=== PATIENT | female | born 1945 | race Caucasian/White ===

== ENCOUNTER 2021-04-29 08:48 | Outpatient (REF) | payer MEDICARE, OTHER, SELFPAY ==
[2021-04-29 10:55] LABS: Basophils Percent Auto 0.6 % (0-2)
[2021-04-29 10:57] LABS: Eosinophils Absolute Auto 0.2 X10*3/uL (0.0-0.4); Eosinophils Percent Auto 2.1 % (0-4); Hematocrit 45.1 % (37-47); Hemoglobin 14.2 g/dl (12.0-16.0); Imm Gran Abs Auto 0.02 X10*3/uL (0.00-0.03); Imm Gran Pct Auto 0.3 % (0.0-0.4); Lymphocytes Absolute Auto 1.5 X10*3/uL (1.2-4.9); Lymphocytes Percent Auto 20.8 % (20-40); Mean Corpuscular HGB Conc 31.5 g/dl (31.0-35.0); Mean Corpuscular Volume 95.3 fL (80-98); Mean Platelet Volume 13.4 fL (9.4-12.3); Monocytes Absolute Auto 0.8 X10*3/uL (0.1-1.2); Monocytes Percent Auto 10.4 % (2-11); Neutrophils Absolute Auto 4.8 X10*3/uL (2.0-8.3); Neutrophils Percent Auto 65.8 % (45-73); Platelet Count 193 X10*3/uL (160-400); Red Blood Count 4.73 X10*6/uL (4.20-5.50); Red Cell Distribution Width 13.2 % (11.0-16.0); White Blood Count 7.2 X10*3/uL (4.8-10.8)
[2021-04-29 11:20] LABS: Alanine Aminotransferase 30 U/L (0-31); Alkaline Phosphatase 91 U/L (39-117); Anion Gap 12 (12-20); Aspartate Amino Transferase 27 U/L (5-31); Bilirubin Total 0.7 mg/dL (0.0-1.0); Blood Urea Nitrogen 15 mg/dL (9-16); Calcium 8.9 mg/dL (8.4-10.2); Carbon Dioxide 28 mmol/L (22-29); Chloride 108 mmol/L (96-108); Cholesterol 154 mg/dL; Estimated Glomerular Filt Rate > 60; Glucose Random 97 mg/dL (60-115); HDL Cholesterol 45 mg/dL; LDL Cholesterol Calculated 96 mg/dl; Sodium 143 mmol/L (135-145); Total Protein 6.7 g/dL (6.5-8.0); Triglycerides 69 mg/dL
[2021-04-29 11:42] LABS: Free T4 (Free Thyroxine) 0.82 ng/dL (0.71-1.85); Thyroid Stimulating Hormone 2.81 uIU/mL (0.32-4.0); Vitamin D 25-OH Total 11.4 ng/mL (>30)
[2021-04-29 12:20] LABS: Folate 14.2 ng/mL (> or = 4.0); Vitamin B12 229 pg/mL (200-900)
== END 2021-04-29 08:49 | disposition home or self-care (01) ==
LOC: HO.LAB 08:48
PROVIDERS: PCP Internal Medicine; Visit Provider Internal Medicine
DX: E78.00 Pure hypercholesterolemia, unspecified (principal); I10 Essential (primary) hypertension
CPT/HCPCS: 36415; 80053; 80061; 82306; 82607; 82746; 84439; 84443; 85025

== ENCOUNTER 2021-07-24 08:39 | Outpatient (REF) | payer MEDICARE, OTHER, SELFPAY ==
--- NOTE | ~2021-07-24 | MM_ITS ---
EXAMINATION: MM SCREENING DIGITAL BREAST TOMOSYNTHESIS, BILATERAL CLINICAL INFORMATION: Screening. Asymptomatic. The lifetime risk of breast cancer based on the Tyrer-Cuzick Model is 3%. COMPARISON: Mammography: 06/24/2020, 06/19/2019, 06/17/2018, 06/10/2017; targeted left breast ultrasound 07/06/2018, targeted right breast ultrasound 05/27/2016. TECHNIQUE: Digital breast tomosynthesis is performed in both the craniocaudal and mediolateral oblique views along with computer-aided detection (CAD). Synthesized 2D images are generated from the tomosynthesis. FINDINGS: There are scattered areas of fibroglandular density (ACR BI-RADS breast composition Category b). There is fibronodular parenchymal pattern with small scattered waxing and waning nodularity. There is no significant mass or architectural abnormality. Again, there are scattered punctate and vascular calcifications. The axilla and skin contours are unremarkable. No significant changes from prior exams. MM/MM tomosynthesis screening BI IMPRESSION: No significant changes from prior studies. ASSESSMENT: BI-RADS 2: Benign RECOMMENDATION: Routine annual mammography screening. This patient's information was entered into a reminder system with a target due date for their next mammogram.
== END 2021-07-24 08:40 | disposition home or self-care (01) ==
LOC: HO.MAMMO 08:39
PROVIDERS: PCP Internal Medicine; Visit Provider Internal Medicine
DX: Z12.31 Encounter for screening mammogram for malignant neoplasm of breast (principal)
CPT/HCPCS: 77063; 77067

== ENCOUNTER 2022-02-03 07:28 | Outpatient (REF) | payer MEDICARE, OTHER, SELFPAY ==
[2022-02-03 07:52] LABS: MANUAL DIFF FLAG NO
[2022-02-03 08:03] LABS: Basophils Percent Auto 0.4 % (0-2); Eosinophils Absolute Auto 0.2 X10*3/uL (0.0-0.4); Eosinophils Percent Auto 2.9 % (0-4); Hematocrit 44.4 % (37.0-47.0); Hemoglobin 13.8 g/dl (12.0-16.0); Imm Gran Abs Auto 0.02 X10*3/uL (0.00-0.03); Imm Gran Pct Auto 0.3 % (0.0-0.4); Lymphocytes Absolute Auto 1.8 X10*3/uL (1.2-4.9); Mean Corpuscular HGB Conc 31.1 g/dl (31.0-35.0); Mean Corpuscular Hemoglobin 29.5 pg (27.0-33.0); Mean Corpuscular Volume 94.9 fL (80.0-98.0); Mean Platelet Volume 12.7 fL (9.4-12.3); Monocytes Absolute Auto 0.8 X10*3/uL (0.1-1.2); Monocytes Percent Auto 10.6 % (2-11); Neutrophils Absolute Auto 4.5 x10*3/uL (2.0-8.3); Neutrophils Percent Auto 61.8 % (45-73); Platelet Count 202 X10*3/uL (160-400); Red Blood Count 4.68 X10*6/uL (4.20-5.50); Red Cell Distribution Width 12.9 % (11.0-16.0); White Blood Count 7.3 X10*3/uL (4.8-10.8)
[2022-02-03 08:33] LABS: Alanine Aminotransferase 25 U/L (0-31); Albumin Level 3.9 g/dL (3.5-5.0); Alkaline Phosphatase 86 U/L (39-117); Anion Gap 12 (12-20); Aspartate Amino Transferase 23 U/L (5-31); Bilirubin Total 0.9 mg/dL (0.0-1.0); Blood Urea Nitrogen 18 mg/dL (9-16); Calcium 9.3 mg/dL (8.4-10.2); Carbon Dioxide 25 mmol/L (22-29); Chloride 108 mmol/L (96-108); Cholesterol 141 mg/dL; Estimated Glomerular Filt Rate > 60; Glucose Random 103 mg/dL (60-115); HDL Cholesterol 39 mg/dL; LDL Cholesterol Calculated 83 mg/dl; Potassium 4.3 mmol/L (3.3-5.1); Sodium 141 mmol/L (135-145); Total Protein 6.8 g/dL (6.5-8.0); Triglycerides 96 mg/dL
[2022-02-03 09:05] LABS: Folate 14.7 ng/mL (> or = 4.0); Vitamin B12 296 pg/mL (200-900)
[2022-02-03 09:07] LABS: Free T4 (Free Thyroxine) 0.99 ng/dL (0.71-1.85); Thyroid Stimulating Hormone 3.49 uIU/mL (0.32-4.0)
[2022-02-05 14:25] LABS: Vitamin D 25-OH Total 12.7 ng/mL (>30)
== END 2022-02-03 07:29 | disposition home or self-care (01) ==
LOC: HO.LAB 07:28
PROVIDERS: PCP Internal Medicine; Visit Provider Internal Medicine
DX: E78.00 Pure hypercholesterolemia, unspecified (principal)
CPT/HCPCS: 36415; 80053; 80061; 82306; 82607; 82746; 84439; 84443; 85025

== ENCOUNTER 2022-06-15 07:19 | Outpatient (REF) | payer BC, SELFPAY ==
[2022-06-15 08:28] LABS: Anion Gap 15 (12-20); Blood Urea Nitrogen 19 mg/dL (9-16); Calcium 9.2 mg/dL (8.4-10.2); Carbon Dioxide 27 mmol/L (22-29); Chloride 107 mmol/L (96-108); Estimated Glomerular Filt Rate > 60; Glucose Fasting 96 mg/dL (60-99); Potassium 4.6 mmol/L (3.3-5.1); Sodium 144 mmol/L (135-145)
== END 2022-06-15 07:20 | disposition home or self-care (01) ==
LOC: HO.LAB 07:19
PROVIDERS: PCP Internal Medicine; Visit Provider Nurse Practitioner Family
DX: Z13.1 Encounter for screening for diabetes mellitus (principal)
CPT/HCPCS: 36415; 80048

== ENCOUNTER 2022-06-19 08:35 | Outpatient (REF) | payer MEDICARE, OTHER, SELFPAY ==
--- NOTE | ~2022-06-19 | MM_ITS ---
EXAMINATION: BONE DENSITOMETRY CLINICAL INDICATION: Menopause. COMPARISON: Previous BD dated 06/17/2018 and baseline BD dated 11/30/2005. TECHNIQUE: Using a [employer] DXA System (software version: 13.1) manufactured by [employer], dual-energy x-ray absorptiometry was performed of the lumbar spine and left hip. The images are of good technical quality. Summary results are attached. FINDINGS: AP SPINE L1-L4: Current: BMD 1.278 g/cm2, Z-score 1.6, T-score 0.8, normal, 3.5% decrease from previous, 12.6% increase from baseline (<5% change is not significant). Prior: BMD 1.325 g/cm2. Baseline: BMD 1.135 g/cm2. LEFT FEMUR, NECK: Current: BMD 0.689 g/cm2, Z-score -1.1, T-score -2.5, osteoporosis. Prior: BMD 0.924 g/cm2. Baseline: BMD 0.844 g/cm2. LEFT FEMUR, TOTAL: Current: BMD 0.641 g/cm2, Z-score -1.7, T-score -2.9, osteoporosis, 29.2% decrease from previous, 28.8% decrease from baseline (<5% change is not significant). Prior: BMD 0.905 g/cm2. Baseline: BMD 0.900 g/cm2. IDENTIFIED RISK FACTORS: Early menopause, secondary osteoporosis. HISTORY OF FRACTURE: None listed. MEDICATIONS: None listed. MM/XR DEXA axial skeleton IMPRESSION: 1. DIAGNOSIS: Osteoporosis based on the lowest T-score value of -2.9 in the total femur applying World Health Organization criteria. 2. 10-YEAR FRACTURE RISK PREDICTION, FRAX: According to the guidelines, FRAX calculation should only be performed on patients in the osteopenia bone density category. Therefore, FRAX was not performed on this patient. 3. Treatment Recommendations: NOF guidelines recommend consideration for treatment in postmenopausal women and men age 50 and older presenting with the following: -A hip or vertebral (clinical or morphometric) fracture. -T-score less than or equal to -2.5 at the femoral neck or spine after appropriate evaluation to exclude secondary causes. -Low bone mass at the hip or spine and a 10-year fracture probability by FRAX of greater than or equal to 3% for hip fracture or greater than or equal to 20% for major osteoporotic fracture based on the [place] adapted WHO algorithm. 4. Other Recommendations: All treatment decisions require clinical judgment and consideration of individual patient factors, including patient preferences, comorbidities, previous drug use, risk factors not captured in the FRAX model (e.g. frailty, falls, vitamin D deficiency, increased bone turnover, interval significant decline in bone density) and possible under or overestimation of fracture risk by FRAX. Additional medical evaluation for secondary cause of low bone mineral density may be appropriate. FUTURE SCAN RECOMMENDATION: People with diagnosed cases of osteoporosis or at high risk for fracture should have regular bone mineral density tests. For patients eligible for Medicare, routine testing is allowed once every 2 years. The testing frequency can be increased to one year for patients who have rapidly progressing disease, those who are receiving or discontinuing medical therapy to restore bone mass, or have additional risk factors.
== END 2022-06-19 08:36 | disposition home or self-care (01) ==
LOC: HO.MAMMO 08:35
PROVIDERS: Visit Provider Nurse Practitioner Family
DX: Z78.0 Asymptomatic menopausal state (principal)
CPT/HCPCS: 77080

== ENCOUNTER 2022-07-28 08:10 | Outpatient (REF) | payer MEDICARE, OTHER, SELFPAY ==
--- NOTE | ~2022-07-28 | MM_ITS ---
EXAMINATION: MM SCREENING DIGITAL BREAST TOMOSYNTHESIS, BILATERAL CLINICAL INFORMATION: Screening. Asymptomatic. The lifetime risk of breast cancer based on the Tyrer-Cuzick Model is 1.6%. COMPARISON: Mammography: 07/24/2021 and studies dating back to 03/10/2014. TECHNIQUE: Digital breast tomosynthesis is performed in both the craniocaudal and mediolateral oblique views along with computer-aided detection (CAD). Synthesized 2D images are generated from the tomosynthesis. FINDINGS: There are scattered areas of fibroglandular density (ACR BI-RADS breast composition Category b). There are no new significant masses, abnormal calcifications, or other abnormalities. There is multiplicity and bilaterality of stable-appearing calcifications. There is waxing and waning of circumscribed densities consistent with cysts as had been shown on previous ultrasound study of 07/06/2018 and 05/27/2016. MM/MM tomosynthesis screening BI IMPRESSION: No significant changes from prior exam. ASSESSMENT: BI-RADS 2: Benign. RECOMMENDATION: Routine annual mammography screening. This patient's information was entered into a reminder system with a target due date for their next mammogram.
== END 2022-07-28 08:11 | disposition home or self-care (01) ==
LOC: HO.MAMMO 08:10
PROVIDERS: Visit Provider Internal Medicine
DX: Z12.31 Encounter for screening mammogram for malignant neoplasm of breast (principal)
CPT/HCPCS: 77063; 77067

== ENCOUNTER 2023-05-05 12:12 | Outpatient (REF) | payer MEDICARE, OTHER, SELFPAY ==
--- NOTE | ~2023-05-05 | US_ITS ---
EXAMINATION: US DIAGNOSTIC ULTRASOUND BREAST, RIGHT CLINICAL INFORMATION: Tender erythematous area lower outer right breast, day 3 oral antibiotic coverage. No drainage. COMPARISON: Mammography 07/28/2022, 07/24/2021 TECHNIQUE: Patient declined diagnostic right mammography. Exam proceeded with targeted right breast ultrasound using grayscale imaging and color Doppler without and with harmonics. Patient is able to point to area of concern at time of imaging. FINDINGS: There is a discoid shape intradermal anechoic lesion at site of clinical concern 8:00 position 5 cm from nipple measuring 0.2 cm thickness by 1.6 x 1.3 cm across. There is surrounding hyperemia on color Doppler. Margins are circumscribed and there is no subdermal extension. No edema tracking in soft tissue planes. There is incidental apocrine cyst in the interrogated area measuring 3 x 4 mm with geographic peripheral intermediate echogenicity, fine internal septation, and increased through-transmission of sound. No solid component or color flow. No solid mass or architectural abnormality. Results are discussed with the patient at time of visit. Patient to continue with the antibiotics and short-term follow-up with her primary care provider as planned. US/US breast RT limited IMPRESSION: -Small intradermal cystic lesion lesion 8:00 position measuring 0.2 cm thickness by 1.6 x 1.3 cm across with surrounding hyperemia. No subdermal extension. ASSESSMENT: BI-RADS 3: Probably Benign RECOMMENDATION: -Continue with antibiotics as prescribed. -Short interval follow-up with her primary care provider for ongoing management as needed. -Today's ultrasound may serve as baseline for follow-up imaging if clinically indicated. This patient's information was entered into a reminder system with a target due date for their next mammogram.
== END 2023-05-05 12:13 | disposition home or self-care (01) ==
LOC: HO.MAMMO 12:12
PROVIDERS: Visit Provider Physician Assistant
DX: N63.15 Unspecified lump in the right breast, overlapping quadrants (principal)
CPT/HCPCS: 76642

== ENCOUNTER 2023-07-06 07:16 | Outpatient (REF) | payer MEDICARE, OTHER, SELFPAY ==
[2023-07-06 07:34] LABS: MANUAL DIFF FLAG NO
[2023-07-06 08:19] LABS: Basophils Percent Auto 0.4 % (0-2); Eosinophils Absolute Auto 0.3 X10*3/uL (0.0-0.4); Eosinophils Percent Auto 3.9 % (0-4); Hematocrit 41.9 % (37.0-47.0); Hemoglobin 13.1 g/dl (12.0-16.0); Imm Gran Abs Auto 0.02 X10*3/uL (0.00-0.03); Imm Gran Pct Auto 0.3 % (0.0-0.4); Lymphocytes Absolute Auto 1.5 X10*3/uL (1.2-4.9); Lymphocytes Percent Auto 21.4 % (20-40); Mean Corpuscular HGB Conc 31.3 g/dl (31.0-35.0); Mean Corpuscular Hemoglobin 29.4 pg (27.0-33.0); Mean Corpuscular Volume 94.2 fL (80.0-98.0); Mean Platelet Volume 12.3 fL (9.4-12.3); Monocytes Absolute Auto 0.8 X10*3/uL (0.1-1.2); Monocytes Percent Auto 10.7 % (2-11); Neutrophils Absolute Auto 4.4 x10*3/uL (2.0-8.3); Neutrophils Percent Auto 63.3 % (45-73); Platelet Count 211 X10*3/uL (160-400); Red Blood Count 4.45 X10*6/uL (4.20-5.50); Red Cell Distribution Width 13.1 % (11.0-16.0)
[2023-07-06 08:25] LABS: Estimated Average Glucose 108 mg/dL; Hemoglobin A1c % 5.4 % (<6.0)
[2023-07-06 08:55] LABS: Alanine Aminotransferase 26 U/L (0-31); Albumin Level 3.8 g/dL (3.5-5.0); Alkaline Phosphatase 92 U/L (39-117); Anion Gap 12 (12-20); Aspartate Amino Transferase 22 U/L (5-31); Bilirubin Total 0.5 mg/dL (0.0-1.0); Blood Urea Nitrogen 15 mg/dL (9-16); Calcium 9.3 mg/dL (8.4-10.2); Carbon Dioxide 27 mmol/L (22-29); Chloride 109 mmol/L (96-108); Cholesterol 138 mg/dL (<200); Estimated Glomerular Filt Rate > 60; Glucose Random 99 mg/dL (60-115); HDL Cholesterol 46 mg/dL (>40); LDL Cholesterol Calculated 79 mg/dL (<100); Potassium 4.8 mmol/L (3.3-5.1); Sodium 143 mmol/L (135-145); Total Protein 7.2 g/dL (6.5-8.0); Triglycerides 66 mg/dL (<150)
[2023-07-06 09:11] LABS: Free T4 (Free Thyroxine) 0.72 ng/dL (0.71-1.85); Thyroid Stimulating Hormone 2.89 uIU/mL (0.32-4.0); Vitamin D 25-OH Total 14.7 ng/mL (>30)
[2023-07-06 09:28] LABS: Folate 10.6 ng/mL (> or = 4.0); Vitamin B12 284 pg/mL (200-900)
== END 2023-07-06 07:17 | disposition home or self-care (01) ==
LOC: HO.LAB 07:16
PROVIDERS: PCP Internal Medicine; Visit Provider Internal Medicine
DX: R73.01 Impaired fasting glucose (principal); E78.00 Pure hypercholesterolemia, unspecified; M81.0 Age-related osteoporosis without current pathological fracture
CPT/HCPCS: 36415; 80053; 80061; 82306; 82607; 82746; 83036; 84439; 84443; 85025

== ENCOUNTER 2023-07-15 09:17 | Outpatient (AMB) | payer MEDICARE, OTHER, SELFPAY ==
[2023-07-15 09:42] VITALS: BP 144/80; PULSE 76; O2SAT 98; BMI 38.7
--- NOTE | 2023-07-15 09:42 | MHC.PC.OV ---
Vital Signs 07/15/23 09:42 Height 5 ft 3 in Weight 218 lb 4 oz BMI 38.7 BP 144/80 H Blood Pressure Location Lt brachial Position Sitting Pulse 76 Pulse Source Pulse Oximeter Pulse Oximetry (%) 98 Oxygen Delivery Method Room Air Intake Visit Reasons: HTN, asthma cholesterol Intake Note: Pt is here for HTN, Asthma and Cholesterol F/U. 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 Accompanied by: Spouse Allergies No Known Allergies Allergy (Verified 07/15/23 09:43) Medication List - Last Reconciled 07/15/23 by Compa Zimmerman MD albuterol sulfate 0.63 mg inhalation Q4-6H PRN albuterol sulfate 90 mcg/actuation 2 puffs inhalation Q4-6H PRN atorvastatin 10 mg PO DAILY halobetasol propionate 0.05% 1 appl topical DAILY hydrochlorothiazide 12.5 mg PO DAILY hydrocortisone 2.5% 1 appl topical TID PRN lisinopril 40 mg PO DAILY mometasone (Asmanex Twisthaler) 1 inh inhalation DAILY 90 days nystatin 1 appl topical BID Tobacco use date assessed: 03/26/23 Fall risk assessment: No Falls in past year Last assessed Fall Risk: 07/15/23 Dental Screening Dental Screen Date: 07/15/23 Did you have a dental visit in the last 12 months?: Yes Did you have a dental problem in the last 6 months where you did not have access to dental care?: No Was dental information given to patient?: Patient has dentist HPI HTN, asthma cholesterol HPI Details 77-year-old obese female with asthma lumbar degenerative disc disease hypercholesterolemia hypertension impaired glucose tolerance last seen in March 2023 on narcotic pain medication. Colonoscopy due mammogram next month. Review of the notes in May 2023 patient had an anterior right total hip replacement by Dr. Fields. Before that was seen by the nurse practitioner for a concern on a right breast lump noted small intradermal cystic lesion 8 o'clock position measuring 2 mm by 1.6 x 1.3 diagnosis of probably benign advised short term follow-up.. did not go for PT. breathing is good and no sob and notusing inhaler [facility] Medical History (Updated 07/15/23 @ 09:59 by Compa Zimmerman MD) Asthma Breast lump on right side at 6 o'clock position Colon cancer screening Degenerative disc disease, lumbar Hypercholesterolemia Hypertension Obesity (BMI 30-39.9) Osteopenia Post-menopausal Screening for diabetes mellitus Surgical History (Updated 07/15/23 @ 10:01 by Compa Zimmerman MD) History of repair of left rotator cuff History of right cataract surgery History of total right hip replacement History of tubal ligation Family History Father No problems noted. Mother Liver cancer Social History Housing: House Alcohol intake: never Patient Tobacco Use Status: Former Tobacco user Tobacco use type: Cigarette Years Smoked: 16 years old 6 months only e-Cigarette/Vaping Use: Never Used Second Hand Smoke Exposure: No service: No Current occupational status: retired Cognitive needs: No Hearing needs: No Vision needs: Yes Questionnaire Thrive Questionnaire Date Thrive assessed: 12/09/22 PATRICIO-7 AMB Questionnaire PATRICIO-7 Date PATRICIO - 7 assessed: 12/09/22 Source: Developed by Drs. James Bolton, Kimberly Myers, Grabiel Kolb and colleagues, with an educational ravinder from [employer]. Physical exam (Primary Care) Vital Signs: Last Vital Signs Pulse 76 07/15/23 09:42 BP 144/80 H 07/15/23 09:42 Pulse Ox 98 07/15/23 09:42 Oxygen Delivery Method Room Air 07/15/23 09:42 BMI result Body Mass Index 38.7 Tobacco/Smoking Status: Tobacco use Status Tobacco use date assessed 03/26/23 07/15/23 09:51 Patient Tobacco Use Status Former Tobacco user 07/15/23 09:51 Tobacco use type Cigarette 07/15/23 09:51 e-Cigarette/Vaping Use Never Used 07/15/23 09:51 Thrive Assessment: Date of Thrive Assessment Date Thrive assessed 12/09/22 07/15/23 09:51 Const General: alert; No acute distress Eyes Conjunctivae: conjunctivae normal Resp Auscultation: clear to auscultation bilaterally Cardio Rate: regular rate Rhythm: regular rhythm GI Inspection: Yes normal to inspection Extrem General: Yes normal to inspection and No edema Assessment and Plan Assessment & Plan (1) Cyst of right breast: Code(s): N60.01 - Solitary cyst of right breast Plan: better (2) Colonoscopy refused: Code(s): Z53.20 - Procedure and treatment not carried out because of patient's decision for unspecified reasons Plan: still 06/2023 (3) Impaired fasting blood sugar: Code(s): R73.01 - Impaired fasting glucose Plan: Decrease the amount of carbohydrate intake, pasta, bread, rice and potatoes are all sugar and that is aside from all the sweet stuff, remember that fruits are good but they are Sweet also. (4) Vitamin B12 deficiency: Code(s): E53.8 - Deficiency of other specified B group vitamins Plan: Vitamin B12 1000-mcg once a day (5) Hypertension: Code(s): I10 - Essential (primary) hypertension Qualifiers: Hypertension type: essential hypertension Qualified Code(s): I10 - Essential (primary) hypertension Plan: Continue with blood pressure medication. Decrease salt intake and exercise patient on lisinopril 40 mg once a day (6) Obesity (BMI 30-39.9): Code(s): E66.9 - Obesity, unspecified Plan: Diet and exercise (7) Degenerative disc disease, lumbar: Code(s): M51.36 - Other intervertebral disc degeneration, lumbar region (8) Hypercholesterolemia: Code(s): E78.00 - Pure hypercholesterolemia, unspecified Plan: Avoid fried foods, chicken skin, eggs, butter margarine, pastries and meat. Be it pork or beef they have a lot of cholesterol LDL goal of less than 130 and triglyceride of less than 150 patient is on atorvastatin 10 mg once a day (9) Asthma: Code(s): J45.909 - Unspecified asthma, uncomplicated Qualifiers: Asthma complication type: uncomplicated Asthma persistence: intermittent Asthma severity: mild Qualified Code(s): J45.20 - Mild intermittent asthma, uncomplicated Plan: Continue with inhaler as needed (10) History of total right hip replacement: Comment: 05/26/23-[place] Dr. Fields Code(s): Z96.641 - Presence of right artificial hip joint Plan: Patient follows up with orthopedics Medications: New albuterol sulfate 90 mcg/actuation 2 puffs inhalation Q4-6H PRN 8.5 grams 0RF bronchospasm J45.909 - Unspecified asthma, uncomplicated hydrochlorothiazide 12.5 mg PO DAILY 90 tabs 1RF I10 - Essential (primary) hypertension Refilled atorvastatin 10 mg PO DAILY 90 tabs 2RF E78.00 - Pure hypercholesterolemia, unspecified Coding Level of Care Code Est Pt Level 4 (65165) Diagnoses Cyst of right breast N60.01 Colonoscopy refused Z53.20 Impaired fasting blood sugar R73.01 Vitamin B12 deficiency E53.8 Hypertension I10 Hypertension type: essential hypertension Obesity (BMI 30-39.9) E66.9 Degenerative disc disease, lumbar M51.36 Hypercholesterolemia E78.00 Asthma J45.20 Asthma complication type: uncomplicated Asthma persistence: intermittent Asthma severity: mild History of total right hip replacement Z96.641
== END 2023-07-15 10:39 | disposition home or self-care (01) ==
LOC: HO.HMGH 09:17
PROVIDERS: PCP Internal Medicine; Visit Provider Internal Medicine
DX: I10 Essential (primary) hypertension (principal); J45.20 Mild intermittent asthma, uncomplicated; N60.01 Solitary cyst of right breast; Z53.20 Procedure and treatment not carried out because of patient's decision for unspecified reasons; R73.01 Impaired fasting glucose; E66.9 Obesity, unspecified; E53.8 Deficiency of other specified B group vitamins; Z96.641 Presence of right artificial hip joint; M51.36 Other intervertebral disc degeneration, lumbar region; E78.00 Pure hypercholesterolemia, unspecified
CPT/HCPCS: 99214

== ENCOUNTER 2023-10-29 08:03 | Outpatient (REF) | payer MEDICARE, OTHER, SELFPAY ==
--- NOTE | ~2023-10-29 | MM_ITS ---
EXAMINATION: MM SCREENING DIGITAL BREAST TOMOSYNTHESIS, BILATERAL CLINICAL INFORMATION: Screening. Asymptomatic. COMPARISON: Mammography: This study is compared with prior exams dating back to 2019. TECHNIQUE: Digital breast tomosynthesis is performed in both the craniocaudal and mediolateral oblique views along with computer-aided detection (CAD). Synthesized 2D images are generated from the tomosynthesis. FINDINGS: There are scattered areas of fibroglandular density (ACR BI-RADS breast composition Category b). There are no significant masses, abnormal calcifications, or other abnormalities. There is a tissue marker in the retroareolar region of the upper outer quadrant of the left breast from prior benign percutaneous biopsy. MM/MM tomosynthesis screening BI IMPRESSION: No mammographic evidence of malignancy. ASSESSMENT: BI-RADS BI-RADS 2 - Benign Findings RECOMMENDATION: Routine annual mammography screening. 1 year F/U This examination should not preclude the clinical evaluation of a suspicious palpable abnormality. This patient's information was entered into a reminder system with a target due date for their next mammogram.
== END 2023-10-29 08:04 | disposition home or self-care (01) ==
LOC: HO.MAMMO 08:03
PROVIDERS: PCP Internal Medicine; Visit Provider Internal Medicine
DX: Z12.31 Encounter for screening mammogram for malignant neoplasm of breast (principal)
CPT/HCPCS: 77063; 77067

== ENCOUNTER → 2023-10-29 08:30 | Outpatient (BNV) | payer MEDICARE, OTHER, SELFPAY | PROVIDERS: PCP Internal Medicine; Visit Provider Radiology Diagnostic Radiology | DX: Z12.31 Encounter for screening mammogram for malignant neoplasm of breast (principal) | CPT/HCPCS: 77063; 77067 ==

== ENCOUNTER 2023-11-01 10:17 | Outpatient (AMB) | payer MEDICARE, OTHER, SELFPAY ==
[2023-11-01 10:19] VITALS: BP 132/70; PULSE 89; O2SAT 96; BMI 38.8
--- NOTE | 2023-11-01 10:19 | MHC.PC.OV ---
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: No Allergies No Known Allergies Allergy (Verified 11/01/23 10:20) Tobacco use date assessed: 11/01/23 Fall risk assessment: No Falls in past year Last assessed Fall Risk: 11/01/23 Dental Screening Dental Screen Date: 11/01/23 Did you have a dental visit in the last 12 months?: Yes Did you have a dental problem in the last 6 months where you did not have access to dental care?: No Was dental information given to patient?: Patient has dentist HPI 3 month f/u HPI Details 78-year-old obese female with impaired glucose tolerance hypertension hypercholesterolemia asthma degenerative joint disease last seen in June 2023. Patient did declined colonoscopy mammogram is due for July and bone density is up-to-date. [facility] Medical History (Updated 07/15/23 @ 09:59 by Compa Zimmerman MD) Breast lump on right side at 6 o'clock position Post-menopausal Screening for diabetes mellitus Colon cancer screening Hypertension Obesity (BMI 30-39.9) Degenerative disc disease, lumbar Osteopenia Hypercholesterolemia Asthma Surgical History (Updated 07/15/23 @ 10:01 by Compa Zimmerman MD) History of total right hip replacement History of right cataract surgery History of repair of left rotator cuff History of tubal ligation Family History Father No problems noted. Mother Liver cancer Social History Housing: House Alcohol intake: never Patient Tobacco Use Status: Former Tobacco user Tobacco use type: Cigarette Years Smoked: 16 years old 6 months only e-Cigarette/Vaping Use: Never Used Second Hand Smoke Exposure: No service: No Current occupational status: retired Cognitive needs: No Hearing needs: No Vision needs: Yes Questionnaire Thrive Questionnaire Date Thrive assessed: 12/09/22 AUDIT C Alcohol Use Questionnaire (AUDIT-C) 1. How often do you have a drink containing alcohol?: Never 2. How many drinks containing alcohol do you have on a typical day when you are drinking?: 1 or 2 (0) 3. How often do you have six or more drinks on one occasion?: Never Total Score: 0 PATRICIO-7 AMB Questionnaire PATRICIO-7 Date PATRICIO - 7 assessed: 12/09/22 Source: Developed by Drs. James Bolton, Kimberly Myers, Grabiel Kolb and colleagues, with an educational ravinder from [employer]. Physical exam (Primary Care) Vital Signs: Oxygen Delivery Method Room Air 11/01/23 10:19 BMI result Body Mass Index 38.8 Tobacco/Smoking Status: Tobacco use Status Tobacco use date assessed 11/01/23 11/01/23 10:20 Patient Tobacco Use Status Former Tobacco user 11/01/23 10:20 Tobacco use type Cigarette 11/01/23 10:20 e-Cigarette/Vaping Use Never Used 11/01/23 10:20 Thrive Assessment: Date of Thrive Assessment Date Thrive assessed 12/09/22 11/01/23 10:20 Const General: alert; No acute distress Eyes Conjunctivae: conjunctivae normal Resp Auscultation: clear to auscultation bilaterally Cardio Rate: regular rate Rhythm: regular rhythm GI Inspection: Yes normal to inspection Extrem General: Yes normal to inspection and No edema Assessment and Plan Assessment & Plan (1) Asthma: Code(s): J45.909 - Unspecified asthma, uncomplicated Qualifiers: Asthma complication type: uncomplicated Asthma persistence: intermittent Asthma severity: mild Qualified Code(s): J45.20 - Mild intermittent asthma, uncomplicated Plan: Continue with inhaler as well as the controller inhaler. (2) Hypercholesterolemia: Code(s): E78.00 - Pure hypercholesterolemia, unspecified Plan: Avoid fried foods, chicken skin, eggs, butter margarine, pastries and meat. Be it pork or beef they have a lot of cholesterol LDL goal of less than 130 and triglyceride of less than 150 patient is on atorvastatin 10 mg once a day (3) Obesity (BMI 30-39.9): Code(s): E66.9 - Obesity, unspecified Plan: Diet and exercise (4) Hypertension: Code(s): I10 - Essential (primary) hypertension Qualifiers: Hypertension type: essential hypertension Qualified Code(s): I10 - Essential (primary) hypertension Plan: Continue with blood pressure medication. Decrease salt intake and exercise patient on hydrochlorothiazide 12.5 mg once a day lisinopril 40 mg once a day (5) Impaired fasting blood sugar: Code(s): R73.01 - Impaired fasting glucose Plan: Decrease the amount of carbohydrate intake, pasta, bread, rice and potatoes are all sugar and that is aside from all the sweet stuff, remember that fruits are good but they are Sweet also. June 2023 last blood work (6) Degenerative disc disease, lumbar: Code(s): M51.36 - Other intervertebral disc degeneration, lumbar region Plan: Continue to be active Coding Level of Care Code Est Pt Level 4 (70454) Diagnoses Mild intermittent asthma without complication J45.20 Asthma complication type: uncomplicated Asthma persistence: intermittent Asthma severity: mild Hypercholesterolemia E78.00 Obesity (BMI 30-39.9) E66.9 Essential hypertension I10 Hypertension type: essential hypertension Impaired fasting blood sugar R73.01 Degenerative disc disease, lumbar M51.36
== END 2023-11-01 11:13 | disposition home or self-care (01) ==
PROVIDERS: PCP Internal Medicine; Visit Provider Internal Medicine
DX: J45.20 Mild intermittent asthma, uncomplicated (principal); E78.00 Pure hypercholesterolemia, unspecified; E66.9 Obesity, unspecified; Z68.38 Body mass index [BMI] 38.0-38.9, adult; I10 Essential (primary) hypertension; R73.01 Impaired fasting glucose; M51.36 Other intervertebral disc degeneration, lumbar region
CPT/HCPCS: 99214

== ENCOUNTER 2023-12-08 11:22 | Outpatient (REF) | payer MEDICARE, OTHER, SELFPAY ==
--- NOTE | ~2023-12-08 | US_ITS ---
ULTRASOUND SOFT TISSUES LEFT FOOT CLINICAL: Lesion of the plantar aspect of left foot. COMPARISON: None. TECHNIQUE: Using a linear transducer grayscale and color modalities, ultrasound examination performed of the urinary clinical concern in the plantar soft tissues of the left foot. FINDINGS: Corresponding with the clinical finding, a 0.8 x 0.3 x 1.2 cm hypoechoic, circumscribed subdermal lesion is seen. This shows no significant associated color Doppler flow. No sinus tract is noted. The adjacent cutaneous, subcutaneous, muscular and fascial planes are unremarkable. No foreign body is seen. US/US extremity nonvascular IMPRESSION: Corresponding with the palpable finding in the left plantar soft tissues, a 1.2 cm hypoechoic subdermal lesion is seen. The possibilities of a plantar fibroma or, less likely, a lipoma or a complex epidermal inclusion cyst are raised. The exact etiology is indeterminate. If of continued clinical concern, this can be further evaluated with MRI.
== END 2023-12-08 11:23 | disposition home or self-care (01) ==
LOC: HO.US 11:22
PROVIDERS: PCP Internal Medicine; Visit Provider Dermatology
DX: D48.5 Neoplasm of uncertain behavior of skin (principal)
CPT/HCPCS: 76882

== ENCOUNTER 2024-02-04 08:43 | Outpatient (AMB) | payer MEDICARE, OTHER, SELFPAY ==
--- NOTE | 2024-02-04 08:57 | A.OFFPC_ITS ---
Vital Signs 02/04/24 08:59 Height 5 ft 3 in Weight 220 lb 4 oz BMI 39.0 BP 140/70 H Blood Pressure Location Lt brachial Position Sitting Pulse 101 H Pulse Source Pulse Oximeter Pulse Oximetry (%) 96 Oxygen Delivery Method Room Air Intake Visit Reasons: htn Intake Note: Patient is here to follow up on HTN. 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 by: Spouse Allergies No Known Allergies Allergy (Verified 02/04/24 08:58) Tobacco use date assessed: 02/04/24 Fall risk assessment: No Falls in past year Last assessed Fall Risk: 02/04/24 Dental Screening Dental Screen Date: 02/04/24 Did you have a dental visit in the last 12 months?: Yes Did you have a dental problem in the last 6 months where you did not have access to dental care?: No Was dental information given to patient?: Patient has dentist HPI htn HPI Details 78-year-old obese female with asthma hyp ercholesterolemia hypertension impaired glucose tolerance and lumbar degenerative disc disease last seen in October 2023. Patient is due for colonoscopy up-to-date with mammogram up-to-date with bone density. Review of the notes had ultrasound of the left foot showing subdermal lesion PFSH Medical History (Updated 02/04/24 @ 09:47 by Compa Zimmerman MD) Breast lump on right side at 6 o'clock position Post-menopausal Screening for diabetes mellitus Colon cancer screening Hypertension Obesity (BMI 30-39.9) Degenerative disc disease, lumbar Osteopenia Hypercholesterolemia Asthma Surgical History History of total right hip replacement History of right cataract surgery History of repair of left rotator cuff History of tubal ligation Family History Father No problems noted. Mother Liver cancer Social History Housing: House Alcohol intake: never Patient Tobacco Use Status: Former Tobacco user Tobacco use type: Cigarette Years Smoked: 16 years old 6 months only e-Cigarette/Vaping Use: Never Used Second Hand Smoke Exposure: No service: No Current occupational status: retired Cognitive needs: No Hearing needs: No Vision needs: Yes Questionnaire PHQ-9 Over the last 2 weeks, how often have you been bothered by any of the following problems? 1. Little interest or pleasure in doing things: not at all 2. Feeling down, depressed, or hopeless: not at all 3. Trouble falling or staying asleep, or sleeping too much: not at all 4. Feeling tired or having little energy: not at all 5. Poor appetite or overeating: not at all 6. Feeling bad about yourself - or that you are a failure or have let yourself or your family down: not at all 7. Trouble concentrating on things, such as reading the newspaper or watching television: not at all 8. Moving or speaking so slowly that other people could have noticed. Or the opposite - being so fidgety or restless that you have been moving around a lot more than usual: not at all 9. Thoughts that you would be better off or of hurting yourself in some way: not at all Total score: 0 Depression Screening Interpretation: Negative Depression Screening Done: Yes Source: Developed by Drs. James Bolton, Kimberly Myers, Grabiel Kolb and colleagues, with an educational ravinder from [employer]. Thrive Questionnaire Date Thrive assessed: 02/04/24 I am a: Patient What is your living situation today?: I have a steady place to live Within the past 12 months, did the food you bought not last and you didn't have the money to get more?: Never true Within the past 12 months, did you worry whether your food would run out before you got money to buy more?: Never true Do you have trouble paying for medicines?: No Do you have trouble getting transportation to medical appointments?: No Do you have trouble paying your heating and electricity bill?: No Do you have trouble taking care of your child, family member or friend?: No Do you have trouble with day-to-day activities such as bathing, preparing meals, shopping, managing finances, etc.?: No Are you currently unemployed and looking for a job?: No Are you interested in more education?: No Currently or been in a relationship where the following occur: no concerns reported THRIVE Score: 0 AUDIT C Alcohol Use Questionnaire (AUDIT-C) 1. How often do you have a drink containing alcohol?: Never Total Score: 0 PATRICIO-7 AMB Questionnaire PATRICIO-7 Date PATRICIO - 7 assessed: 02/04/24 Feeling nervous, anxious, or on edge: 0 = Not at all Not being able to stop or control worryin = Not at all Worrying too much about different things: 0 = Not at all Trouble relaxin = Not at all Being so restless that it is hard to sit still: 0 = Not at all Becoming easily annoyed or irritable: 0 = Not at all Feeling afraid as if something awful might happen: 0 = Not at all Total PATRICIO-7 score (0-4 normal; 5-9 mild; 10-14 moderate; 15-21 severe): 0 Source: Developed by Drs. James Bolton, Kimberly Myers, Grabiel Kolb and colleagues, with an educational ravinder from [employer]. Physical exam (Primary Care) Vital Signs: Last Vital Signs Pulse 101 H 02/04/24 08:59 BP 140/70 H 02/04/24 08:59 Pulse Ox 96 02/04/24 08:59 Oxygen Delivery Method Room Air 02/04/24 08:59 BMI result Body Mass Index 39.0 Tobacco/Smoking Status: Tobacco use Status Tobacco use date assessed 02/04/24 02/04/24 09:00 Patient Tobacco Use Status Former Tobacco user 02/04/24 09:00 Tobacco use type Cigarette 02/04/24 09:00 e-Cigarette/Vaping Use Never Used 02/04/24 09:00 PHQ-9: PHQ-9 Score PHQ-9: Total score 0 02/04/24 09:00 Depression Screening Interpretation: Negative Thrive Assessment: Date of Thrive Assessment Date Thrive assessed 02/04/24 02/04/24 09:00 Currently or been in a relationship where the following occur: no concerns reported Const General: alert; No acute distress Eyes Conjunctivae: conjunctivae normal Resp Auscultation: clear to auscultation bilaterally Cardio Rate: regular rate Rhythm: regular rhythm GI Inspection: Yes normal to inspection Extrem General: Yes normal to inspection and No edema Assessment and Plan Assessment & Plan (1) Obesity (BMI 30-39.9): Code(s): E66.9 - Obesity, unspecified Plan: Diet and exercise (2) Hypercholesterolemia: Code(s): E78.00 - Pure hypercholesterolemia, unspecified Plan: Avoid fried foods, chicken skin, eggs, butter margarine, pastries and meat. Be it pork or beef they have a lot of cholesterol LDL goal of less than 130 and triglyceride of less than 150. On atorvastatin 10 mg once a day June 2023 last blood (3) Asthma: Code(s): J45.909 - Unspecified asthma, uncomplicated Qualifiers: Asthma severity: mild Asthma persistence: intermittent Asthma complication type: uncomplicated Qualified Code(s): J45.20 - Mild intermittent asthma, uncomplicated Plan: Continue with the inhaler (4) Hypertension: Code(s): I10 - Essential (primary) hypertension Qualifiers: Hypertension type: essential hypertension Qualified Code(s): I10 - Essential (primary) hypertension Plan: Continue with blood pressure medication. Decrease salt intake and exercise on lisinopril 40 mg once a day (5) Impaired fasting blood sugar: Code(s): R73.01 - Impaired fasting glucose Plan: Decrease the amount of carbohydrate intake, pasta, bread, rice and potatoes are all sugar and that is aside from all the sweet stuff, remember that fruits are good but they are Sweet also. (6) Knee osteoarthritis: Code(s): M17.9 - Osteoarthritis of knee, unspecified Medications: New diclofenac sodium 75 mg PO DAILY 90 tabs 1RF M17.9 - Osteoarthritis of knee, unspecified Refilled hydrochlorothiazide 12.5 mg PO DAILY 90 tabs 1RF I10 - Essential (primary) hypertension Coding Level of Care Code Est Pt Level 4 (56643) Diagnoses Obesity (BMI 30-39.9) E66.9 Hypercholesterolemia E78.00 Mild intermittent asthma without complication J45.20 Asthma severity: mild Asthma persistence: intermittent Asthma complication type: uncomplicated Essential hypertension I10 Hypertension type: essential hypertension Impaired fasting blood sugar R73.01 Knee osteoarthritis M17.9
[2024-02-04 08:59] VITALS: BP 140/70; PULSE 101; O2SAT 96; BMI 39.0
== END 2024-02-04 09:56 | disposition home or self-care (01) ==
PROVIDERS: PCP Internal Medicine; Visit Provider Internal Medicine
DX: E78.00 Pure hypercholesterolemia, unspecified (principal); J45.20 Mild intermittent asthma, uncomplicated; Z68.39 Body mass index [BMI] 39.0-39.9, adult; E66.9 Obesity, unspecified; I10 Essential (primary) hypertension; R73.01 Impaired fasting glucose; M17.9 Osteoarthritis of knee, unspecified
CPT/HCPCS: 99214

== ENCOUNTER 2024-05-13 10:47 | Emergency (ER) | payer MEDICARE, OTHER, SELFPAY ==
[2024-05-13] VITALS (7 sets, daily range): BP systolic 158–201; BP diastolic 74–89; PULSE 69–97; RESP 16–20; TEMP 36.2–37.1; O2SAT 96–98; BMI 40.8
--- NOTE | ~2024-05-13 | CT_ITS ---
EXAMINATION: CT HEAD WITHOUT CONTRAST CLINICAL INFORMATION: Lightheaded, hypertension, rule out bleed COMPARISON: CT head 06/30/2017 TECHNIQUE: Contiguous axial imaging was performed from the skull base to vertex without intravenous administration of contrast. This CT examination was performed using dose optimization techniques as appropriate, variously including the following: *Automated exposure control *Adjustment of mA and/or kV according to patient size (this includes techniques or standardized protocols for targeted exams where dose is matched to indication/reason for exam; i.e. extremities or head) *Use of iterative reconstruction technique DLP: 657 mGy-cm FINDINGS: There is no evidence of acute intracranial hemorrhage or edematous territorial infarction. No abnormal mass effect or midline shift is seen. Fang to white matter differentiation is well preserved. No extra-axial fluid collections are identified. The ventricles are normal in size. No abnormal attenuation in the brain parenchyma. No acute calvarial fracture.. Bilateral basal ganglia mineralization. Paranasal sinuses and mastoid air cells are well-aerated. CT/CT head/brain wo IV con IMPRESSION: No CT evidence of acute intracranial hemorrhage or edematous territorial infarction.
--- NOTE | ~2024-05-13 | XR_ITS ---
EXAMINATION: XR chest 2V CLINICAL INFORMATION: Reason for Exam elevated bp COMPARISON: 2016 TECHNIQUE: XR chest 2V, 2 Views Lungs and [place]: Sacculation of right hemidiaphragm and increased AP diameter suggesting air trapping disease COPD. Mild diffuse increased interstitial marking and peribronchial cuffing might be underlying small airway disease or mild interstitial disease. There is no dense focal consolidation pneumonia. Pleura: Normal. Costophrenic angles are sharp. No pneumothorax. Heart: The heart is normal in size. Mediastinum: The mediastinum is within normal limits.. Bones: Skeletal structures included are normal for patient's age. XR/XR chest 2V IMPRESSION: 1. Air trapping disease COPD. 2. Mild diffuse increased interstitial marking and peribronchial cuffing might be underlying small airway disease or mild interstitial disease. 3. No dense focal consolidation pneumonia.
--- NOTE | 2024-05-13 11:14 | ED.GENADULT ---
HPI - General Adult General Chief complaint: General Medical Stated complaint: high blood pressure 197/97 Time Seen by Provider: 05/13/24 11:58 Source: patient and family () Mode of arrival: ambulatory Limitations: no limitations History of Present Illness ED Provider: DR. Jaeger HPI narrative: 78-year-old female with history of hypertension patient is compliant with her regular medication lisinopril 40 mg daily and hydrochlorothiazide 12.5 daily, patient lately has been feeling lightheadedness, checked her blood pressure found to be high for the patient baseline. Has been noticing increased shortness of breath with exertion, no PND. Patient was chronic lower extremity swelling without worsening. No CP, no blurry vision, no headache, no SOB the ED, no weakness, no numbness. Related Data Home Medications ?Medication ?Instructions ?Recorded ?Confirmed albuterol sulfate 0.63 mg/3 mL 0.63 mg inhalation Q4-6H PRN 08/22/20 07/15/23 solution for nebulization halobetasol propionate 0.05 % 1 appl topical DAILY 07/15/23 07/15/23 topical cream hydrocortisone 2.5 % topical cream 1 appl topical TID PRN 07/15/23 07/15/23 Previous Rx's ?Medication ?Instructions ?Recorded nystatin 100,000 unit/gram topical 1 appl topical BID #60 grams 12/25/22 powder lisinopril 40 mg tablet 40 mg PO DAILY #90 tabs 06/01/23 albuterol sulfate 90 mcg/actuation 2 puff inhalation Q4-6H PRN 07/15/23 aerosol inhaler bronchospasm #8.5 grams atorvastatin 10 mg tablet 10 mg PO DAILY #90 tabs 07/15/23 mometasone 220 mcg/actuation(120 1 inh inhalation DAILY 90 days #3 01/20/24 doses)breath activated powder ea inhaler (Asmanex Twisthaler) diclofenac sodium 75 mg 75 mg PO DAILY #90 tabs 02/04/24 tablet,delayed release hydrochlorothiazide 12.5 mg tablet 12.5 mg PO DAILY #90 tabs 02/04/24 amlodipine 5 mg tablet 5 mg PO DAILY #30 tabs 05/13/24 Allergies Allergy/AdvReac Type Severity Reaction Status Date / Time No Known Allergies Allergy Verified 05/13/24 11:16 Review of Systems Review of Systems: All other systems are reviewed and are negative Constitutional: Reports as per HPI and Reports no additional constitutional complaints Eyes: Reports as per HPI and Reports no additional eye complaints Reports system reviewed and no additional complaints, except as documented Cardiovascular: Reports as per HPI and Reports no additional cardiovascular complaints Respiratory: Reports as per HPI and Reports no additional respiratory complaints Gastrointestinal: Reports as per HPI and Reports no additional gastrointestinal complaints Genitourinary: Reports no additional female genitourinary complaints Musculoskeletal: Reports no additional musculoskeletal complaints Skin/Breast: Reports system reviewed and no additional complaints, except as docu Psychiatric: Reports no additional psychiatric complaints Endocrine: Reports no additional endocrine complaints Hematologic/Lymphatic: Reports no additional hematologic/lymphatic complaints Allergic/Immunologic: Reports no additional allergic/immunologic complaints Reports system reviewed and no additional complaints, except as documented and Reports Abnormal speech present [facility] Past Medical History Medical History Breast lump on right side at 6 o'clock position Post-menopausal Screening for diabetes mellitus Colon cancer screening Hypertension Obesity (BMI 30-39.9) Degenerative disc disease, lumbar Osteopenia Hypercholesterolemia Asthma Surgical History History of total right hip replacement History of right cataract surgery History of repair of left rotator cuff History of tubal ligation Family History Family History Father No problems noted. Mother Liver cancer Social History Social History Housing: House Alcohol intake: former Patient Tobacco Use Status: Former Tobacco user Tobacco use type: Cigarette Years Smoked: 16 years old 6 months only Smoked in Last 30 Days: No e-Cigarette/Vaping Use: Never Used Second Hand Smoke Exposure: No Use of substances other than those prescribed or required for medical reasons: No Advance Directives: No Do you have a plan to hurt others: No Plan service: No Current occupational status: retired Cognitive needs: No Hearing needs: No Vision needs: Yes Physical Exam ED Vital Signs: Vital Signs - 24 hr 05/13/24 11:15 05/13/24 12:07 05/13/24 14:05 Temperature 97.2 F Pulse Rate 87 82 69 Respiratory Rate 18 20 16 Blood Pressure 201/89 H 188/85 H 180/89 H Pulse Oximetry 96 96 97 Oxygen Delivery Method Room Air Room Air Room Air 05/13/24 14:57 05/13/24 15:06 Temperature Pulse Rate 79 Respiratory Rate 18 Blood Pressure 192/88 H 192/88 H Pulse Oximetry 97 Oxygen Delivery Method Room Air BMI result Body Mass Index 40.8 Vital signs have been reviewed and appear to be correct. Blood pressure elevated. Heart rate normal. Respiratory rate normal. Temperature normal. Oxygen saturation normal. Appearance: Alert. Oriented X3. No acute distress. Head: Normal external exam. Normocephalic. Atraumatic. No [place] signs noted. No raccoon eyes noted Eyes: PERRLA. EOMI. Conjunctiva and sclera normal. Eyelids normal. ENT: TM's Normal. Pharynx normal. Uvula midline. Moist mucous membranes. No trismus noted. No drooling noted. No muffled voice noted. Neck: Normal inspection. Neck supple. FROM. No adenopathy. Thyroid Normal. No meningeal signs. No neck mass noted. CVS: Normal heart rate and rhythm. Heart sound normal. No murmurs noted. Pulses normal throughout. Respiratory: No respiratory distress. Painless inspiration. Breath sounds normal. No wheezes/rales/rhonchi noted. Chest nontender. No accessory muscle usage noted or decreased air movement noted. Abdomen: Soft and nontender. Bowel sounds normal in all 4 quadrants. No distention noted. No organomegaly noted. No visible injury noted. Back: No CVA tenderness. Full range of motion noted. Skin: Skin warm and dry. Normal skin color. Normal skin turgor. No rashes/lesions/lacerations noted. Extremities: No lower extremity edema. Extremities exhibit normal range of motion. Extremities nontender. Neuro: Oriented X 3. Cranial nerve exam: II-XII are grossly intact No motor deficit. No sensory deficit. Reflexes normal. Course Course Course Narrative: This is a Rapid Medical Examination (RME) performed by Ryan Curran PA-C in triage. Full HPI, ROS, assessment and treatment plan per primary provider in the Main ED. 78 yo feamle hx of HTN, hypercholesterolemia, and asthma presents to the ED today for eval of elevated blood pressure x1 week. reports checking her bp at [facility] this morning. the first read was 197/110 and the second read was 191/103. admits to feeling light headed, short of breath, headache, dizziness, weakness. no chest pain. has been taking HCTZ 12.5 QD (night) and lisinopril 40mg QD (morning) as prescribed. no missed doses. took her lisinopril this morning. well appearing in triage. RRR. hypertensive. Plan: labs, ekg, cxr Reevaluation(s) Reevaluation #1: Known history of essential hypertension came in for lightheadedness and elevated blood pressure, unremarkable workup in the emergency department. Patient responded well to amlodipine in the ED will add amlodipine 5 mg daily to her current medication and follow-up with her PCP for further evaluation. Time: 15:15 Medications Administered Discontinued Medications Generic Name Dose Route Start Last Admin Trade Name Freq PRN Reason Stop Dose Admin Amlodipine Besylate 10 mg 05/13/24 15:02 05/13/24 15:06 Amlodipine Besylate 10 Mg Tablet PO 05/13/24 15:03 10 mg ONCE ONE Administration Protocol Medical Decision Making Differential Diagnosis Differential Diagnoses: The differential diagnosis associated with the presentation includes (Essential hypertension, hypertensive urgency, hypertensive emergency, electrolyte derangement ACS, intracranial bleed, electrolyte derangement, severe anemia.) Admission/Observation Consideration of admission/observation: Escalation of care including admission/observation considered Lab Data MDM Lab Attestation statement: I reviewed the patient's lab results. 05/13/24 12:12 05/13/24 12:12 Labs: Lab Results 05/13/24 Range/Units 12:12 WBC 7.5 (4.8-10.8) X10*3/uL RBC 4.69 (4.20-5.50) X10*6/uL Hgb 14.0 (12.0-16.0) g/dl Hct 43.7 (37.0-47.0) % MCV 93.2 (80.0-98.0) fL MCH 29.9 (27.0-33.0) pg MCHC 32.0 (31.0-35.0) g/dl RDW 13.2 (11.0-16.0) % Plt Count 199 (160-400) X10*3/uL MPV 12.3 (9.4-12.3) fL Immature Gran % (Auto) 0.3 (0.0-0.4) % Neut % (Auto) 64.5 (45-73) % Lymph % (Auto) 21.5 (20-40) % [place] % (Auto) 10.5 (2-11) % Eos % (Auto) 2.8 (0-4) % Baso % (Auto) 0.4 (0-2) % Lymph # (Auto) 1.6 (1.2-4.9) X10*3/uL [place] # (Auto) 0.8 (0.1-1.2) X10*3/uL Eos # (Auto) 0.2 (0.0-0.4) X10*3/uL Baso # (Auto) 0.0 (0.0-0.2) X10*3/uL Abs Immat Gran (auto) 0.02 (0.00-0.03) X10*3/uL Absolute Neuts (auto) 4.9 (2.0-8.3) x10*3/uL Absolute Nucleated RBC 0.000 (0.0-0.012) X10*3/uL Nucleated RBC % (auto) 0.0 (0.0-0.2) /100WBC Sodium 143 (135-145) mmol/L Potassium 4.0 (3.3-5.1) mmol/L Chloride 107 (96-108) mmol/L Carbon Dioxide 26 (22-29) mmol/L Anion Gap 14 (12-20) BUN 16 (9-16) mg/dL Creatinine 0.86 (0.5-1.4) mg/dL Estim Creat Clear Calc 60.0 Estimated GFR > 60 Random Glucose 94 (60-115) mg/dL Calcium 9.2 (8.4-10.2) mg/dL Magnesium 2.0 (1.6-2.6) mg/dL Total Bilirubin 0.7 (0.0-1.0) mg/dL AST 37 H (5-31) U/L ALT 47 H (0-31) U/L Alkaline Phosphatase 77 (39-117) U/L Troponin I High Sens 2.9 (<3.5-17.0) ng/L Total Protein 7.3 (6.5-8.0) g/dL Albumin 4.1 (3.5-5.0) g/dL Lipase 26 (8-78) U/L Independent Interpretation I performed an independent interpretation of an: Plain X-Ray (Chest:1. Air trapping disease COPD. 2. Mild diffuse increased interstitial marking and peribronchial cuffing might be underlying small airway disease or mild interstitial disease. 3. No dense focal consolidation pneumonia. ) and CT Scan (Head: No acute intracranial pathology.) Radiology Impression Discussion of test interpretation with radiology: I have reviewed the radiologist's reading. Chronic Conditions Patient?s care impacted by: Hypertension Discharge Plan Discharge Clinical Impression: Essential hypertension Patient Disposition: Home, Self-Care Instructions: Hypertension (ED) Prescriptions: New amlodipine 5 mg tablet 5 mg PO DAILY Qty: 30 0RF No Action lisinopril 40 mg tablet 40 mg PO DAILY Qty: 90 3RF Asmanex Twisthaler 220 mcg/ actuation (120) aerosol powdr breath activated 1 inh inhalation DAILY 90 Days Qty: 3 3RF albuterol sulfate 0.63 mg/3 mL solution for nebulization 0.63 mg inhalation Q4-6H PRN nystatin 100,000 unit/gram powder 1 appl topical BID Qty: 60 11RF hydrocortisone 2.5 % cream 1 appl topical TID PRN halobetasol propionate 0.05 % cream 1 appl topical DAILY albuterol sulfate 90 mcg/actuation HFA aerosol inhaler 2 puff inhalation Q4-6H PRN (Reason: bronchospasm) Qty: 8.5 0RF atorvastatin 10 mg tablet 10 mg PO DAILY Qty: 90 2RF hydrochlorothiazide 12.5 mg tablet 12.5 mg PO DAILY Qty: 90 1RF diclofenac sodium 75 mg tablet,delayed release (DR/EC) 75 mg PO DAILY Qty: 90 1RF Referrals: Po,Compa Smyth MD [Primary Care Provider] - Print Language: German
--- NOTE | 2024-05-13 11:19 | ECG_ITS ---
Test Reason : SOB Blood Pressure : / mmHG Vent. Rate : 075 BPM Atrial Rate : 075 BPM P-R Int : 154 ms QRS Dur : 078 ms QT Int : 374 ms P-R-T Axes : 057 011 051 degrees QTc Int : 417 ms Normal sinus rhythm Normal ECG No previous ECGs available Referred By: Ruth Curran Electronically Signed By:KATIE LUI MD
[2024-05-13 12:17] LABS: MANUAL DIFF FLAG NO
[2024-05-13 12:19] LABS: Basophils Percent Auto 0.4 % (0-2); Eosinophils Absolute Auto 0.2 X10*3/uL (0.0-0.4); Eosinophils Percent Auto 2.8 % (0-4); Hematocrit 43.7 % (37.0-47.0); Imm Gran Abs Auto 0.02 X10*3/uL (0.00-0.03); Imm Gran Pct Auto 0.3 % (0.0-0.4); Lymphocytes Absolute Auto 1.6 X10*3/uL (1.2-4.9); Lymphocytes Percent Auto 21.5 % (20-40); Mean Corpuscular Hemoglobin 29.9 pg (27.0-33.0); Mean Corpuscular Volume 93.2 fL (80.0-98.0); Mean Platelet Volume 12.3 fL (9.4-12.3); Monocytes Absolute Auto 0.8 X10*3/uL (0.1-1.2); Monocytes Percent Auto 10.5 % (2-11); Neutrophils Absolute Auto 4.9 x10*3/uL (2.0-8.3); Neutrophils Percent Auto 64.5 % (45-73); Platelet Count 199 X10*3/uL (160-400); Red Blood Count 4.69 X10*6/uL (4.20-5.50); Red Cell Distribution Width 13.2 % (11.0-16.0); White Blood Count 7.5 X10*3/uL (4.8-10.8)
[2024-05-13 12:43] LABS: Alanine Aminotransferase 47 U/L (0-31); Albumin Level 4.1 g/dL (3.5-5.0); Alkaline Phosphatase 77 U/L (39-117); Anion Gap 14 (12-20); Aspartate Amino Transferase 37 U/L (5-31); Bilirubin Total 0.7 mg/dL (0.0-1.0); Blood Urea Nitrogen 16 mg/dL (9-16); Calcium 9.2 mg/dL (8.4-10.2); Carbon Dioxide 26 mmol/L (22-29); Chloride 107 mmol/L (96-108); Estimated Glomerular Filt Rate > 60; Glucose Random 94 mg/dL (60-115); Lipase 26 U/L (8-78); Sodium 143 mmol/L (135-145); Total Protein 7.3 g/dL (6.5-8.0)
[2024-05-13 12:50] LABS: Troponin-I High Sensitivity 2.9 ng/L (<3.5-17.0)
[2024-05-13] MEDS: amLODIPine Besylate 10 MG TABLET PO (15:06)
== END 2024-05-13 15:49 | disposition home or self-care (01) ==
PROVIDERS: Physician Assistant Medical; Emergency Provider Emergency Medicine; PCP Internal Medicine
DX: I10 Essential (primary) hypertension (principal); E78.00 Pure hypercholesterolemia, unspecified; R06.02 Shortness of breath; J45.909 Unspecified asthma, uncomplicated; Z87.891 Personal history of nicotine dependence; Z79.02 Long term (current) use of antithrombotics/antiplatelets; Z79.899 Other long term (current) drug therapy
CPT/HCPCS: 36415; 70450; 71046; 80053; 83690; 83735; 84484; 85025; 93005; 99284

== ENCOUNTER → 2024-05-13 11:19 | Outpatient (BNV) | payer MEDICARE, OTHER, SELFPAY | PROVIDERS: Emergency Provider Emergency Medicine; PCP Internal Medicine; Visit Provider Internal Medicine Cardiovascular Disease | DX: R06.02 Shortness of breath (principal) | CPT/HCPCS: 93010 ==

== ENCOUNTER 2024-05-15 12:03 | Outpatient (AMB) | payer MEDICARE, OTHER, SELFPAY ==
[2024-05-15 12:05] VITALS: BP 152/82; PULSE 87; O2SAT 97; BMI 40.4
--- NOTE | 2024-05-15 12:05 | MHC.PC.OV ---
Vital Signs 05/15/24 12:05 Height 5 ft 2 in Weight 221 lb BMI 40.4 BP 152/82 H Blood Pressure Location Lt brachial Position Sitting Pulse 87 Pulse Source Pulse Oximeter Pulse Oximetry (%) 97 Oxygen Delivery Method Room Air Intake Visit Reasons: High BP Allergies No Known Allergies Allergy (Verified 05/15/24 12:06) Tobacco use date assessed: 02/04/24 Fall risk assessment: No Falls in past year Last assessed Fall Risk: 05/15/24 Dental Screening Dental Screen Date: 02/04/24 HPI High BP HPI Details 78-year-old morbidly obese female with hypercholesterolemia hypertension asthma impaired glucose tolerance and knee osteoarthritis last seen in 02/02/2024. Review of the notes had an ER visit in May 13 feeling lightheaded and blood pressure was found to be high patient was started on amlodipine. taking amlodipine and feels dizzy, PFSH Medical History Breast lump on right side at 6 o'clock position Post-menopausal Screening for diabetes mellitus Colon cancer screening Hypertension Obesity (BMI 30-39.9) Degenerative disc disease, lumbar Osteopenia Hypercholesterolemia Asthma Surgical History History of total right hip replacement History of right cataract surgery History of repair of left rotator cuff History of tubal ligation Family History Father No problems noted. Mother Liver cancer Social History Housing: House Alcohol intake: former Patient Tobacco Use Status: Former Tobacco user Tobacco use type: Cigarette Years Smoked: 16 years old 6 months only e-Cigarette/Vaping Use: Never Used Second Hand Smoke Exposure: No service: No Current occupational status: retired Cognitive needs: No Hearing needs: No Vision needs: Yes Questionnaire PHQ-9 Over the last 2 weeks, how often have you been bothered by any of the following problems? 1. Little interest or pleasure in doing things: not at all 2. Feeling down, depressed, or hopeless: not at all 3. Trouble falling or staying asleep, or sleeping too much: not at all 4. Feeling tired or having little energy: not at all 5. Poor appetite or overeating: not at all 6. Feeling bad about yourself - or that you are a failure or have let yourself or your family down: not at all 7. Trouble concentrating on things, such as reading the newspaper or watching television: not at all 8. Moving or speaking so slowly that other people could have noticed. Or the opposite - being so fidgety or restless that you have been moving around a lot more than usual: not at all 9. Thoughts that you would be better off or of hurting yourself in some way: not at all Total score: 0 Depression Screening Interpretation: Negative Depression Screening Done: Yes Source: Developed by Drs. James Bolton, Kimberly Myers, Grabiel Kolb and colleagues, with an educational ravinder from [employer]. Thrive Questionnaire Date Thrive assessed: 02/04/24 AUDIT C Alcohol Use Questionnaire (AUDIT-C) 1. How often do you have a drink containing alcohol?: Never Total Score: 0 PATRICIO-7 AMB Questionnaire PATRICIO-7 Date PATRICIO - 7 assessed: 02/04/24 Source: Developed by Drs. James Bolton, Kimberly Myers, Grabiel Kolb and colleagues, with an educational ravinder from [employer]. Physical exam (Primary Care) Vital Signs: Last Vital Signs Pulse 87 05/15/24 12:05 BP 152/82 H 05/15/24 12:05 Pulse Ox 97 05/15/24 12:05 Oxygen Delivery Method Room Air 05/15/24 12:05 BMI result Body Mass Index 40.4 Tobacco/Smoking Status: Tobacco use Status Tobacco use date assessed 02/04/24 05/15/24 12:10 Patient Tobacco Use Status Former Tobacco user 05/15/24 12:10 Tobacco use type Cigarette 05/15/24 12:10 e-Cigarette/Vaping Use Never Used 05/15/24 12:10 PHQ-9: PHQ-9 Score PHQ-9: Total score 0 05/15/24 13:13 Depression Screening Interpretation: Negative Thrive Assessment: Date of Thrive Assessment Date Thrive assessed 02/04/24 05/15/24 12:10 Const General: alert; No acute distress Eyes Conjunctivae: conjunctivae normal Resp Auscultation: clear to auscultation bilaterally Cardio Rate: regular rate Rhythm: regular rhythm GI Inspection: Yes normal to inspection Extrem General: Yes normal to inspection and No edema Assessment and Plan Assessment & Plan (1) Morbid obesity: Code(s): E66.01 - Morbid (severe) obesity due to excess calories Plan: Diet and exercise (2) Hypertension: Code(s): I10 - Essential (primary) hypertension Qualifiers: Hypertension type: essential hypertension Qualified Code(s): I10 - Essential (primary) hypertension Plan: continue with HCTz and lisinopril added amlodipine and option taking 1/2 tab or q pm due to dizziness- opted to take at night (3) LFT elevation: Code(s): R79.89 - Other specified abnormal findings of blood chemistry Plan: Requested for ultrasound of the abdomen and retesting of the liver function test as well as hepatitis testing Orders: Orders Comprehensive Met. Panel Today R7.89 - Other specified abnormal findings of blood chemistry US abdomen complete Today R7.89 - Other specified abnormal findings of blood chemistry Hepatitis B,C Profile Today R7 - Other specified abnormal findings of blood chemistry Coding Level of Care Code Est Pt Level 4 (57164) Diagnoses Morbid obesity E66.01 Essential hypertension I10 Hypertension type: essential hypertension LFT elevation R79.89
== END 2024-05-15 15:42 | disposition home or self-care (01) ==
PROVIDERS: PCP Internal Medicine; Visit Provider Internal Medicine
DX: I10 Essential (primary) hypertension (principal); E66.01 Morbid (severe) obesity due to excess calories; Z68.41 Body mass index [BMI] 40.0-44.9, adult; R79.89 Other specified abnormal findings of blood chemistry
CPT/HCPCS: 99214

== ENCOUNTER 2024-05-24 07:29 | Outpatient (REF) | payer MEDICARE, SELFPAY ==
--- NOTE | ~2024-05-24 | US_ITS ---
EXAMINATION: US ABDOMEN COMPLETE CLINICAL INFORMATION: Other specified abnormal findings of blood chemistry. COMPARISON: Ultrasound abdomen complete 06/15/2019. TECHNIQUE: Real-time imaging of the abdominal viscera. Limited visualization due to bowel gas. FINDINGS: PANCREAS: Limited visualization of pancreatic tail and head. Imaged portion of pancreatic body is unremarkable. ABDOMINAL AORTA: Limited visualization. Imaged portions of abdominal aorta are within normal limits in caliber. INFERIOR VENA CAVA: Visualized portions are normal. LIVER: Increased hepatic parenchymal heterogeneity and echogenicity could be associated with hepatocellular disease/hepatic steatosis and substantially limits visualization. Correlation with liver function tests and clinical exam recommended to determine further management. GALLBLADDER: Limited visualization of the gallbladder due to bowel gas and shadowing from adjacent structures. Cholelithiasis. Small gallbladder polyps are difficult to evaluate due to limited visualization. 1.4 x 1.1 x 1.1 cm possible mass versus nonmobile calculus in the gallbladder fundus is difficult to assess due to the limited visualization and was not characterized on prior exam. Borderline gallbladder wall thickening of 0.3 cm. COMMON BILE DUCT: Normal in caliber measuring 0.4 cm in diameter. RIGHT KIDNEY: No hydronephrosis. No renal calculi. Limited visualization. The kidney measures 10.3 cm in maximum dimension. LEFT KIDNEY: No hydronephrosis. No renal calculi. Limited visualization. The kidney measures 11.3 cm in maximum dimension. SPLEEN: Normal. The spleen measures 9.7 cm in maximum dimension. FREE FLUID: None. US/US abdomen complete IMPRESSION: 1. Increased hepatic parenchymal heterogeneity and echogenicity could be associated with hepatocellular disease/hepatic steatosis and substantially limits visualization. Correlation with liver function tests and clinical exam recommended to determine further management. 2. A 1.4 cm possible mass versus nonmobile gallstone in the gallbladder fundus is difficult to assess due to the limited visualization and was not characterized on prior exam. Cholelithiasis. Small gallbladder polyps are difficult to evaluate due to limited visualization. Borderline gallbladder wall thickening of 0.3 cm. MRI/MRCP recommended for further evaluation.
== END 2024-05-24 07:30 | disposition home or self-care (01) ==
LOC: HO.US 07:29
PROVIDERS: PCP Internal Medicine; Visit Provider Internal Medicine
DX: R79.89 Other specified abnormal findings of blood chemistry (principal)
CPT/HCPCS: 76700

== ENCOUNTER 2024-06-01 10:17 | Outpatient (AMB) | payer MEDICARE, SELFPAY ==
[2024-06-01 10:34] VITALS: BP 148/88; PULSE 83; O2SAT 96; BMI 40.2
--- NOTE | 2024-06-01 10:34 | A.OFFPC_ITS ---
Vital Signs 06/01/24 10:34 Height 5 ft 2 in Weight 220 lb BMI 40.2 BP 148/88 H Blood Pressure Location Lt brachial Position Sitting Pulse 83 Pulse Source Pulse Oximeter Pulse Oximetry (%) 96 Oxygen Delivery Method Room Air Intake Visit Reasons: OA Allergies No Known Allergies Allergy (Verified 06/01/24 10:34) Medication List - Last Reconciled 06/01/24 by Compa Zimmerman MD albuterol sulfate 0.63 mg inhalation Q4-6H PRN albuterol sulfate 90 mcg/actuation 2 puffs inhalation Q4-6H PRN amlodipine 5 mg PO DAILY atorvastatin 10 mg PO DAILY diclofenac sodium 75 mg PO DAILY hydrochlorothiazide 25 mg PO DAILY hydrocortisone 2.5% 1 appl topical TID PRN lisinopril 40 mg PO DAILY mometasone (Asmanex Twisthaler) 1 inh inhalation DAILY 90 days triamcinolone acetonide 0.025% 1 appl topical BID Tobacco use date assessed: 02/04/24 Fall risk assessment: No Falls in past year Last assessed Fall Risk: 06/01/24 Dental Screening Dental Screen Date: 02/04/24 HPI OA HPI Details 78-year-old morbidly obese female with h ypertension coming in for follow-up. Last seen in May 2024. Patient's colonoscopy was done in 2005 mammogram is up-to-date October bone density is up-to-date in 07/04/2022. Reviewed the medication thoroughly with the patient was asking for meloxicam. Clarified with the patient that she was taking meloxicam with diclofenac. Patient can not be doing this and explained to them the reason and so discontinue meloxicam. Patient's blood pressure remains to be elevated [facility] Medical History (Updated 06/01/24 @ 11:28 by Compa Zimmerman MD) Obesity (BMI 30-39.9) Breast lump on right side at 6 o'clock position Post-menopausal Screening for diabetes mellitus Colon cancer screening Hypertension Degenerative disc disease, lumbar Osteopenia Hypercholesterolemia Asthma Surgical History History of total right hip replacement History of right cataract surgery History of repair of left rotator cuff History of tubal ligation Family History Father No problems noted. Mother Liver cancer Social History Housing: House Alcohol intake: former Patient Tobacco Use Status: Former Tobacco user Tobacco use type: Cigarette Years Smoked: 16 years old 6 months only e-Cigarette/Vaping Use: Never Used Second Hand Smoke Exposure: No service: No Current occupational status: retired Cognitive needs: No Hearing needs: No Vision needs: Yes Questionnaire PHQ-9 Over the last 2 weeks, how often have you been bothered by any of the following problems? 1. Little interest or pleasure in doing things: not at all 2. Feeling down, depressed, or hopeless: not at all 3. Trouble falling or staying asleep, or sleeping too much: not at all 4. Feeling tired or having little energy: not at all 5. Poor appetite or overeating: not at all 6. Feeling bad about yourself - or that you are a failure or have let yourself or your family down: not at all 7. Trouble concentrating on things, such as reading the newspaper or watching television: not at all 8. Moving or speaking so slowly that other people could have noticed. Or the opposite - being so fidgety or restless that you have been moving around a lot more than usual: not at all 9. Thoughts that you would be better off or of hurting yourself in some way: not at all Total score: 0 Depression Screening Interpretation: Negative Depression Screening Done: Yes Source: Developed by Drs. James Bolton, Grabiel Maurer and colleagues, with an educational ravinder from [employer]. Thrive Questionnaire Date Thrive assessed: 02/04/24 AUDIT C Alcohol Use Questionnaire (AUDIT-C) 1. How often do you have a drink containing alcohol?: Never Total Score: 0 PATRICIO-7 AMB Questionnaire PATRICIO-7 Date PATRICIO - 7 assessed: 02/04/24 Source: Developed by Drs. James Bolton, Kimberly Myers, Grabiel Kolb and colleagues, with an educational ravinder from [employer]. Physical exam (Primary Care) Vital Signs: Last Vital Signs Pulse 83 06/01/24 10:34 BP 148/88 H 06/01/24 10:34 Pulse Ox 96 06/01/24 10:34 Oxygen Delivery Method Room Air 06/01/24 10:34 BMI result Body Mass Index 40.2 Tobacco/Smoking Status: Tobacco use Status Tobacco use date assessed 02/04/24 06/01/24 10:36 Patient Tobacco Use Status Former Tobacco user 06/01/24 10:36 Tobacco use type Cigarette 06/01/24 10:36 e-Cigarette/Vaping Use Never Used 06/01/24 10:36 PHQ-9: PHQ-9 Score PHQ-9: Total score 0 06/01/24 10:36 Depression Screening Interpretation: Negative Thrive Assessment: Date of Thrive Assessment Date Thrive assessed 02/04/24 06/01/24 10:36 Const General: alert; No acute distress Eyes Conjunctivae: conjunctivae normal Resp Auscultation: clear to auscultation bilaterally Cardio Rate: regular rate Rhythm: regular rhythm GI Inspection: Yes normal to inspection Extrem General: Yes normal to inspection and No edema Assessment and Plan Assessment & Plan (1) Morbid obesity: Code(s): E66.01 - Morbid (severe) obesity due to excess calories Plan: Diet and exercise (2) LFT elevation: Code(s): R79.89 - Other specified abnormal findings of blood chemistry Plan: Ultrasound done and awaiting results. Patient was advised to get blood work also but this was not done. Reminded patient to take it (3) Osteoporosis: Comment: 06/2022 MM/XR DEXA axial skeleton IMPRESSION: 1. DIAGNOSIS: Osteoporosis based on the lowest T-score value of -2.9 in the total femur applying World Health Organization criteria. Code(s): M81.0 - Age-related osteoporosis without current pathological fracture Plan: Bone density due in 06/2024 (4) Impaired fasting blood sugar: Code(s): R73.01 - Impaired fasting glucose Plan: Decrease the amount of carbohydrate intake, pasta, bread, rice and potatoes are all sugar and that is aside from all the sweet stuff, remember that fruits are good but they are Sweet also. (5) Hypertension: Code(s): I10 - Essential (primary) hypertension Qualifiers: Hypertension type: essential hypertension Qualified Code(s): I10 - Essential (primary) hypertension Plan: Continue with blood pressure medication. Decrease salt intake and exercise on amlodipine 5 mg once a day hydrochlorothiazide 12.5 mg once a day and lisinopril 40 mg once a day advised an increase in hydrochlorothiazide as the patient has some mild swelling from amlodipine. (6) Hypercholesterolemia: Code(s): E78.00 - Pure hypercholesterolemia, unspecified Plan: Avoid fried foods, chicken skin, eggs, butter margarine, pastries and meat. Be it pork or beef they have a lot of cholesterol LDL goal of less than 130 and triglyceride of less than 150 (7) Knee osteoarthritis: Code(s): M17.9 - Osteoarthritis of knee, unspecified Plan: Narcotic pain meds: Is being prescribed with the understanding that these medications are potentially addictive and should be used only when absolutely necessary and must always be secured. Any remaining pills should be safely disposed off appropriately. Patient is advised that narcotics can impaired judgment and one should not drive or operate heavy machinery while taking these medications. Never share these medications with anybody and do not leave them unattended. They will not be replaced under any circumstances. Clarification done on medication for pain. Meloxicam and diclofenac are both anti- inflammatory which can cause stomach problems as well as renal problem. Stop meloxicam and continue with diclofenac as needed. Orders: Orders Free T4 (Free Thyroxine) Today E78.00 - Pure hypercholesterolemia, unspecified Hemoglobin A1c Today E78.00 - Pure hypercholesterolemia, unspecified Complete Blood Count Auto Diff Today E78.00 - Pure hypercholesterolemia, unspecified Comprehensive Met. Panel Today E78.00 - Pure hypercholesterolemia, unspecified Lipid Panel Today E78.00 - Pure hypercholesterolemia, unspecified Thyroid Stimulating Hormone Today E78.00 - Pure hypercholesterolemia, unspecified Vitamin B12 and Folate Today E78.00 - Pure hypercholesterolemia, unspecified Vitamin D 25-OH Total Today E78.00 - Pure hypercholesterolemia, unspecified Medications: New triamcinolone acetonide 0.025% 1 appl topical BID 80 grams 0RF E78.00 - Pure hypercholesterolemia, unspecified Changed From hydrochlorothiazide 12.5 mg PO DAILY 90 tabs 1RF I10 - Essential (primary) hypertension To hydrochlorothiazide 25 mg PO DAILY 90 tabs 2RF I10 - Essential (primary) hypertension From diclofenac sodium 75 mg PO DAILY 90 tabs 1RF M17.9 - Osteoarthritis of knee, unspecified To diclofenac sodium 75 mg PO BID 90 tabs 1RF M17.9 - Osteoarthritis of knee, unspecified Refilled amlodipine 5 mg PO DAILY 30 tabs 0RF E78.00 - Pure hypercholesterolemia, unspecified mometasone (Asmanex Twisthaler) 1 inh inhalation DAILY 90 days 3 ea 3RF J45.20 - Mild intermittent asthma, uncomplicated Coding Level of Care Code Est Pt Level 4 (48357) Diagnoses Morbid obesity E66.01 LFT elevation R79.89 Osteoporosis M81.0 Impaired fasting blood sugar R73.01 Essential hypertension I10 Hypertension type: essential hypertension Hypercholesterolemia E78.00 Knee osteoarthritis M17.9
== END 2024-06-01 12:03 | disposition home or self-care (01) ==
PROVIDERS: PCP Internal Medicine; Visit Provider Internal Medicine
DX: M81.0 Age-related osteoporosis without current pathological fracture (principal); E66.01 Morbid (severe) obesity due to excess calories; Z68.41 Body mass index [BMI] 40.0-44.9, adult; R79.89 Other specified abnormal findings of blood chemistry; R73.01 Impaired fasting glucose; I10 Essential (primary) hypertension; E78.00 Pure hypercholesterolemia, unspecified; M17.0 Bilateral primary osteoarthritis of knee
CPT/HCPCS: 99214

== ENCOUNTER 2024-06-30 08:25 | Outpatient (AMB) | payer MEDICARE, SELFPAY ==
[2024-06-30 08:26] VITALS: BP 148/64; PULSE 95; O2SAT 94; BMI 40.6
--- NOTE | 2024-06-30 08:26 | MHC.PC.OV ---
Vital Signs 06/30/24 08:26 Height 5 ft 2 in Weight 222 lb 0.4 oz BMI 40.6 BP 148/64 H Blood Pressure Location Lt brachial Position Sitting Pulse 95 Pulse Source Pulse Oximeter Pulse Oximetry (%) 94 Oxygen Delivery Method Room Air Intake Visit Reasons: Discuss Wegovy prescription Prepress Stripper Required: No Allergies No Known Allergies Allergy (Verified 06/30/24 08:27) Tobacco use date assessed: 02/04/24 Fall risk assessment: No Falls in past year Last assessed Fall Risk: 06/30/24 Dental Screening Dental Screen Date: 02/04/24 HPI Discuss Wegovy prescription HPI Details 78-year-old morbidly obese female with impaired glucose tolerance osteoporosis hypertension hypercholesterolemia knee osteoarthritis coming in for follow-up. Last seen in May 2024. Patient is up-to-date with mammogram and due for bone density. COUNTS INCLUDE 234 BEDS AT [facility] Medical History (Updated 06/30/24 @ 09:07 by Compa Zimmerman MD) Obesity (BMI 30-39.9) Breast lump on right side at 6 o'clock position Post-menopausal Screening for diabetes mellitus Colon cancer screening Hypertension Degenerative disc disease, lumbar Osteopenia Hypercholesterolemia Asthma Surgical History History of total right hip replacement History of right cataract surgery History of repair of left rotator cuff History of tubal ligation Family History Father No problems noted. Mother Liver cancer Social History Housing: House Alcohol intake: former Patient Tobacco Use Status: Former Tobacco user Tobacco use type: Cigarette Years Smoked: 16 years old 6 months only e-Cigarette/Vaping Use: Never Used Second Hand Smoke Exposure: No service: No Current occupational status: retired Cognitive needs: No Hearing needs: No Vision needs: Yes Questionnaire Thrive Questionnaire Date Thrive assessed: 02/04/24 AUDIT C Alcohol Use Questionnaire (AUDIT-C) 1. How often do you have a drink containing alcohol?: Never 3. How often do you have six or more drinks on one occasion?: Never Total Score: 0 PATRICIO-7 AMB Questionnaire PATRICIO-7 Date PATRICIO - 7 assessed: 02/04/24 Source: Developed by Drs. James Bolton, Kimberly Myers, Grabiel Kolb and colleagues, with an educational ravinder from [employer]. Physical exam (Primary Care) Vital Signs: Last Vital Signs Pulse 95 06/30/24 08:26 BP 148/64 H 06/30/24 08:26 Pulse Ox 94 06/30/24 08:26 Oxygen Delivery Method Room Air 06/30/24 08:26 BMI result Body Mass Index 40.6 Tobacco/Smoking Status: Tobacco use Status Tobacco use date assessed 02/04/24 06/30/24 08:27 Patient Tobacco Use Status Former Tobacco user 06/30/24 08:27 Tobacco use type Cigarette 06/30/24 08:27 e-Cigarette/Vaping Use Never Used 06/30/24 08:27 Thrive Assessment: Date of Thrive Assessment Date Thrive assessed 02/04/24 06/30/24 08:27 Const General: alert; No acute distress Eyes Conjunctivae: conjunctivae normal Resp Auscultation: clear to auscultation bilaterally Cardio Rate: regular rate Rhythm: regular rhythm GI Inspection: Yes normal to inspection Extrem General: Yes normal to inspection and No edema Assessment and Plan Assessment & Plan (1) Morbid obesity: Code(s): E66.01 - Morbid (severe) obesity due to excess calories Plan: Diet and exercise patient is interested in the new medication for weight loss and discussed about contraindications for it which is thyroid cancer. (2) Gallbladder polyp: Comment: May 2024 Increased hepatic parenchymal heterogeneity and echogenicity could be associated with hepatocellular disease/hepatic steatosis and substantially limits visualization. Correlation with liver function tests and clinical exam recommended to determine further management. 2. A 1.4 cm possible mass versus nonmobile gallstone in the gallbladder fundus is difficult to assess due to the limited visualization and was not characterized on prior exam. Cholelithiasis. Small gallbladder polyps are difficult to evaluate due to limited visualization. Borderline gallbladder wall thickening of 0.3 cm. MRI/MRCP recommended for further evaluation. Code(s): K82.4 - Cholesterolosis of gallbladder Plan: MRI requested. (3) Hepatic steatosis: Code(s): K76.0 - Fatty (change of) liver, not elsewhere classified (4) Cholelithiasis: Code(s): K80.20 - Calculus of gallbladder without cholecystitis without obstruction Orders: Orders MR abdomen wo con Today K82.4 - Cholesterolosis of gallbladder Medications: New semaglutide (weight loss) (Pa) administer weeks 1 through 4 of therapy 0.25 mg (0.5 mL) subcut QWEEK 2 mL 1RF E66.01 - Morbid (severe) obesity due to excess calories Coding Level of Care Code Est Pt Level 4 (88414) Diagnoses Morbid obesity E66.01 Gallbladder polyp K82.4 Hepatic steatosis K76.0 Cholelithiasis K80.20
== END 2024-06-30 11:17 | disposition home or self-care (01) ==
PROVIDERS: PCP Internal Medicine; Visit Provider Internal Medicine
DX: K82.4 Cholesterolosis of gallbladder (principal); E66.01 Morbid (severe) obesity due to excess calories; Z68.41 Body mass index [BMI] 40.0-44.9, adult; K76.0 Fatty (change of) liver, not elsewhere classified; K80.20 Calculus of gallbladder without cholecystitis without obstruction
CPT/HCPCS: 99214

== ENCOUNTER 2024-07-23 09:23 | Outpatient (REF) | payer MEDICARE, SELFPAY ==
--- NOTE | ~2024-07-23 | MR_ITS ---
EXAMINATION: MR ABDOMEN WITHOUT CONTRAST CLINICAL INFORMATION: Calculus in the gallbladder without cholecystitis COMPARISON: Abdominal ultrasound 04/24/2024 TECHNIQUE: MRI of the abdomen without contrast was obtained using routine sequences. Heavily T2 weighted MRCP sequences were also obtained. FINDINGS: LUNG BASES: Unremarkable. ABDOMINAL AND PELVIC WALL: Unremarkable. LIVER AND BILIARY TREE: Few T2 bright hepatic cysts. Patchy heterogeneous loss of signal on opposed phase imaging compatible with hepatic steatosis. GALLBLADDER: Cholelithiasis and gallbladder sludge without evidence of acute cholecystitis, with one of the gallstones corresponding to the previously seen lesion on prior ultrasound. Lack of intravenous contrast limits evaluation however within limitations no appreciable gallbladder mass. PANCREAS: Few pancreatic cysts measuring up to 1.1 cm the pancreatic head. No pancreatic duct dilatation. SPLEEN: Unremarkable. ADRENAL GLANDS: Unremarkable. KIDNEYS AND URETERS: Bosniak 1 Renal cysts, no follow-up imaging recommended. GASTROINTESTINAL TRACT: Small hiatal hernia. VASCULAR: Unremarkable. LYMPH NODES/PERITONEUM: No lymphadenopathy. FREE FLUID: None. OSSEOUS STRUCTURES: Unremarkable. OTHER: A 1.7 cm T2 bright lesion in the pelvis, incompletely evaluated as only imaged on the large [id number] T2-weighted coronal sequences. MR/MR MRCP IMPRESSION: 1. Cholelithiasis and gallbladder sludge without evidence of acute cholecystitis, with one of the gallstones corresponding to the previously seen lesion on prior ultrasound. Lack of intravenous contrast limits evaluation however within limitations no appreciable gallbladder mass. 2. Patchy heterogeneous loss of signal on opposed phase imaging compatible with hepatic steatosis. 3. A 1.7 cm T2 bright lesion in the pelvis, incompletely evaluated as only imaged on the large [id number] T2-weighted coronal sequences, possibly a lymphangioma or lymphocele. Contrast enhanced CT abdomen and pelvis could be considered for further delineation given limited evaluation. Electronically signed by: Camille Dupont MD 08/07/2024 11:36 AM EDT
== END 2024-07-23 09:24 | disposition home or self-care (01) ==
LOC: HO.MRI 09:23
PROVIDERS: PCP Internal Medicine
DX: K82.4 Cholesterolosis of gallbladder (principal)
CPT/HCPCS: 74181

== ENCOUNTER 2024-10-10 07:55 | Outpatient (REF) | payer MEDICARE, SELFPAY ==
[2024-10-10 08:24] LABS: MANUAL DIFF FLAG NO
[2024-10-10 09:02] LABS: Basophils Percent Auto 0.5 % (0-2); Eosinophils Absolute Auto 0.2 X10*3/uL (0.0-0.4); Eosinophils Percent Auto 2.3 % (0-4); Hematocrit 43.6 % (37.0-47.0); Hemoglobin 14.1 g/dl (12.0-16.0); Imm Gran Abs Auto 0.02 X10*3/uL (0.00-0.03); Imm Gran Pct Auto 0.3 % (0.0-0.4); Lymphocytes Absolute Auto 1.9 X10*3/uL (1.2-4.9); Mean Corpuscular HGB Conc 32.3 g/dl (31.0-35.0); Mean Corpuscular Hemoglobin 30.7 pg (27.0-33.0); Mean Corpuscular Volume 94.8 fL (80.0-98.0); Mean Platelet Volume 12.8 fL (9.4-12.3); Monocytes Absolute Auto 0.7 X10*3/uL (0.1-1.2); Monocytes Percent Auto 9.7 % (2-11); Neutrophils Absolute Auto 4.7 x10*3/uL (2.0-8.3); Neutrophils Percent Auto 62.2 % (45-73); Platelet Count 213 X10*3/uL (160-400); Red Cell Distribution Width 12.6 % (11.0-16.0); White Blood Count 7.5 X10*3/uL (4.8-10.8)
[2024-10-10 09:07] LABS: Estimated Average Glucose 114 mg/dL; Hemoglobin A1C 135.5526 umol/L; Hemoglobin A1c % 5.6 % (<6.0); Total Hemoglobin (HGBA1C) 3570.1172 umol/L
[2024-10-10 09:49] LABS: Alanine Aminotransferase 40 U/L (0-31); Albumin Level 4.1 g/dL (3.5-5.0); Alkaline Phosphatase 75 U/L (39-117); Anion Gap 13 (12-20); Aspartate Amino Transferase 31 U/L (5-31); Bilirubin Total 0.8 mg/dL (0.0-1.0); Blood Urea Nitrogen 21 mg/dL (9-16); Calcium 9.4 mg/dL (8.4-10.2); Carbon Dioxide 26 mmol/L (22-29); Chloride 104 mmol/L (96-108); Cholesterol 137 mg/dL (<200); Estimated Glomerular Filt Rate 46; Glucose Random 107 mg/dL (60-115); HDL Cholesterol 36 mg/dL (>40); LDL Cholesterol Calculated 86 mg/dL (<100); Potassium 4.4 mmol/L (3.3-5.1); Sodium 139 mmol/L (135-145); Total Protein 7.3 g/dL (6.5-8.0); Triglycerides 79 mg/dL (<150)
[2024-10-10 09:50] LABS: HBS Num1 33.87 mIU/mL (0-7.99); HBc Num1 0.13 S/CO (0.00-0.79); HBsAGNum1 0.48 S/CO (0.00-0.99); Hepatitis B Core Antibody Nonreactive (Nonreactive); Hepatitis B Surface Antigen Negative (Negative); ~HepC Num1 0.09 S/CO (0.00-0.79); ~Hepatitis B Surface Antibody REACTIVE (Nonreactive); ~Hepatitis C Antibody Nonreactive (Nonreactive)
[2024-10-10 10:00] LABS: Free T4 (Free Thyroxine) 1.22 ng/dL (0.71-1.85); Thyroid Stimulating Hormone 2.57 uIU/mL (0.32-4.0); Vitamin D 25-OH Total 15.8 ng/mL (>30)
[2024-10-10 10:05] LABS: Folate 11.6 ng/mL (> or = 4.0); Vitamin B12 300 pg/mL (200-900)
== END 2024-10-10 07:56 | disposition home or self-care (01) ==
LOC: HO.LAB 07:55
PROVIDERS: PCP Internal Medicine; Visit Provider Internal Medicine
DX: E78.00 Pure hypercholesterolemia, unspecified (principal); R79.89 Other specified abnormal findings of blood chemistry
CPT/HCPCS: 36415; 80053; 80061; 82306; 82607; 82746; 83036; 84439; 84443; 85025; 86704; 86706; 86803; 87340

== ENCOUNTER 2024-10-18 10:27 | Outpatient (AMB) | payer MEDICARE, SELFPAY ==
[2024-10-18 10:49] VITALS: BP 134/72; PULSE 83; O2SAT 95; BMI 37.5
--- NOTE | 2024-10-18 10:49 | A.OFFPC_ITS ---
Vital Signs 10/18/24 10:49 Height 5 ft 2 in Weight 205 lb BMI 37.5 BP 134/72 Blood Pressure Location Lt brachial Position Sitting Pulse 83 Pulse Source Pulse Oximeter Pulse Oximetry (%) 95 Oxygen Delivery Method Room Air Intake Visit Reasons: 3mth f/u Allergies No Known Allergies Allergy (Verified 10/18/24 10:49) Medication List - Last Reconciled 10/18/24 by Compa Zimmerman MD albuterol sulfate 0.63 mg inhalation Q4-6H PRN albuterol sulfate 90 mcg/actuation 2 puffs inhalation Q4-6H PRN atorvastatin 10 mg PO DAILY diclofenac sodium 75 mg PO BID famotidine (Pepcid) 20 mg PO DAILY [golo PO .after every meal] hydrochlorothiazide 25 mg PO DAILY hydrocortisone 2.5% 1 appl topical TID PRN lisinopril 40 mg PO DAILY mometasone (Asmanex Twisthaler) 1 inh inhalation DAILY 90 days triamcinolone acetonide 0.025% 1 appl topical BID Tobacco use date assessed: 10/18/24 Fall risk assessment: No Falls in past year Last assessed Fall Risk: 10/18/24 Dental Screening Dental Screen Date: 10/18/24 Did you have a dental visit in the last 12 months?: Yes Did you have a dental problem in the last 6 months where you did not have access to dental care?: No Was dental information given to patient?: Patient has dentist HPI 3mth f/u HPI Details The patient is a 79-year-old female presenting with multiple chronic health concerns including obesity, asthma, hypercholesterolemia, lumbar degenerative disc disease, essential hypertension, impaired glucose tolerance, osteoporosis, and hepatic steatosis. She was last seen in June 2024 and reports a weight loss of 17 pounds since that time. Her asthma history includes the use of a daily inhaler. Hypercholesterolemia is managed with atorvastatin. For lumbar degenerative disc disease and right knee osteoarthritis, conservative treatment with meloxicam and a hinge knee brace has been provided. A recent MRI of the abdomen showed cholelithiasis and hepatic steatosis, and a 1.7 cm pelvic lesion, potentially a lymphangioma or a lymphocele, was identified. The lesion is advised to be further evaluated with a contrast-enhanced CT of the abdomen. Her last colonoscopy was in 2005, and a mammogram is due. Blood work performed in September revealed an elevated blood sugar level, although hemoglobin A1c was normal, and liver function tests were elevated, consistent with her history. A low level of vitamin D was also noted.- Reports use of a daily inhaler for asthma management. - Reports previous use of weight managem ent aids due to obesity but has discontinued due to cost concerns. - Expresses ongoing concerns about weigh t loss, despite a 17-pound reduction in weight over the last three months. - Discusses intake of dietary supplement s, including a pill taken after meals, sourced online.- Musculoskeletal: Reports burping and feeling of stomach knots. - Gastrointestinal: Reports feelings of fullness after eating, stomach upset, diarrhea. - Muscular: Reports backache upon waking . [facility] Medical History (Updated 10/18/24 @ 15:53 by Compa Zimmerman MD) Obesity (BMI 30-39.9) Breast lump on right side at 6 o'clock position Post-menopausal Screening for diabetes mellitus Colon cancer screening Hypertension Degenerative disc disease, lumbar Osteopenia Hypercholesterolemia Asthma Surgical History History of total right hip replacement History of right cataract surgery History of repair of left rotator cuff History of tubal ligation Family History Father No problems noted. Mother Liver cancer Social History Housing: House Alcohol intake: former Patient Tobacco Use Status: Former Tobacco user Tobacco use type: Cigarette Years Smoked: 16 years old 6 months only e-Cigarette/Vaping Use: Never Used Second Hand Smoke Exposure: No service: No Current occupational status: retired Cognitive needs: No Hearing needs: No Vision needs: Yes Questionnaire PHQ-9 Over the last 2 weeks, how often have you been bothered by any of the following problems? 1. Little interest or pleasure in doing things: not at all 2. Feeling down, depressed, or hopeless: not at all 3. Trouble falling or staying asleep, or sleeping too much: not at all 4. Feeling tired or having little energy: not at all 5. Poor appetite or overeating: not at all 6. Feeling bad about yourself - or that you are a failure or have let yourself or your family down: not at all 7. Trouble concentrating on things, such as reading the newspaper or watching television: not at all 8. Moving or speaking so slowly that other people could have noticed. Or the opposite - being so fidgety or restless that you have been moving around a lot more than usual: not at all 9. Thoughts that you would be better off or of hurting yourself in some way: not at all Total score: 0 Depression Screening Interpretation: Negative Depression Screening Done: Yes Source: Developed by Drs. James Bolton, Kimberly Myers, Grabiel Kolb and colleagues, with an educational ravinder from [employer]. Thrive Questionnaire Date Thrive assessed: 10/18/24 I am a: Patient What is your living situation today?: I have a steady place to live Within the past 12 months, did the food you bought not last and you didn't have the money to get more?: Never true Within the past 12 months, did you worry whether your food would run out before you got money to buy more?: Never true Do you have trouble paying for medicines?: No Do you have trouble getting transportation to medical appointments?: No Do you have trouble paying your heating and electricity bill?: No Do you have trouble taking care of your child, family member or friend?: No Do you have trouble with day-to-day activities such as bathing, preparing meals, shopping, managing finances, etc.?: No Are you currently unemployed and looking for a job?: No Are you interested in more education?: No Currently or been in a relationship where the following occur: No concerns reported THRIVE Score: 0 AUDIT C Alcohol Use Questionnaire (AUDIT-C) 1. How often do you have a drink containing alcohol?: Never 3. How often do you have six or more drinks on one occasion?: Never Total Score: 0 PATRICIO-7 AMB Questionnaire PATRICIO-7 Date PATRICIO - 7 assessed: 10/18/24 Feeling nervous, anxious, or on edge: 0 = Not at all Not being able to stop or control worryin = Not at all Worrying too much about different things: 0 = Not at all Trouble relaxin = Not at all Being so restless that it is hard to sit still: 0 = Not at all Becoming easily annoyed or irritable: 0 = Not at all Feeling afraid as if something awful might happen: 0 = Not at all Total PATRICIO-7 score (0-4 normal; 5-9 mild; 10-14 moderate; 15-21 severe): 0 Source: Developed by Drs. James Bolton, Kimberly Myers, Grabiel Kolb and colleagues, with an educational ravinder from [employer]. Physical exam (Primary Care) Vital Signs: Last Vital Signs Pulse 83 10/18/24 10:49 BP 134/72 10/18/24 10:49 Pulse Ox 95 10/18/24 10:49 Oxygen Delivery Method Room Air 10/18/24 10:49 BMI result Body Mass Index 37.5 Tobacco/Smoking Status: Tobacco use Status Tobacco use date assessed 10/18/24 10/18/24 10:50 Patient Tobacco Use Status Former Tobacco user 10/18/24 10:50 Tobacco use type Cigarette 10/18/24 10:50 e-Cigarette/Vaping Use Never Used 10/18/24 10:50 PHQ-9: PHQ-9 Score PHQ-9: Total score 0 10/18/24 12:01 Depression Screening Interpretation: Negative Thrive Assessment: Date of Thrive Assessment Date Thrive assessed 10/18/24 10/18/24 10:50 Currently or been in a relationship where the following occur: No concerns reported Const General: alert; No acute distress Eyes Conjunctivae: conjunctivae normal Resp Auscultation: clear to auscultation bilaterally Cardio Rate: regular rate Rhythm: regular rhythm GI Inspection: Yes normal to inspection Extrem General: Yes normal to inspection and No edema Office Procedures Flu Questionnaire Does the patient have a severe egg allergy?: No Does the patient have severe life threatening allergies?: No Does the patient have a fever or illness today?: No Has the patient ever had Guillain-[place] Syndrome?: No Has the patient ever had any past reaction to a flu shot?: No Immunizations Fluarix Triv [id number] (PF) 45 mcg (15 mcg x 3)/0.5 mL IM syringe Performing Provider: Compa Zimmerman MD [facility] Administered by: Juju Holland CMA on 10/18/24 11:49 Dose Route Admin Location Dispensed Lot Number Expiration Date [facility] E Learning Coordinator 0.5 mL IM Left Deltoid 0.5 mL [id number] 05/14/25 [id number] [employer] VIS Given Date VIS Provided VIS Publication Date 10/18/24 Single Vaccine 21 Eligibility Eligibility Date Funding Source Not [facility] Eligible 10/18/24 Private Coding Level of Care Code Est Pt Level 4 (82195) Complex EM visit Add On G2211 Diagnoses Renal insufficiency N28.9 Impaired fasting blood sugar R73.01 Age related osteoporosis, unspecified pathological fracture presence M81.0 Osteoporosis type: age-related Presence of current pathological fracture: unspecified Calculus of gallbladder without cholecystitis without obstruction K80.20 Cholelithiasis location: gallbladder Cholecystitis presence: without cholecystitis Biliary obstruction: without biliary obstruction Hepatic steatosis K76.0 Essential hypertension I10 Hypertension type: essential hypertension Assessment & Plan Assessment & Plan (1) Renal insufficiency: Code(s): N28.9 - Disorder of kidney and ureter, unspecified Category: Medical Plan: Concern about the NSAIDs being taken continue to monitor and use diclofenac only as needed (2) Impaired fasting blood sugar: Code(s): R73.01 - Impaired fasting glucose Category: Medical Plan: Decrease the amount of carbohydrate intake, pasta, bread, rice and potatoes are all sugar and that is aside from all the sweet stuff, remember that fruits are good but they are Sweet also. (3) Osteoporosis: Comment: 06/2022 MM/XR DEXA axial skeleton IMPRESSION: 1. DIAGNOSIS: Osteoporosis based on the lowest T-score value of -2.9 in the total femur applying World Health Organization criteria. Code(s): M81.0 - Age-related osteoporosis without current pathological fracture Category: Medical Qualifiers: Osteoporosis type: age-related Presence of current pathological fracture: unspecified Qualified Code(s): M81.0 - Age-related osteoporosis without current pathological fracture Plan: Discussed about calcium and vitamin-D and declined any new medication (4) Cholelithiasis: Code(s): K80.20 - Calculus of gallbladder without cholecystitis without obstruction Category: Medical Qualifiers: Cholelithiasis location: gallbladder Cholecystitis presence: without cholecystitis Biliary obstruction: without biliary obstruction Qualified Code(s): K80.20 - Calculus of gallbladder without cholecystitis without obstruction Plan: Discussed about low-fat diet and exercise (5) Hepatic steatosis: Code(s): K76.0 - Fatty (change of) liver, not elsewhere classified Category: Medical Plan: Discussed about low-fat diet and exercise (6) Hypertension: Code(s): I10 - Essential (primary) hypertension Category: Medical Qualifiers: Hypertension type: essential hypertension Qualified Code(s): I10 - Essential (primary) hypertension Plan: Continue with blood pressure medication. Decrease salt intake and exercise on lisinopril 40 mg once a day and hydrochlorothiazide 25 mg once a day Plan - Labs: Blood count within normal limits, electrolytes normal, creatinine at 1.13, elevated blood sugar, normal hemoglobin A1c, elevated liver function, LDL at 86, low vitamin D, normal folic acid, and thyroid levels. - Tests and Diagnostics: MRI abdomen showing cholelithiasis and hepatic steatosis, 1.7 cm lesion in the pelvis, possible lymphangioma or lymphocele; advised for contrast-enhanced CT abdomen for further evaluation.- Obesity: Discussed dietary modifications; continue monitoring weight. - Asthma: Continue daily inhaler use; ensure proper inhaler technique. - Hypercholesterolemia: Continue atorvastatin; monitor lipid levels. - Lumbar Degenerative Disc Disease: Monitor and manage pain with conservative measures. - Essential Hypertension: Continue current antihypertensive regimen; monitor blood pressure. - Impaired Glucose Tolerance: Advise on controlling carbohydrate intake. - Osteoporosis: Order bone density test. - Hepatic Steatosis: Advise lifestyle modifications; continue to monitor liver function. - Right Knee Osteoarthritis: Recommend conservative treatment including meloxicam and knee brace. - Cholelithiasis: Monitor for symptoms; surgical intervention not needed unless symptomatic. - Orders: Orders Hemoglobin A1c 3 Months M81.0 - Age-related osteoporosis without current pathological fracture Influenza [id number] Immunization Today Z23 - Encounter for immunization XR DEXA axial skeleton Today M81.0 - Age-related osteoporosis without current pathological fracture Comprehensive Met. Panel 3 Months M81.0 - Age-related osteoporosis without current pathological fracture Medications: New cholecalciferol (vitamin D3) 50 mcg PO DAILY 90 caps 3RF 90 days E55.9 - Vitamin D deficiency, unspecified, M81.0 - Age-related osteoporosis without current pathological fracture Refilled atorvastatin 10 mg PO DAILY 90 tabs 2RF E78.00 - Pure hypercholesterolemia, unspecified
== END 2024-10-18 12:24 | disposition home or self-care (01) ==
PROVIDERS: PCP Internal Medicine; Visit Provider Internal Medicine
DX: N28.9 Disorder of kidney and ureter, unspecified (principal); R73.01 Impaired fasting glucose; M81.0 Age-related osteoporosis without current pathological fracture; K80.20 Calculus of gallbladder without cholecystitis without obstruction; K76.0 Fatty (change of) liver, not elsewhere classified; I10 Essential (primary) hypertension; Z23 Encounter for immunization

== ENCOUNTER → 2024-10-18 10:27 | Outpatient (BNVA) | payer MEDICARE, SELFPAY | PROVIDERS: PCP Internal Medicine; Visit Provider Internal Medicine | DX: Z23 Encounter for immunization (principal); N28.9 Disorder of kidney and ureter, unspecified; R73.01 Impaired fasting glucose; M81.0 Age-related osteoporosis without current pathological fracture; K80.20 Calculus of gallbladder without cholecystitis without obstruction; I10 Essential (primary) hypertension; K76.0 Fatty (change of) liver, not elsewhere classified | CPT/HCPCS: 90471; 90656; 96127; 99212 ==

== ENCOUNTER 2024-11-22 13:09 | Outpatient (AMB) | payer MEDICARE, SELFPAY ==
[2024-11-22 13:13] VITALS: BP 130/68; PULSE 92; O2SAT 95; BMI 38.4
--- NOTE | 2024-11-22 13:13 | MHC.PC.OV ---
Vital Signs 11/22/24 13:13 Height 5 ft 2 in Weight 210 lb BMI 38.4 BP 130/68 Blood Pressure Location Lt brachial Position Sitting Pulse 92 Pulse Source Pulse Oximeter Pulse Oximetry (%) 95 Oxygen Delivery Method Room Air Intake Visit Reasons: Med Review OK gabriel Alfonso Allergies No Known Allergies Allergy (Verified 11/22/24 13:14) Tobacco use date assessed: 11/22/24 Fall risk assessment: No Falls in past year Last assessed Fall Risk: 11/22/24 Dental Screening Dental Screen Date: 11/22/24 Did you have a dental visit in the last 12 months?: Yes Did you have a dental problem in the last 6 months where you did not have access to dental care?: No Was dental information given to patient?: Patient has dentist HPI Med Review CHARITY Alfonso HPI Details The patient is a 79-year-old female presenting with knee pain. The knee pain worsened after discontinuing a previous medication, which was advised due to impaired kidney function noted in recent blood work. The kidney numbers are mildly elevated but still within normal range. The patient reports that she was previously taking hydrocodone at 5 mg, managing the pain effectively without issues; however, she had to increase the dosage on vacation, leading to no complications. Additionally, the patient is dealing with a chronic dry cough lasting three weeks, but she denies fever or other significant symptoms. A suspicion of an allergy-related cause is present given the seasonal changes and increased nasal congestion. The patient has a bone density assessment scheduled for the end of the month. [facility] Medical History (Updated 11/22/24 @ 13:42 by Compa Zimmerman MD) Obesity (BMI 30-39.9) Breast lump on right side at 6 o'clock position Post-menopausal Screening for diabetes mellitus Colon cancer screening Hypertension Degenerative disc disease, lumbar Osteopenia Hypercholesterolemia Asthma Surgical History History of total right hip replacement History of right cataract surgery History of repair of left rotator cuff History of tubal ligation Family History Father No problems noted. Mother Liver cancer Social History Housing: House Alcohol intake: former Patient Tobacco Use Status: Former Tobacco user Tobacco use type: Cigarette Years Smoked: 16 years old 6 months only e-Cigarette/Vaping Use: Never Used Second Hand Smoke Exposure: No service: No Current occupational status: retired Cognitive needs: No Hearing needs: No Vision needs: Yes Questionnaire PHQ-9 Over the last 2 weeks, how often have you been bothered by any of the following problems? 1. Little interest or pleasure in doing things: not at all 2. Feeling down, depressed, or hopeless: not at all 3. Trouble falling or staying asleep, or sleeping too much: not at all 4. Feeling tired or having little energy: not at all 5. Poor appetite or overeating: not at all 6. Feeling bad about yourself - or that you are a failure or have let yourself or your family down: not at all 7. Trouble concentrating on things, such as reading the newspaper or watching television: not at all 8. Moving or speaking so slowly that other people could have noticed. Or the opposite - being so fidgety or restless that you have been moving around a lot more than usual: not at all 9. Thoughts that you would be better off or of hurting yourself in some way: not at all Total score: 0 Depression Screening Interpretation: Negative Depression Screening Done: Yes Source: Developed by Drs. James Bolton, Kimberly Myers, Grabiel Kolb and colleagues, with an educational ravinder from [employer]. Thrive Questionnaire Date Thrive assessed: 11/22/24 I am a: Patient What is your living situation today?: I have a steady place to live Within the past 12 months, did the food you bought not last and you didn't have the money to get more?: Never true Within the past 12 months, did you worry whether your food would run out before you got money to buy more?: Never true Do you have trouble paying for medicines?: No Do you have trouble getting transportation to medical appointments?: No Do you have trouble paying your heating and electricity bill?: No Do you have trouble taking care of your child, family member or friend?: No Do you have trouble with day-to-day activities such as bathing, preparing meals, shopping, managing finances, etc.?: No Are you currently unemployed and looking for a job?: No Are you interested in more education?: No Currently or been in a relationship where the following occur: No concerns reported THRIVE Score: 0 AUDIT C Alcohol Use Questionnaire (AUDIT-C) 1. How often do you have a drink containing alcohol?: Never 3. How often do you have six or more drinks on one occasion?: Never Total Score: 0 PATRICIO-7 AMB Questionnaire PATRICIO-7 Date PATRICIO - 7 assessed: 11/22/24 Feeling nervous, anxious, or on edge: 0 = Not at all Not being able to stop or control worryin = Not at all Worrying too much about different things: 0 = Not at all Trouble relaxin = Not at all Being so restless that it is hard to sit still: 0 = Not at all Becoming easily annoyed or irritable: 0 = Not at all Feeling afraid as if something awful might happen: 0 = Not at all Total PATRICIO-7 score (0-4 normal; 5-9 mild; 10-14 moderate; 15-21 severe): 0 Source: Developed by Drs. James Bolton, Kimberly Myers, Grabiel Kolb and colleagues, with an educational ravinder from [employer]. Physical exam (Primary Care) Vital Signs: Last Vital Signs Pulse 92 11/22/24 13:13 BP 130/68 11/22/24 13:13 Pulse Ox 95 11/22/24 13:13 Oxygen Delivery Method Room Air 11/22/24 13:13 BMI result Body Mass Index 38.4 Tobacco/Smoking Status: Tobacco use Status Tobacco use date assessed 11/22/24 11/22/24 13:18 Patient Tobacco Use Status Former Tobacco user 11/22/24 13:18 Tobacco use type Cigarette 11/22/24 13:18 e-Cigarette/Vaping Use Never Used 11/22/24 13:18 PHQ-9: PHQ-9 Score PHQ-9: Total score 0 11/22/24 13:18 Depression Screening Interpretation: Negative Thrive Assessment: Date of Thrive Assessment Date Thrive assessed 11/22/24 11/22/24 13:18 Currently or been in a relationship where the following occur: No concerns reported Const General: alert; No acute distress Eyes Conjunctivae: conjunctivae normal Resp Auscultation: clear to auscultation bilaterally Cardio Rate: regular rate Rhythm: regular rhythm GI Inspection: Yes normal to inspection Extrem General: Yes normal to inspection and No edema Coding Level of Care Code Est Pt Level 4 (66714) Diagnoses Age related osteoporosis, unspecified pathological fracture presence M81.0 Osteoporosis type: age-related Presence of current pathological fracture: unspecified Breast cancer screening by mammogram Z12.31 Degenerative disc disease, lumbar M51.36 Renal insufficiency N28.9 Assessment & Plan Assessment & Plan (1) Osteoporosis: Comment: 06/2022 MM/XR DEXA axial skeleton IMPRESSION: 1. DIAGNOSIS: Osteoporosis based on the lowest T-score value of -2.9 in the total femur applying World Health Organization criteria. Code(s): M81.0 - Age-related osteoporosis without current pathological fracture Category: Medical Qualifiers: Osteoporosis type: age-related Presence of current pathological fracture: unspecified Qualified Code(s): M81.0 - Age-related osteoporosis without current pathological fracture Plan: has a schedule (2) Breast cancer screening by mammogram: Code(s): Z. - Encounter for screening mammogram for malignant neoplasm of breast Category: Medical Plan: reminded (3) Degenerative disc disease, lumbar: Code(s): M51.36 - Other intervertebral disc degeneration, lumbar region Category: Medical (4) Renal insufficiency: Code(s): N28.9 - Disorder of kidney and ureter, unspecified Category: Medical Plan: keep well hydrated avoid NSAID Plan - For knee pain and medication management: Reintroduce hydrocodone for pain management, considering kidney function impairment. Prescribe 45 tablets with advice on safe use given its narcotic nature. - For impaired kidney function: Continue monitoring kidney function through regular blood tests to track progress post-medication adjustment. - For chronic cough: Consider allergy-induced etiology; recommend starting Claritin for potential nasal congestion and sinus issues. Evaluate through further testing if symptoms persist beyond four weeks, possibly involving a chest X-ray. - For osteoporosis: Schedule and complete the bone density scan to assess current state and adjust treatment as necessary. Medications: Refilled hydrocodone-acetaminophen 5-325 mg 1 tab PO BID PRN 45 tabs 0RF pain M51.36 - Other intervertebral disc degeneration, lumbar region
== END 2024-11-22 14:07 | disposition home or self-care (01) ==
PROVIDERS: PCP Internal Medicine; Visit Provider Internal Medicine
DX: M81.0 Age-related osteoporosis without current pathological fracture (principal); Z12.31 Encounter for screening mammogram for malignant neoplasm of breast; M51.369 Other intervertebral disc degeneration, lumbar region without mention of lumbar back pain or lower extremity pain; N28.9 Disorder of kidney and ureter, unspecified

== ENCOUNTER → 2024-11-22 13:09 | Outpatient (BNVA) | payer MEDICARE, SELFPAY | PROVIDERS: PCP Internal Medicine; Visit Provider Internal Medicine | DX: R05.3 Chronic cough (principal); M81.0 Age-related osteoporosis without current pathological fracture; M51.369 Other intervertebral disc degeneration, lumbar region without mention of lumbar back pain or lower extremity pain; N28.9 Disorder of kidney and ureter, unspecified | CPT/HCPCS: 99212 ==

== ENCOUNTER → 2024-11-30 13:00 | Outpatient (BNV) | payer MEDICARE, SELFPAY | PROVIDERS: PCP Internal Medicine; Visit Provider Radiology Diagnostic Radiology | DX: E28.39 Other primary ovarian failure (principal) | CPT/HCPCS: 77080 ==

== ENCOUNTER 2025-01-24 12:12 | Outpatient (AMB) | payer MEDICARE, SELFPAY ==
--- NOTE | 2025-01-24 12:19 | A.OFFPC_ITS ---
Vital Signs 01/24/25 12:35 Height 5 ft 2 in Weight 215 lb BMI 39.3 BP 140/62 H Blood Pressure Location Lt brachial Position Sitting Pulse 95 Pulse Source Pulse Oximeter Pulse Oximetry (%) 95 Oxygen Delivery Method Room Air Intake Visit Reasons: 3 MONTH F/U Allergies No Known Allergies Allergy (Verified 01/24/25 12:39) Medication List - Last Reconciled 01/24/25 by Compa Zimmerman MD albuterol sulfate 0.63 mg inhalation Q4-6H PRN albuterol sulfate 90 mcg/actuation 2 puffs inhalation Q4-6H PRN atorvastatin 10 mg PO DAILY cholecalciferol (vitamin D3) 50 mcg PO DAILY 90 days diclofenac sodium 75 mg PO BID famotidine (Pepcid) 20 mg PO DAILY hydrochlorothiazide 25 mg PO DAILY hydrocodone-acetaminophen 5-325 mg 1 tab PO BID PRN hydrocortisone 2.5% 1 appl topical TID PRN lisinopril 40 mg PO DAILY mometasone (Asmanex Twisthaler) 1 inh inhalation DAILY 90 days triamcinolone acetonide 0.025% 1 appl topical BID Tobacco use date assessed: 11/22/24 Fall risk assessment: No Falls in past year Last assessed Fall Risk: 01/24/25 Dental Screening Dental Screen Date: 11/22/24 FOR[facility]LY [facility], [facility] Medical History (Updated 01/24/25 @ 12:48 by Compa Zimmerman MD) Obesity (BMI 30-39.9) Osteoporosis Breast lump on right side at 6 o'clock position Post-menopausal Screening for diabetes mellitus Colon cancer screening Hypertension Degenerative disc disease, lumbar Osteopenia Hypercholesterolemia Asthma Surgical History History of total right hip replacement History of right cataract surgery History of repair of left rotator cuff History of tubal ligation Family History Father No problems noted. Mother Liver cancer Social History Housing: House Alcohol intake: former Patient Tobacco Use Status: Former Tobacco user Tobacco use type: Cigarette Years Smoked: 16 years old 6 months only e-Cigarette/Vaping Use: Never Used Second Hand Smoke Exposure: No service: No Current occupational status: retired Cognitive needs: No Hearing needs: No Vision needs: Yes Questionnaire PHQ-9 Over the last 2 weeks, how often have you been bothered by any of the following problems? 1. Little interest or pleasure in doing things: not at all 2. Feeling down, depressed, or hopeless: not at all 3. Trouble falling or staying asleep, or sleeping too much: not at all 4. Feeling tired or having little energy: not at all 5. Poor appetite or overeating: not at all 6. Feeling bad about yourself - or that you are a failure or have let yourself or your family down: not at all 7. Trouble concentrating on things, such as reading the newspaper or watching television: not at all 8. Moving or speaking so slowly that other people could have noticed. Or the opposite - being so fidgety or restless that you have been moving around a lot more than usual: not at all 9. Thoughts that you would be better off or of hurting yourself in some way: not at all Total score: 0 Depression Screening Interpretation: Negative Depression Screening Done: Yes Source: Developed by Drs. James Bolton, Kimberly Myers, Grabiel Kolb and colleagues, with an educational ravinder from [employer]. Thrive Questionnaire Date Thrive assessed: 11/22/24 AUDIT C Alcohol Use Questionnaire (AUDIT-C) 1. How often do you have a drink containing alcohol?: Never 3. How often do you have six or more drinks on one occasion?: Never Total Score: 0 PATRICIO-7 AMB Questionnaire PATRICIO-7 Date PATRICIO - 7 assessed: 11/22/24 Source: Developed by Drs. James Bolton, Kimberly Myers, Grabiel Kolb and colleagues, with an educational ravinder from [employer]. Physical exam (Primary Care) Vital Signs: Last Vital Signs Pulse 95 01/24/25 12:35 BP 140/62 H 01/24/25 12:35 Pulse Ox 95 01/24/25 12:35 Oxygen Delivery Method Room Air 01/24/25 12:35 BMI result Body Mass Index 39.3 Tobacco/Smoking Status: Tobacco use Status Tobacco use date assessed 11/22/24 01/24/25 12:19 Patient Tobacco Use Status Former Tobacco user 01/24/25 12:19 Tobacco use type Cigarette 01/24/25 12:19 e-Cigarette/Vaping Use Never Used 01/24/25 12:19 PHQ-9: PHQ-9 Score PHQ-9: Total score 0 01/24/25 12:56 Depression Screening Interpretation: Negative Thrive Assessment: Date of Thrive Assessment Date Thrive assessed 11/22/24 01/24/25 12:19 Const General: alert; No acute distress Eyes Conjunctivae: conjunctivae normal Resp Auscultation: clear to auscultation bilaterally Cardio Rate: regular rate Rhythm: regular rhythm GI Inspection: Yes normal to inspection Extrem General: Yes normal to inspection and No edema Coding Level of Care Code Est Pt Level 4 (88221) Diagnoses Hepatic steatosis K76.0 Hypercholesterolemia E78.00 Mild intermittent asthma without complication J45.20 Asthma complication type: uncomplicated Asthma persistence: intermittent Asthma severity: mild Essential hypertension I10 Hypertension type: essential hypertension Impaired fasting blood sugar R73.01 Colonoscopy refused Z53.20 Obesity (BMI 30-39.9) E66.9 Assessment & Plan Assessment & Plan (1) Hepatic steatosis: Code(s): K76.0 - Fatty (change of) liver, not elsewhere classified Category: Medical Plan: Low-fat diet and exercise (2) Hypercholesterolemia: Code(s): E78.00 - Pure hypercholesterolemia, unspecified Category: Medical Plan: Avoid fried foods, chicken skin, eggs, butter margarine, pastries and meat. Be it pork or beef they have a lot of cholesterol on atorvastatin 10 mg once a day (3) Asthma: Code(s): J45.909 - Unspecified asthma, uncomplicated Category: Medical Qualifiers: Asthma complication type: uncomplicated Asthma persistence: intermittent Asthma severity: mild Qualified Code(s): J45.20 - Mild intermittent asthma, uncomplicated Plan: Continue with the albuterol inhaler as needed and Asmanex (4) Hypertension: Code(s): I10 - Essential (primary) hypertension Category: Medical Qualifiers: Hypertension type: essential hypertension Qualified Code(s): I10 - Essential (primary) hypertension Plan: Continue with blood pressure medication. Decrease salt intake and exercise on lisinopril 40 mg once a day hydrochlorothiazide 25 mg once a day (5) Impaired fasting blood sugar: Code(s): R73.01 - Impaired fasting glucose Category: Medical Plan: Decrease the amount of carbohydrate intake, pasta, bread, rice and potatoes are all sugar and that is aside from all the sweet stuff, remember that fruits are good but they are Sweet also. (6) Colonoscopy refused: Code(s): Z53.20 - Procedure and treatment not carried out because of patient's decision for unspecified reasons Category: Medical (7) Obesity (BMI 30-39.9): Code(s): E66.9 - Obesity, unspecified Category: Medical Plan: Diet and exercise Plan History of Present Illness The patient is a 79-year-old female presenting for follow-up regarding her chronic conditions. She is being managed for hypercholesterolemia with atorvastatin and reports a recent LDL level of 86 mg/dL, with noted low vitamin D. Hypertension management includes lisinopril and hydrochlorothiazide. The patient uses albuterol for asthma, which she reports using daily. For renal insufficiency, her serum creatinine was 1.13 mg/dL, and GFR was 46.6 mL/min. She exhibits impaired glucose tolerance with an HbA1c of 5.6%. Previous use of diclofenac for pain has been discontinued due to renal concerns. The evaluation includes recent labs and health screenings. Health Maintenance - Mamogram overdue; last colonoscopy in 2005. - Bone density screening is up to date, showing normal density. - Vitamin D deficiency noted; supplementation recommended. - LDL cholesterol controlled with atorvastatin. Social History - Exercise and diet: Emphasis on low-fat diet and exercise discussed. - Medications: The patient ensures prescriptions are filled at [facility] pharmacy, with a preference for convenience in obtaining medications. Review of Systems - Respiratory: Reports daily use of albuterol inhaler. - Musculoskeletal: Indicates functional use of knee after injection; denied current use of NSAIDs for pain management. Physical Exam Results - Labs: Serum creatinine 1.13 mg/dL, GFR 46.6 mL/min, HbA1c 5.6%, LDL 86 mg/dL, Vitamin D low. - Imaging: Bone density screening indicates normal bone density. Plan The patient will continue atorvastatin, lisinopril, hydrochlorothiazide, and albuterol as needed. We will monitor her renal function closely and repeat labs mid-year to assess further decline. It is advised to avoid NSAIDs to protect renal health. The patient was encouraged to maintain her low-fat diet and exercise regimen to manage impaired glucose tolerance. We will ensure she receives her overdue mammogram. Vitamin D supplementation was recommended. Patient was informed and verbally consented to the use of an ambient scribe for clinic note documentation during this visit. Discussion Notes I discussed with the patient the importance of maintaining regular follow-up to monitor her chronic conditions and the management plans, especially given the decline in renal function. We addressed the risks of using NSAIDs and alternative pain management strategies. Scheduled screenings, including a mammogram, were emphasized, and the need for supplementation for her vitamin D deficiency was outlined. Emphasis on lifestyle modifications for glucose tolerance was reiterated, with plans to repeat lab evaluations to track renal health. Instructions were provided to refill prescriptions at the specified [facility] pharmacy. Patient Instructions - Continue taking atorvastatin, lisinopril, hydrochlorothiazide, and albuterol as prescribed. - Avoid the use of NSAIDs to protect kidney function. - Engage in regular exercise and maintain a low-fat diet. - Take vitamin D supplements as advised. - Attend your scheduled mammogram. - Expect to follow-up with labs mid-year to evaluate renal status. - Refill your prescriptions at [facility] in [place]. Medications: Refilled hydrochlorothiazide 25 mg PO DAILY 90 tabs 2RF I10 - Essential (primary) hypertension atorvastatin 10 mg PO DAILY 90 tabs 2RF E78.00 - Pure hypercholesterolemia, unspecified Discontinued diclofenac sodium Discontinued Reason: Doctor's Order 75 mg PO BID 90 tabs 1RF M17.9 - Osteoarthritis of knee, unspecified
[2025-01-24 12:35] VITALS: BP 140/62; PULSE 95; O2SAT 95; BMI 39.3
== END 2025-01-24 13:33 | disposition home or self-care (01) ==
LOC: HO.HMCH 12:12
PROVIDERS: PCP Internal Medicine; Visit Provider Internal Medicine
DX: K76.0 Fatty (change of) liver, not elsewhere classified (principal); E78.00 Pure hypercholesterolemia, unspecified; E66.9 Obesity, unspecified; Z68.39 Body mass index [BMI] 39.0-39.9, adult; J45.20 Mild intermittent asthma, uncomplicated; I10 Essential (primary) hypertension; R73.01 Impaired fasting glucose; Z53.20 Procedure and treatment not carried out because of patient's decision for unspecified reasons

== ENCOUNTER → 2025-01-24 12:12 | Outpatient (BNVA) | payer MEDICARE, SELFPAY | PROVIDERS: PCP Internal Medicine; Visit Provider Internal Medicine | DX: K76.0 Fatty (change of) liver, not elsewhere classified (principal); E78.00 Pure hypercholesterolemia, unspecified; J45.20 Mild intermittent asthma, uncomplicated | CPT/HCPCS: 99212 ==

== ENCOUNTER 2025-04-06 06:58 | Outpatient (REF) | payer MEDICARE, SELFPAY ==
[2025-04-06 07:48] LABS: Estimated Average Glucose 126 mg/dL; Hemoglobin A1C 149.5904 umol/L; Total Hemoglobin (HGBA1C) 3578.3914 umol/L
[2025-04-06 07:50] LABS: Alanine Aminotransferase 35 U/L (0-31); Albumin Level 4.2 g/dL (3.5-5.0); Anion Gap 15 (12-20); Aspartate Amino Transferase 26 U/L (5-31); Bilirubin Total 0.7 mg/dL (0.0-1.0); Blood Urea Nitrogen 23 mg/dL (9-16); Calcium 9.4 mg/dL (8.4-10.2); Carbon Dioxide 26 mmol/L (22-29); Chloride 107 mmol/L (96-108); Estimated Glomerular Filt Rate 46; Glucose Random 107 mg/dL (60-115); Potassium 4.5 mmol/L (3.3-5.1); Sodium 143 mmol/L (135-145); Total Protein 7.1 g/dL (6.5-8.0)
[2025-04-06 08:07] LABS: Alkaline Phosphatase 72 U/L (39-117)
== END 2025-04-06 06:59 | disposition home or self-care (01) ==
LOC: HO.LAB 06:58
PROVIDERS: PCP Internal Medicine; Visit Provider Internal Medicine
DX: M81.0 Age-related osteoporosis without current pathological fracture (principal); Z13.1 Encounter for screening for diabetes mellitus
CPT/HCPCS: 36415; 80053; 83036

== ENCOUNTER 2025-05-03 10:48 | Outpatient (AMB) | payer MEDICARE, SELFPAY ==
[2025-05-03 11:19] VITALS: BP 128/86; PULSE 85; O2SAT 95; BMI 41.2
--- NOTE | 2025-05-03 11:19 | MHC.PC.OV ---
Vital Signs 05/03/25 11:19 Height 5 ft 2 in Weight 225 lb 8 oz BMI 41.2 BP 128/86 Blood Pressure Location Lt brachial Position Sitting Pulse 85 Pulse Source Pulse Oximeter Pulse Oximetry (%) 95 Oxygen Delivery Method Room Air Intake Visit Reasons: 3 month f/u [employer] Required: No Accompanied by: spouse Allergies No Known Allergies Allergy (Verified 05/03/25 11:29) Medication List - Last Reconciled 05/03/25 by Compa Zimmerman MD albuterol sulfate 0.63 mg inhalation Q4-6H PRN albuterol sulfate 90 mcg/actuation 2 puffs inhalation Q4-6H PRN atorvastatin 10 mg PO DAILY cholecalciferol (vitamin D3) 50 mcg PO DAILY 90 days hydrochlorothiazide 25 mg PO DAILY hydrocodone-acetaminophen 5-325 mg 1 tab PO BID PRN hydrocortisone 2.5% 1 appl topical TID PRN lisinopril 40 mg PO DAILY [magnilife leg and back pain cream topical] mometasone (Asmanex Twisthaler) 1 inh inhalation DAILY 90 days tirzepatide (weight loss) (Zepbound) 2.5 mg (0.5 mL) subcut QWEEK triamcinolone acetonide 0.025% 1 appl topical BID Tobacco use date assessed: 05/03/25 Fall risk assessment: No Falls in past year Last assessed Fall Risk: 05/03/25 Dental Screening Dental Screen Date: 05/03/25 Did you have a dental visit in the last 12 months?: No Did you have a dental problem in the last 6 months where you did not have access to dental care?: No Was dental information given to patient?: Patient has dentist [facility] Medical History (Updated 01/24/25 @ 12:48 by Compa Zimmerman MD) Obesity (BMI 30-39.9) Osteoporosis Breast lump on right side at 6 o'clock position Post-menopausal Screening for diabetes mellitus Colon cancer screening Hypertension Degenerative disc disease, lumbar Osteopenia Hypercholesterolemia Asthma Surgical History History of total right hip replacement History of right cataract surgery History of repair of left rotator cuff History of tubal ligation Family History Father No problems noted. Mother Liver cancer Social History Housing: House Alcohol intake: former Patient Tobacco Use Status: Former Tobacco user Tobacco use type: Cigarette Years Smoked: 16 years old 6 months only e-Cigarette/Vaping Use: Never Used Second Hand Smoke Exposure: No service: No Current occupational status: retired Cognitive needs: No Hearing needs: No Vision needs: Yes Questionnaire PHQ-9 Over the last 2 weeks, how often have you been bothered by any of the following problems? 1. Little interest or pleasure in doing things: not at all 2. Feeling down, depressed, or hopeless: not at all 3. Trouble falling or staying asleep, or sleeping too much: not at all 4. Feeling tired or having little energy: not at all 5. Poor appetite or overeating: not at all 6. Feeling bad about yourself - or that you are a failure or have let yourself or your family down: not at all 7. Trouble concentrating on things, such as reading the newspaper or watching television: not at all 8. Moving or speaking so slowly that other people could have noticed. Or the opposite - being so fidgety or restless that you have been moving around a lot more than usual: not at all 9. Thoughts that you would be better off or of hurting yourself in some way: not at all Total score: 0 Depression Screening Interpretation: Negative Depression Screening Done: Yes Source: Developed by Drs. James Bolton, Kimberly Myers, Grabiel Kolb and colleagues, with an educational ravinder from [employer]. Thrive Questionnaire Date Thrive assessed: 05/03/25 I am a: Patient What is your living situation today?: I have a steady place to live Within the past 12 months, did the food you bought not last and you didn't have the money to get more?: Never true Within the past 12 months, did you worry whether your food would run out before you got money to buy more?: Never true Do you have trouble paying for medicines?: No Do you have trouble getting transportation to medical appointments?: No Do you have trouble paying your heating and electricity bill?: No Do you have trouble taking care of your child, family member or friend?: No Do you have trouble with day-to-day activities such as bathing, preparing meals, shopping, managing finances, etc.?: No Are you currently unemployed and looking for a job?: No Are you interested in more education?: No Please select the resources that you would like help with: None Currently or been in a relationship where the following occur: No concerns reported THRIVE Score: 0 AUDIT C Alcohol Use Questionnaire (AUDIT-C) 1. How often do you have a drink containing alcohol?: Never 3. How often do you have six or more drinks on one occasion?: Never Total Score: 0 PATRICIO-7 AMB Questionnaire PATRICIO-7 Date PATRICIO - 7 assessed: 05/03/25 Feeling nervous, anxious, or on edge: 0 = Not at all Not being able to stop or control worryin = Not at all Worrying too much about different things: 0 = Not at all Trouble relaxin = Not at all Being so restless that it is hard to sit still: 0 = Not at all Becoming easily annoyed or irritable: 0 = Not at all Feeling afraid as if something awful might happen: 0 = Not at all Total PATRICIO-7 score (0-4 normal; 5-9 mild; 10-14 moderate; 15-21 severe): 0 Source: Developed by Drs. James Bolton, Kimberly Myers, Grabiel Kolb and colleagues, with an educational ravinder from [employer]. Physical exam (Primary Care) Vital Signs: Last Vital Signs Pulse 85 05/03/25 11:19 BP 128/86 05/03/25 11:19 Pulse Ox 95 05/03/25 11:19 Oxygen Delivery Method Room Air 05/03/25 11:19 BMI result Body Mass Index 41.2 Tobacco/Smoking Status: Tobacco use Status Tobacco use date assessed 05/03/25 05/03/25 11:29 Patient Tobacco Use Status Former Tobacco user 05/03/25 11:20 Tobacco use type Cigarette 05/03/25 11:20 e-Cigarette/Vaping Use Never Used 05/03/25 11:20 PHQ-9: PHQ-9 Score PHQ-9: Total score 0 05/03/25 11:41 Depression Screening Interpretation: Negative Thrive Assessment: Date of Thrive Assessment Date Thrive assessed 05/03/25 05/03/25 11:29 Currently or been in a relationship where the following occur: No concerns reported Const General: alert; No acute distress Eyes Conjunctivae: conjunctivae normal Resp Auscultation: clear to auscultation bilaterally Cardio Rate: regular rate Rhythm: regular rhythm GI Inspection: Yes normal to inspection Extrem General: Yes normal to inspection and No edema Coding Level of Care Code Est Pt Level 4 (39597) Diagnoses Morbid obesity E66.01 Essential hypertension I10 Hypertension type: essential hypertension Hypercholesterolemia E78.00 Hepatic steatosis K76.0 Degenerative disc disease, lumbar M51.36 Impaired fasting blood sugar R73.01 Assessment & Plan Assessment & Plan (1) Morbid obesity: Code(s): E66.01 - Morbid (severe) obesity due to excess calories Category: Medical Plan: Diet and exercise (2) Hypertension: Code(s): I10 - Essential (primary) hypertension Category: Medical Qualifiers: Hypertension type: essential hypertension Qualified Code(s): I10 - Essential (primary) hypertension Plan: Continue with blood pressure medication. Decrease salt intake and exercise on lisinopril 40 mg once a day hydrochlorothiazide 25 mg once a day (3) Hypercholesterolemia: Code(s): E78.00 - Pure hypercholesterolemia, unspecified Category: Medical Plan: Avoid fried foods, chicken skin, eggs, butter margarine, pastries and meat. Be it pork or beef they have a lot of cholesterol LDL goal of less than 130 and triglyceride of less than 150 on atorvastatin 10 mg once a day (4) Hepatic steatosis: Code(s): K76.0 - Fatty (change of) liver, not elsewhere classified Category: Medical Plan: Low-fat diet and exercise (5) Degenerative disc disease, lumbar: Code(s): M51.36 - Other intervertebral disc degeneration, lumbar region Category: Medical Plan: Patient is strongly advised to lose the weight. Narcotic pain meds: Is being prescribed with the understanding that these medications are potentially addictive and should be used only when absolutely necessary and must always be secured. Any remaining pills should be safely disposed off appropriately. Patient is advised that narcotics can impaired judgment and one should not drive or operate heavy machinery while taking these medications. Never share these medications with anybody and do not leave them unattended. They will not be replaced under any circumstances. (6) Impaired fasting blood sugar: Code(s): R73.01 - Impaired fasting glucose Category: Medical Plan History of Present Illness The patient is a 79-year-old female presenting for a follow-up visit. She has a history of morbid obesity, with a recent weight gain of 10 pounds. Her medical history includes hypercholesterolemia, lumbar degenerative disc disease, hypertension, asthma, peripheral vascular disease, impaired glucose tolerance, and hepatic steatosis. In September 2024, her blood work showed normal blood count and stable renal function, with a hemoglobin A1c of 6.0, indicating impaired glucose tolerance. Her liver function tests were elevated, consistent with known hepatic steatosis, and her LDL cholesterol was 86 mg/dL. Health Maintenance - Advised on low-fat diet and exercise for weight management and cholesterol control - Strongly advised to lose weight Social History Review of Systems Physical Exam Results - Labs: Normal blood count, stable renal function, hemoglobin A1c of 6.0, elevated liver function tests, LDL cholesterol of 86 mg/dL Plan The patient is advised to continue with a low-fat diet and regular exercise to manage her weight and cholesterol levels. For hypertension, she is on lisinopril 40 mg once daily and hydrochlorothiazide 25 mg once daily. Her cholesterol management includes atorvastatin 10 mg once daily, with a goal LDL of less than 130 mg/dL and triglycerides less than 150 mg/dL. The patient is strongly advised to lose weight to improve her overall health status. Patient was informed and verbally consented to the use of an ambient scribe for clinic note documentation during this visit. Discussion Notes Patient Instructions - Follow a low-fat diet and engage in regular exercise. - Take lisinopril 40 mg and hydrochlorothiazide 25 mg once daily as prescribed. - Continue atorvastatin 10 mg once daily to manage cholesterol levels. - Aim to lose weight to improve overall health. Medications: New tirzepatide (weight loss) (Zepbound) for 4 weeks 2.5 mg (0.5 mL) subcut QWEEK 2 mL 2RF E66.01 - Morbid (severe) obesity due to excess calories Refilled hydrocodone-acetaminophen 5-325 mg 1 tab PO BID PRN 45 tabs 0RF pain M51.36 - Other intervertebral disc degeneration, lumbar region
--- OUTSIDE RECORDS SUMMARY | 2025-05-03 12:21 | XMS_ITS | Data Portability ---
Author Organization [place] - [facility], [facility] Address [address] [place] [address] Care Team Providers Care Fibre Technologist Name Role Phone OLLIE ALATORRE Primary Care Provider [phone] Assessment Encounter Date Assessment Date Assessment LastModified by Organization Details LastModified Time 06/02/2024 06/02/2024 Imaging: Imaging ordered, independently reviewed and interpreted by Neil Fields MD reveals the following findings: XR Hip Right hip: Two views of the hip were obtained including AP pelvis and groin lateral views. Status post hip surgery: Status post DANNY with no evidence of complication, well fixed, well aligned, and located. There is good worship of leg length and offset without loosening or migration. Impression: Status post right anterior total hip arthroplasty 1 year out Plan: The patient is doing well, continue activities as tolerated. Further follow-up as needed [email or web address] Not available 06/02/2024 11:42:27 12/18/2024 12/18/2024 I am seeing the patient today under the supervision of christos who was available but who did not see the patient. HPI: Patient presents today regarding their R knee. They have had difficulty up and down stairs sitting standing. Problems ambulating. Prds-iey-dfwajzj medications are helping somewhat but not significantly. Pain is constant aching sometimes sharp pain with giving out sensations. Past family, medical, social history and review of systems has been reviewed, updated and is located in the patient s chart. Examination: The patient is well appearing and in no apparent distress. Alert and oriented x3. Gait is symmetric. Examination of the R knee reveals no evidence of any edema, erythema, or warmth. noR Deformity. Range of motion of the knee limited with mild discomfort at the end ranges. Mild effusion. Does have some tenderness to palpation about the medial hemijoint line. No tenderness to palpation about the lateral hemijoint line. Patellofemoral crepitus is noted. mild lateral ligamentous laxity. Negative Yue s. Calf is supple and nontender. Neurovascularly intact distally. 4 X-ray views of the knee were independently reviewed today showed narrowing of the medial compartment of the R knee. With slight osteophyte formation. Narrowing is noted of patellofemoral joint as well. No evidence of any other bony lesions or pathology. Impression:R Knee osteoarthritis Plan: We discussed the role of conservative management including medications, physical therapy, injection and bracing. At this point the patient was to proceed with injection. Please see procedure note. They will follow up with us as scheduled. Not available 12/18/2024 13:40:01 03/22/2025 03/22/2025 I am seeing the patient today under the supervision of Dr Carrasco who was available but who did not see the patient. Not available 03/22/2025 08:51:57 Plan of Treatment Reminders Order Date Submit Date Provider Last Modified By Organization Details Last Modified Time Details Appointments RECHECK 15 2024 09:00A M Vipin Kidd PA-C Not available Not available Not available Lab None recorded . Referral None recorded . Procedures None recorded . Surgeries None recorded . Imaging XR, hip + pelvis, unilater al, 2 or 3 view - ROOM 203, Annual RTHR AB 2023 024 [email or web address] 4 [facility], [address] [facility], [facility] [address], [place], [address], 06/02/2024 18:17:17 Medication Orders None recorded . Patient TargetsNo targets recorded. Patient InstructionsNo instructions recorded. Reason for Referral None Reported. Results Created Date Observation Date Name Description Value Unit Range Abnormal Flag Note LastModifiedBy Organization Detail LastModifiedTime 06/02/20 24 06/02/2024 XR, hip + pelvi s, unila teral , 2 or 3 view http:/ [email or web address] ?Encry pted=s hAaTro YD8dLq bEUv6g %2BXZw aYqtaq 0bqfl% 2Fg9IQ a4ajBk vP9nXo QUaueC m3YtLR FvZlgJ JJ8mAn HZtai3 3u2769 AC0KpY nWAU6T eUC8mr 84%3D INTERFACE [facility] [address], [place], [address], 06/02/2024 11:30:31 06/02/20 24 06/02/2024 XR, hip + pelvi s, unila teral , 2 or 3 view http:/ [email or web address] ?Encry pted=s hAaTro YD8dLq bEUv6g %2BXZw aYqtaq 0bqfl% 2Fg9IQ a4ajBk vP9nXo QUaueC m3YtLR FvZlgJ JJ8mAn HZtai3 2f4042 AC0KpY nWAU6T eUC8mr 84%3D INTERFACE [facility] [address], [place], [address], 06/02/2024 11:30:32 Result Notes Documentation Provider Name and Address Organization Details Recorded Time Xr, Hip + Pelvis, Unilateral, 2 Or 3 View : [email or web address] Encrypted=lyXjUlwIC3qTmxZ Uv6g%7ABBvqVmyfy8ueop%2Fg 6MZe4oiHqrD1rIbMApidZj5Ze KPOoImiEAX8hQnLBosl81d073 9SL7HmPoYBR2PeTP2ly16%3D Not Available [facility] 06/02/2024 11:3 0:31 Xr, Hip + Pelvis, Unilateral, 2 Or 3 View : [email or web address] Encrypted=laSdWibWM6vAcfE Uv6g%1ECJtfZqiwk0imjp%2Fg 8BFu4tfHgnD8gWzTOprcGi3Vk EOUgUokNUB3cPkRDuws51r726 8LF1YbNyKHI7WcWM3hy27%3D Not Available [facility] 06/02/2024 11:3 0:33 Problems Name Problem SNOMED Code Status Onset Date Resolution Date Notes Provider Name and Address Organization Details Recorded Time History of total replacemen t of right hip joint 1205511958238 00 Active 2023 Neil Fields MD [address], [place], [address] , [facility] 4 11:42:26 Osteoarthr itis of right knee joint 2855154841819 00 [facility] 4 09:20:01 Problem Notes None recorded. Procedures Surgical History Date Name Laterality Status Provider Name and Address Organization Details Recorded Time 03/22/2025 JZKNEE INJ completed Thor Patino PA-C [address], [place], [address], [facility] 03/22/2025 08:52:01 12/18/2024 JZKNEE INJ completed Thor Patino PA-C [address], [place], [address], [facility] 12/18/2024 13:39:59 Imaging Results None recorded. Procedure Notes None recorded. Medical Equipment None Reported. Allergies No known drug allergies Medications Name Sig Start Date Stop Date Status Note LastModified by Organization Details LastModified Time atorvastati n 10 mg tablet TAKE 1 TABLET BY MOUTH EVERY DAY active Not Available Not Available No t Available hydrocodone 5 mg-acetamin ophen 325 mg tablet TAKE 1 TAB ORALLY 2 TIMES A DAY NEEDED FOR PAIN active Not Available Not Available No t Available meloxicam 15 mg tablet TAKE 1 TABLET BY MOUTH EVERY DAY active Not Available Not Available No t Available amlodipine 5 mg tablet TAKE 1 TABLET BY MOUTH EVERY DAY active Not Available Not Available No t Available tramadol 50 mg tablet TAKE 1 TO 2 TABLETS BY MOUTH EVERY 6 HOURS NEEDED FOR MILD PAIN. (DO NOT DRIVE WHILE ON THIS MEDICATIO N) active Not Available Not Available No t Available triamcinolo ne acetonide 0.025 % topical cream active Not Available Not Available Not Available diclofenac sodium 75 mg tablet,valarie yed release TAKE 1 TABLET BY MOUTH 2 TIMES A DAY active Not Available Not Available No t Available hydrochloro thiazide 25 mg tablet TAKE 1 TABLET BY MOUTH ONCE DAILY active Not Available Not Available No t Available nystatin 100,000 unit/gram topical powder active Not Available Not Available Not Available albuterol sulfate HFA 90 mcg/actuati on aerosol inhaler active Not Available Not Available Not Available lisinopril 40 mg tablet TAKE 1 TABLET BY MOUTH EVERY DAY active Not Available Not Available No t Available oxycodone 5 mg tablet TAKE 1 TO 2 TABLETS BY MOUTH EVERY 4 HOURS NEEDED FOR MODERATE PAIN active Not Available Not Available No t Available Asmanex Twisthaler 220 mcg/actuati on(30 doses) breath activated inhalr active Not Available Not Available Not Available hydrochloro thiazide 12.5 mg tablet TAKE 1 TABLET BY MOUTH EVERY DAY active Not Available Not Available No t Available cholecalcif bertrand (vitamin D3) 50 mcg (2,000 unit) capsule TAKE 1 CAPSULE BY MOUTH EVERY DAY active Not Available Not Available No t Available oxycodone HCl-oxycodo ne-ASA 1 to 2 tab po q 4 hours prn moderate pain 12/18 completed Statu s: 'Curr ent'; Not Available Not Available Not Available Vitals Date Recorded Body height Body mass index (BMI) Body weight Provider Name and Address Organization Details Last Updated DateTime 12/18/2024 154.94 cm 39.7 kg/m2 77900.4 g Rodney Gambino [facility] 12/18/2024 13:28:27 Date Recorded Body height Body mass index (BMI) Body weight Provider Name and Address Organization Details Last Updated DateTime 03/22/2025 154.94 cm 39.7 kg/m2 21113.4 g Rodney Gambino [facility] 03/22/2025 08:47:20 Social History None recorded. Functional Status None recorded. Mental Status None recorded. Family History Nothing Reported. Medical History No medical history recorded. Gynecological HistoryNo gynecological history recorded. Obstetrics History GPAL:G 0 P 0 0 0 0 Past Encounters Encounter ID Performer Location Encounter Start Date Encounter Closed Date Diagnosis/Indication Diagnosis SNOMED-CT Code Diagnosis ICD10 Code Diagnosis Note [id number] MD Lalo Esteves [address] [place] [address] 06/02/2024 11:15:21 06/02/2024 11:50:51 History of total replacement of right hip joint 4597007316 33137 Z96.902 [id number] Thor Patino PA-C [facility] [address] [place] [address] 12/18/2024 12:50:49 12/29/2024 11:33:10 Osteoarthritis of right knee joint 0348123101 16216 M17.11 [id number] Thor Patino PA-C [facility] [address] [place] [address] 03/22/2025 08:29:36 04/06/2025 15:25:33 Osteoarthritis of right knee joint 2885979075 67440 M17.11 Health Concerns Section Related Observation LastModified by Organization Detai ls LastModified Time None Recorded Concern Status LastModified by Organization Details LastModified Time None Recorded Advance Directives Directive None Recorded Payers Insurance Date Sequence Insurance Name Policy Number Policy Celestin Covered Member ID Celestin Member ID Guarantor Name 03/22/2025 1 [place] [employer] [place] Justyn Tori [id number] Virginia Valle 04/06/2025 [address] [facility] (MEDICARE REPLACEMENT/AD VANTAGE - PPO) [id number] Virginia Valle [id number] Virginia Valle 03/22/2025 [address] [facility] [id number] Virginia L Tori [id number] Virginia Valle Notes Date Note Type Note Provider Name and Address Organization Details Recorded Time 06/02/2024 text/html History of prese nt illness:This patient follows up today and is now 1 year out from right anterior total hip arthroplasty. Their pain is well controlled and they are progressing as expected with physical therapy. Able to do current activities without significant difficulty. They have no major complaints at this time and are satisfied with their current state of recovery.She was recently diagnosed with right knee osteoarthritis and started on long-acting anti-inflammatory, I asked her whether she had considered injections and she said that she had not because she was worried about the pain from them. I advised her that most patients end up getting injections for quite some time in the knee before undergoing knee replacement surgery, and she does seem to have some time left in her knee based off of the amount of joint space left on her radiographs. I do think she would benefit from injection therapies in the future and encouraged her to consider these if her knee pain does worsenPast family, medical, social history and review of systems has been reviewed and updated, and is located in the patient s chart. Neil Fields MD [address] [place], [place] [address], [place], [address], [facility] [place] [facility] 06/02/2024 11:42:37 OBGyn Episode No OBEpisode recorded.
== END 2025-05-03 12:08 | disposition home or self-care (01) ==
LOC: HO.HMCH 10:48
PROVIDERS: PCP Internal Medicine; Visit Provider Internal Medicine
DX: I10 Essential (primary) hypertension (principal); E66.01 Morbid (severe) obesity due to excess calories; Z68.41 Body mass index [BMI] 40.0-44.9, adult; E78.00 Pure hypercholesterolemia, unspecified; K76.0 Fatty (change of) liver, not elsewhere classified; M51.369 Other intervertebral disc degeneration, lumbar region without mention of lumbar back pain or lower extremity pain; R73.01 Impaired fasting glucose

== ENCOUNTER → 2025-05-03 10:48 | Outpatient (BNVA) | payer MEDICARE, SELFPAY | PROVIDERS: PCP Internal Medicine; Visit Provider Internal Medicine | DX: E66.01 Morbid (severe) obesity due to excess calories (principal); I10 Essential (primary) hypertension; E78.00 Pure hypercholesterolemia, unspecified; K76.0 Fatty (change of) liver, not elsewhere classified; M51.360 Other intervertebral disc degeneration, lumbar region with discogenic back pain only; R73.01 Impaired fasting glucose; Z68.41 Body mass index [BMI] 40.0-44.9, adult | CPT/HCPCS: 96127; 99212 ==

== ENCOUNTER 2025-05-31 14:51 | Outpatient (AMB) | payer MEDICARE, SELFPAY ==
[2025-05-31 14:54] VITALS: BP 142/64; PULSE 103; O2SAT 97; BMI 41.9
--- NOTE | 2025-05-31 14:54 | MHC.PC.OV ---
Vital Signs 05/31/25 14:54 Height 5 ft 2 in Weight 229 lb 4 oz BMI 41.9 BP 142/64 H Blood Pressure Location Lt brachial Position Sitting Pulse 103 H Pulse Source Pulse Oximeter Pulse Oximetry (%) 97 Oxygen Delivery Method Room Air Intake Visit Reasons: bilateral ankle swelling Die Attacher Required: No Accompanied by: Self / Same As Patient Allergies No Known Allergies Allergy (Verified 05/31/25 15:10) Medication List - Last Reconciled 05/31/25 by OSVALDO Lou albuterol sulfate 0.63 mg inhalation Q4-6H PRN albuterol sulfate 90 mcg/actuation 2 puffs inhalation Q4-6H PRN atorvastatin 10 mg PO DAILY cholecalciferol (vitamin D3) 50 mcg PO DAILY 90 days hydrochlorothiazide 25 mg PO DAILY hydrocodone-acetaminophen 5-325 mg 1 tab PO BID PRN hydrocortisone 2.5% 1 appl topical TID PRN lisinopril 40 mg PO DAILY [magnilife leg and back pain cream topical] mometasone (Asmanex Twisthaler) 1 inh inhalation DAILY 90 days tirzepatide (weight loss) (Zepbound) 2.5 mg (0.5 mL) subcut QWEEK triamcinolone acetonide 0.025% 1 appl topical BID Tobacco use date assessed: 05/31/25 Fall risk assessment: No Falls in past year Last assessed Fall Risk: 05/31/25 Dental Screening Dental Screen Date: 05/31/25 Did you have a dental visit in the last 12 months?: No Did you have a dental problem in the last 6 months where you did not have access to dental care?: No Was dental information given to patient?: Patient has dentist HPI bilateral ankle swelling HPI Details The patient is a 79-year-old female presenting with swelling in the ankles and legs, along with muscle cramps. The swelling in the ankles has been present for a couple of months, with the right ankle being more swollen than the left. The patient reports that she is not sure if the swelling improves with elevation, because she has not paid attention to he legs while lying flat. The patient also reports experiencing muscle cramps, particularly at night, which have been occurring frequently over the past two to three months. These cramps occur even when she is sitting still, such as when sleeping in a chair. The patient is currently taking atorvastatin and amlodipine, which she has been adherent to. Amlodipine is noted to potentially cause leg swelling, and atorvastatin is known to cause muscle cramps. The patient has a history of hyperlipidemia and is on atorvastatin for cholesterol management. The patient has a suspected diagnosis of sleep apnea, with symptoms including snoring and observed apneic episodes during sleep. She has not undergone formal testing for sleep apnea yet. [facility] Medical History (Updated 05/31/25 @ 18:17 by OSVALDO Lou) Obesity (BMI 30-39.9) Osteoporosis Breast lump on right side at 6 o'clock position Post-menopausal Screening for diabetes mellitus Colon cancer screening Hypertension Degenerative disc disease, lumbar Osteopenia Hypercholesterolemia Asthma Surgical History History of total right hip replacement History of right cataract surgery History of repair of left rotator cuff History of tubal ligation Family History Father No problems noted. Mother Liver cancer Social History Housing: House Alcohol intake: former Patient Tobacco Use Status: Former Tobacco user Tobacco use type: Cigarette Years Smoked: 16 years old 6 months only e-Cigarette/Vaping Use: Never Used Second Hand Smoke Exposure: No service: No Current occupational status: retired Cognitive needs: No Hearing needs: No Vision needs: Yes Questionnaire PHQ-9 Over the last 2 weeks, how often have you been bothered by any of the following problems? 1. Little interest or pleasure in doing things: not at all 2. Feeling down, depressed, or hopeless: not at all 3. Trouble falling or staying asleep, or sleeping too much: not at all 4. Feeling tired or having little energy: not at all 5. Poor appetite or overeating: not at all 6. Feeling bad about yourself - or that you are a failure or have let yourself or your family down: not at all 7. Trouble concentrating on things, such as reading the newspaper or watching television: not at all 8. Moving or speaking so slowly that other people could have noticed. Or the opposite - being so fidgety or restless that you have been moving around a lot more than usual: not at all 9. Thoughts that you would be better off or of hurting yourself in some way: not at all Total score: 0 Depression Screening Interpretation: Negative Depression Screening Done: Yes Source: Developed by Drs. James Bolton, Kimberly Myers, Grabiel Kolb and colleagues, with an educational ravinder from [employer]. Thrive Questionnaire Date Thrive assessed: 05/31/25 I am a: Patient What is your living situation today?: I have a steady place to live Within the past 12 months, did the food you bought not last and you didn't have the money to get more?: Never true Within the past 12 months, did you worry whether your food would run out before you got money to buy more?: Never true Do you have trouble paying for medicines?: No Do you have trouble getting transportation to medical appointments?: No Do you have trouble paying your heating and electricity bill?: No Do you have trouble taking care of your child, family member or friend?: No Do you have trouble with day-to-day activities such as bathing, preparing meals, shopping, managing finances, etc.?: No Are you currently unemployed and looking for a job?: No Are you interested in more education?: No Please select the resources that you would like help with: None Currently or been in a relationship where the following occur: No concerns reported THRIVE Score: 0 AUDIT C Alcohol Use Questionnaire (AUDIT-C) 1. How often do you have a drink containing alcohol?: Never 3. How often do you have six or more drinks on one occasion?: Never Total Score: 0 PATRICIO-7 AMB Questionnaire PATRICIO-7 Date PATRICIO - 7 assessed: 05/31/25 Feeling nervous, anxious, or on edge: 0 = Not at all Not being able to stop or control worryin = Not at all Worrying too much about different things: 0 = Not at all Trouble relaxin = Not at all Being so restless that it is hard to sit still: 0 = Not at all Becoming easily annoyed or irritable: 0 = Not at all Feeling afraid as if something awful might happen: 0 = Not at all Total PATRICIO-7 score (0-4 normal; 5-9 mild; 10-14 moderate; 15-21 severe): 0 Source: Developed by Drs. James Bolton, Kimberly Myers, Grabiel Kolb and colleagues, with an educational ravinder from [employer]. Review of Systems Const Denies body aches, Denies chills, Denies fever(s), Denies headache(s), Reports lethargy, Denies poor appetite, Reports snoring and Reports other (Apneic episodes while sleeping) Eyes Reports no additional complaints ENT Denies dizziness and Denies headache(s) Card Denies chest pain, Denies syncope, Reports pedal edema, Denies edema, Denies irregular heart rhythm, Reports leg edema, Denies lightheadedness, Denies dyspnea and Reports dyspnea on exertion (On and off) Resp Denies cough, Denies dyspnea, Reports dyspnea on exertion (On and off) and Reports snoring Reports no additional complaints Skin/Breast Reports system reviewed and no additional complaints, except as documented Neuro Denies dizziness, Denies syncope and Denies headache(s) Psych Reports no additional complaints Physical exam (Primary Care) Vital Signs: Last Vital Signs Pulse 103 H 05/31/25 14:54 BP 142/64 H 05/31/25 14:54 Pulse Ox 97 05/31/25 14:54 Oxygen Delivery Method Room Air 05/31/25 14:54 BMI result Body Mass Index 41.9 Tobacco/Smoking Status: Tobacco use Status Tobacco use date assessed 05/31/25 05/31/25 15:02 Patient Tobacco Use Status Former Tobacco user 05/31/25 15:02 Tobacco use type Cigarette 05/31/25 15:02 e-Cigarette/Vaping Use Never Used 05/31/25 15:02 PHQ-9: PHQ-9 Score PHQ-9: Total score 0 05/31/25 15:02 Depression Screening Interpretation: Negative Thrive Assessment: Date of Thrive Assessment Date Thrive assessed 05/31/25 05/31/25 15:02 Currently or been in a relationship where the following occur: No concerns reported Const General: cooperative, healthy appearing, comfortable and no acute distress Orientation/consciousness: patient oriented x3 HENMT Head: Yes normocephalic Ears: hearing grossly normal bilaterally General nose exam: Normal external nose present Eyes General: appearance normal, both eyes and all related structures Conjunctivae: conjunctivae normal Neck Neck: Yes full ROM and Yes no lymphadenopathy Resp Effort & Inspection: normal respiratory effort Auscultation: clear to auscultation bilaterally, no crackles, no rales, no rhonchi and no wheezes Cardio Rate: regular rate Rhythm: regular rhythm Skin General skin exam: no rashes or lesions noted Neuro General: patient oriented x3 Gait exam (Neuro): Normal gait present Motor exam (neuro): 5/5 motor strength present throughout Extrem General: Yes normal to inspection, Yes full ROM and No edema Right lower extremity: lower leg Details: non-pitting edema Details: 2+, ankle Details: edema Details: non-pitting and 2+ and foot Details: no edema Left lower extremity: lower leg Details: non-pitting edema Details: 2+, ankle Details: pitting edema Details: non-pitting and 2+ and foot Details: no edema Psych Affect: normal affect Attitude: cooperative Insight: Good insight present (Psych) Judgement: Good judgement present (Psych) Coding Level of Care Code Est Pt Level 3 (90520) Diagnoses Swelling of both ankles M25.471; M25.472 Peripheral vascular disease I73.9 Renal insufficiency N28.9 Apneic episode R06.81 Time Spent (min) 35 Assessment & Plan Assessment & Plan (1) Swelling of both ankles: Code(s): M25.471 - Effusion, right ankle; M25.472 - Effusion, left ankle Category: Medical Plan: Patient is presenting with bilateral lower extremity swelling more pronounced in bilateral ankles. The swelling for the most part is non-pitting and is about +2, with the right being slightly bigger than the left. The patient was noted to be wearing tight below the ankle socks that were impeding her circulation. There was no swelling in her feet, the swelling starts right above the socks and settled mostly in bilateral ankles. Explained to the patient that her low riding socks is not a good option for her condition. Encouraged the patient to wear compression stockings and to elevate her legs whenever she can. We will also order BNP, BMP, and CBC to further evaluate. Instructed the patient to get the blood work done and soon as she can. She already has a follow appt with Dr. Zimmerman in July. Urge her to keep this appt. (2) Peripheral vascular disease: Code(s): I73.9 - Peripheral vascular disease, unspecified Category: Medical Plan: The patient has a history of peripheral vascular disease. This puts her at risk of a poor circulation. Explained to the patient with this condition on top of her ankle socks decreases her circulation in her legs. Encouraged the patient to maintain a low salt diet. And again encouraged the patient to start wearing compression stockings. (3) Renal insufficiency: Code(s): N28.9 - Disorder of kidney and ureter, unspecified Category: Medical Plan: Patient has a history of renal insufficiency. A BMP was ordered to further evaluate her kidney status. Encouraged proper hydration and avoiding NSAIDs. (4) Apneic episode: Code(s): R06.81 - Apnea, not elsewhere classified Category: Medical Plan: The patient was with her during the appointment reported apneic periods and snoring while sleeping. They are concerned if the patient might have sleep apnea. An in-home sleep study was ordered to further evaluate. Orders: Orders Basic Metabolic Panel Today E66.9 - Obesity, unspecified, I73.9 - Peripheral vascular disease, unspecified, M25.471 - Effusion, right ankle, M25.472 - Effusion, left ankle B Type Natriuretic Peptide Today E66.9 - Obesity, unspecified, I73.9 - Peripheral vascular disease, unspecified, M25.471 - Effusion, right ankle, M25.472 - Effusion, left ankle Complete Blood Count Auto Diff Today E66.9 - Obesity, unspecified, I73.9 - Peripheral vascular disease, unspecified, M25.471 - Effusion, right ankle, M25.472 - Effusion, left ankle
--- OUTSIDE RECORDS SUMMARY | 2025-05-31 15:35 | XMS_ITS | Data Portability ---
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 There is good nondenominational of leg length and offset without loosening or migration. Impression: Status post right anterior total hip arthroplasty 1 year out Plan: The patient is doing well, continue activities as tolerated. Further follow-up as needed [email or web address] Not available 06/02/2024 11:42:27 12/18/2024 12/18/2024 I am seeing the patient today under the supervision of christos who was available but who did not see the patient. HPI: Patient presents today regarding their R knee. They have had difficulty up and down stairs sitting standing. Problems ambulating. Ceeq-ort-fiptisf medications are helping somewhat but not significantly. [...] Time Details Appointments RECHECK 15 2024 09:00A Franklin Kidd PA-C Not available Not available Not available Lab None recorded . Referral None recorded . Procedures None recorded . Surgeries None recorded . Imaging XR, hip + pelvis, unilater al, 2 or 3 view - ROOM 203, Annual RTHR AB 2023 024 [email or web address] 4 [facility], [address] [facility] [address], [facility] [address], [place], [address], 06/02/2024 18:17:17 Medication Orders None recorded . Patient TargetsNo targets recorded. Patient InstructionsNo instructions recorded. Reason for Referral None Reported. Results Created Date Observation Date Name Description Value Unit Range Abnormal Flag Note LastModifiedBy Organization Detail LastModifiedTime 06/02/20 24 06/02/2024 XR, hip + pelvi s, unila teral , 2 or 3 view http:/ [email or web address] ?Encry pted=s Baljeetmarsha YD8dLq bEUv6g %2BXZw aYqtaq 0bqfl% 2Fg9IQ a4ajBk vP9nXo QUaueC m3YtLR FvZlgJ JJ8mAn HZtai3 0a7897 AC0KpY nWAU6T eUC8mr 84%3D INTERFACE [facility] [address] [facility], [place], [address], 06/02/2024 11:30:31 06/02/20 24 06/02/2024 XR, hip + pelvi s, unila teral , 2 or 3 view http:/ [email or web address] ?Encry pted=s hAaTro YD8dLq bEUv6g %2BXZw aYqtaq 0bqfl% 2Fg9IQ a4ajBk vP9nXo QUaueC m3YtLR FvZlgJ JJ8mAn HZtai3 1y8751 AC0KpY nWAU6T eUC8mr 84%3D INTERFACE [facility] Office [address] [facility] [address], [place], [address], 06/02/2024 11:30:32 Result Notes Documentation Provider Name and Address Organization Details Recorded Time Xr, Hip + Pelvis, Unilateral, 2 Or 3 View : [email or web address] Encrypted=xvLmSljMK6uCbzV Uv6g%6HUKwgYotub1tuor%2Fg 2PZi2bmWbmZ6kTfFGclxYq9Ss NVIjBrePUN4oUlPXhjc03p490 5YH0IgTeFZP8DrGX0td74%3D Not Available [facility] 06/02/2024 11:3 0:31 Xr, Hip + Pelvis, Unilateral, 2 Or 3 View : [email or web address] Encrypted=pjMtVliWR8kAidZ Uv6g%0ASVooLmtmm5lblu%2Fg 5SJd5eqSerJ0wGjHZthgJc0Nw LKSlSvuELW2tSnGHtei49e094 2LT0ThSjNUP0MeHP8uf94%3D Not Available [facility] 06/02/2024 11:3 0:33 Problems Name Problem SNOMED Code Status Onset Date Resolution Date Notes Provider Name and Address Organization Details Recorded Time Osteoarthr itis of right knee joint 1256654121632 00 Active 2023 REGINE HARKINS [facility] 4 09:20:01 History of total replacemen t of right hip joint 3646111568802 00 Active 2023 Neil Fields MD [address], [place], [address] , [facility] 4 11:42:26 Problem Notes None recorded. Procedures Surgical History Date Name Laterality Status Provider Name and Address Organization Details Recorded Time 03/22/2025 JZKNEE INJ completed Thor Patino PA-C [address], [place], [address], [facility] 03/22/2025 08:52:01 12/18/2024 JZKNEE INJ completed Thor Patino PA-C [address], [place], [address], [facility] 12/18/2024 13:39:59 Imaging Results None recorded. [...] Updated DateTime 12/18/2024 154.94 cm 39.7 kg/m2 55325.4 g Rodney Gambino [facility] 12/18/2024 13:28:27 Date Recorded Body height Body mass index (BMI) Body weight Provider Name and Address Organization Details Last Updated DateTime 03/22/2025 154.94 cm 39.7 kg/m2 15034.4 g Rodney Gambino [facility] 03/22/2025 08:47:20 Social History None recorded. Functional Status None recorded. Mental Status None recorded. Family History Nothing Reported. Medical History No medical history recorded. Gynecological HistoryNo gynecological history recorded. Obstetrics History GPAL:G 0 P 0 0 0 0 Past Encounters Encounter ID Performer Location Encounter Start Date Encounter Closed Date Diagnosis/Indication Diagnosis SNOMED-CT Code Diagnosis ICD10 Code Diagnosis Note [id number] MD Lalo Esteves [address] floor [address] [place] [address] 06/02/2024 11:15:21 06/02/2024 11:50:51 History of total replacement of right hip joint 0997969813 14916 Z96.989 [id number] Thor Patino PA-C GILLIAN May [address] floor [address] [place] [address] 12/18/2024 12:50:49 12/29/2024 11:33:10 Osteoarthritis of right knee joint 9115450576 75274 M17.11 [id number] AYALA Mckeon Andrew May [address] [place] [address] 03/22/2025 08:29:36 04/06/2025 15:25:33 Osteoarthritis of right knee joint 8201484967 70022 M17.11 Health Concerns Section Related Observation LastModified by Organization Detai ls LastModified Time None Recorded Concern Status LastModified by Organization Details LastModified Time None Recorded Advance Directives Directive None Recorded Payers Insurance Date Sequence Insurance Name Policy Number Policy Celestin Covered Member ID Celestin Member ID Guarantor Name 03/22/2025 1 [place]: [employer] Virginia Valle [id number] Virginia Valle 04/06/2025 1 [facility] (MEDICARE REPLACEMENT/AD VANTAGE - PPO) [id number] Virginia Valle [id number] Virginia Valle 03/22/2025 2 [facility]: [place] [id number] Virginia Valle [id number] [place] L Tori Notes Date Note Type Note Provider Name [...] the patient s chart. Neil Fields MD [address] [place] [place] [address] [address], [place], [address], [facility] 06/02/2024 11:42:37 OBGyn Episode No OBEpisode recorded.
== END 2025-05-31 16:05 | disposition home or self-care (01) ==
LOC: HO.HMCH 14:52
PROVIDERS: PCP Internal Medicine
DX: M25.471 Effusion, right ankle (principal); M25.472 Effusion, left ankle; I73.9 Peripheral vascular disease, unspecified; N28.9 Disorder of kidney and ureter, unspecified; R06.81 Apnea, not elsewhere classified

== ENCOUNTER → 2025-05-31 14:51 | Outpatient (BNVA) | payer MEDICARE, SELFPAY | PROVIDERS: PCP Internal Medicine | DX: M25.471 Effusion, right ankle (principal); M25.472 Effusion, left ankle; I73.9 Peripheral vascular disease, unspecified; N28.9 Disorder of kidney and ureter, unspecified; R06.81 Apnea, not elsewhere classified; E66.9 Obesity, unspecified; Z68.41 Body mass index [BMI] 40.0-44.9, adult | CPT/HCPCS: 96127; 99212 ==

== ENCOUNTER 2025-07-24 10:19 | Outpatient (AMB) | payer MEDICARE, SELFPAY ==
--- NOTE | 2025-07-24 10:21 | MHC.PC.OV ---
Vital Signs 07/24/25 10:22 Height 5 ft 2 in Weight 227 lb BMI 41.5 BP 140/72 H Blood Pressure Location Lt brachial Position Sitting Pulse 85 Pulse Source Pulse Oximeter Pulse Oximetry (%) 97 Oxygen Delivery Method Room Air Intake Visit Reasons: Swollen legs Allergies No Known Allergies Allergy (Verified 07/24/25 10:22) Medication List - Last Reconciled 07/24/25 by Compa Zimmerman MD acetaminophen ER (Tylenol 8 Hour) 650 mg PO Q8H albuterol sulfate 0.63 mg inhalation Q4-6H PRN albuterol sulfate 90 mcg/actuation 2 puffs inhalation Q4-6H PRN atorvastatin 10 mg PO DAILY cholecalciferol (vitamin D3) 50 mcg PO DAILY 90 days diclofenac sodium 75 mg PO BID hydrochlorothiazide 25 mg PO DAILY hydrocortisone 2.5% 1 appl topical TID PRN lisinopril 40 mg PO DAILY [magnilife leg and back pain cream topical] mometasone (Asmanex Twisthaler) 1 inh inhalation DAILY 90 days triamcinolone acetonide 0.025% 1 appl topical BID Tobacco use date assessed: 05/31/25 Fall risk assessment: No Falls in past year Last assessed Fall Risk: 07/24/25 Dental Screening Dental Screen Date: 05/31/25 [facility] Medical History (Updated 05/31/25 @ 18:17 by OSVALDO Lou) Obesity (BMI 30-39.9) Osteoporosis Breast lump on right side at 6 o'clock position Post-menopausal Screening for diabetes mellitus Colon cancer screening Hypertension Degenerative disc disease, lumbar Osteopenia Hypercholesterolemia Asthma Surgical History History of total right hip replacement History of right cataract surgery History of repair of left rotator cuff History of tubal ligation Family History Father No problems noted. Mother Liver cancer Social History Housing: House Alcohol intake: former Patient Tobacco Use Status: Former Tobacco user Tobacco use type: Cigarette Years Smoked: 16 years old 6 months only e-Cigarette/Vaping Use: Never Used Second Hand Smoke Exposure: No service: No Current occupational status: retired Cognitive needs: No Hearing needs: No Vision needs: Yes Questionnaire PHQ-9 Over the last 2 weeks, how often have you been bothered by any of the following problems? 1. Little interest or pleasure in doing things: not at all 2. Feeling down, depressed, or hopeless: not at all 3. Trouble falling or staying asleep, or sleeping too much: not at all 4. Feeling tired or having little energy: not at all 5. Poor appetite or overeating: not at all 6. Feeling bad about yourself - or that you are a failure or have let yourself or your family down: not at all 7. Trouble concentrating on things, such as reading the newspaper or watching television: not at all 8. Moving or speaking so slowly that other people could have noticed. Or the opposite - being so fidgety or restless that you have been moving around a lot more than usual: not at all 9. Thoughts that you would be better off or of hurting yourself in some way: not at all Total score: 0 Depression Screening Interpretation: Negative Depression Screening Done: Yes Source: Developed by Drs. James Bolton, Kimberly Myers, Grabiel Kolb and colleagues, with an educational ravinder from [employer]. Thrive Questionnaire Date Thrive assessed: 05/31/25 PATRICIO-7 AMB Questionnaire PATRICIO-7 Date PATRICIO - 7 assessed: 05/31/25 Source: Developed by Drs. James Bolton, Kimberly Myers, Grabiel Kolb and colleagues, with an educational ravinder from [employer]. Physical exam (Primary Care) Vital Signs: Last Vital Signs Pulse 85 07/24/25 10:22 BP 140/72 H 07/24/25 10:22 Pulse Ox 97 07/24/25 10:22 Oxygen Delivery Method Room Air 07/24/25 10:22 BMI result Body Mass Index 41.5 Tobacco/Smoking Status: Tobacco use Status Tobacco use date assessed 05/31/25 07/24/25 10:25 Patient Tobacco Use Status Former Tobacco user 07/24/25 10:25 Tobacco use type Cigarette 07/24/25 10:25 e-Cigarette/Vaping Use Never Used 07/24/25 10:25 PHQ-9: PHQ-9 Score PHQ-9: Total score 0 07/24/25 11:24 Depression Screening Interpretation: Negative Thrive Assessment: Date of Thrive Assessment Date Thrive assessed 05/31/25 07/24/25 10:25 Const General: alert; No acute distress Eyes Conjunctivae: conjunctivae normal Resp Auscultation: clear to auscultation bilaterally Cardio Rate: regular rate Rhythm: regular rhythm GI Inspection: Yes normal to inspection Extrem General: Yes normal to inspection and No edema Coding Level of Care Code Est Pt Level 4 (37325) Complex EM visit Add On G2211 Diagnoses Morbid obesity E66.01 Impaired fasting blood sugar R73.01 Hypercholesterolemia E78.00 Essential hypertension I10 Hypertension type: essential hypertension Peripheral vascular disease I73.9 Hepatic steatosis K76.0 Knee osteoarthritis M17.9 Mild intermittent asthma without complication J45.20 Asthma complication type: uncomplicated Asthma persistence: intermittent Asthma severity: mild Degenerative disc disease, lumbar M51.36 Assessment & Plan Assessment & Plan (1) Morbid obesity: Code(s): E66.01 - Morbid (severe) obesity due to excess calories Category: Medical Plan: Diet and exercise (2) Impaired fasting blood sugar: Code(s): R73.01 - Impaired fasting glucose Category: Medical Plan: Decrease the amount of carbohydrate intake, pasta, bread, rice and potatoes are all sugar and that is aside from all the sweet stuff, remember that fruits are good but they are Sweet also. (3) Hypercholesterolemia: Code(s): E78.00 - Pure hypercholesterolemia, unspecified Category: Medical Plan: Avoid fried foods, chicken skin, eggs, butter margarine, pastries and meat. Be it pork or beef they have a lot of cholesterol LDL goal of less than 130 and triglyceride of less than 150 on atorvastatin 10 mg once a day (4) Hypertension: Code(s): I10 - Essential (primary) hypertension Category: Medical Qualifiers: Hypertension type: essential hypertension Qualified Code(s): I10 - Essential (primary) hypertension Plan: Continue with blood pressure medication. Decrease salt intake and exercise patient on hydrochlorothiazide lisinopril (5) Peripheral vascular disease: Code(s): I73.9 - Peripheral vascular disease, unspecified Category: Medical Plan: When sitting down elevate the legs, exercise, and support stockings (6) Hepatic steatosis: Code(s): K76.0 - Fatty (change of) liver, not elsewhere classified Category: Medical Plan: Low-fat diet and exercise (7) Knee osteoarthritis: Code(s): M17.9 - Osteoarthritis of knee, unspecified Category: Medical Plan: Keep active. Discussed about the problem with diclofenac (8) Asthma: Code(s): J45.909 - Unspecified asthma, uncomplicated Category: Medical Qualifiers: Asthma complication type: uncomplicated Asthma persistence: intermittent Asthma severity: mild Qualified Code(s): J45.20 - Mild intermittent asthma, uncomplicated Plan: Continue with albuterol inhaler as needed (9) Degenerative disc disease, lumbar: Code(s): M51.36 - Other intervertebral disc degeneration, lumbar region Category: Medical Plan: Narcotic pain meds: Is being prescribed with the understanding that these medications are potentially addictive and should be used only when absolutely necessary and must always be secured. Any remaining pills should be safely disposed off appropriately. Patient is advised that narcotics can impaired judgment and one should not drive or operate heavy machinery while taking these medications. Never share these medications with anybody and do not leave them unattended. They will not be replaced under any circumstances. Plan History of Present Illness The patient is a 79-year-old female presenting for a follow-up visit. She has a history of hypercholesterolemia, asthma, lumbar degenerative disc disease, and hypertension. Additionally, she has impaired glucose tolerance and hepatic steatosis, with a history of cholelithiasis. The patient has been experiencing right knee pain, for which she consulted orthopedics on June 22. She also reported ankle swelling, for which she saw a physician purchasing administrative assistant. Recent blood work from March 2025 showed a creatinine level of 1.13 mg/dL and a GFR of 46 mL/min/1.73 m?, indicating renal impairment. Her hemoglobin A1c was 6.0%, and liver function tests were mildly elevated. The patient is on atorvastatin for cholesterol management, with an LDL goal of less than 130 mg/dL and triglycerides less than 150 mg/dL. She is also taking lisinopril and hydrochlorothiazide for hypertension. Preventative care measures include a colonoscopy and mammogram, both of which are due. Health Maintenance - Colonoscopy is due - Mammogram is due - Bone density is up to date Social History - Exercise: Patient advised to maintain an active lifestyle - Weight Management: Patient has consulted with weight management services but faces insurance coverage issues Review of Systems - Musculoskeletal: Reports right knee pain, ankle swelling - Cardiovascular: Reports leg swelling, denies wearing support stockings regularly Physical Exam Results - Labs: Creatinine 1.13 mg/dL, GFR 46 mL/min/1.73 m?, Hemoglobin A1c 6.0%, mildly elevated liver function tests Plan Patient was informed and verbally consented to the use of an ambient scribe for clinic note documentation during this visit. 1. Hypercholesterolemia The patient is on atorvastatin 10 mg daily with a goal to maintain LDL cholesterol below 130 mg/dL and triglycerides below 150 mg/dL. 2. Hypertension The patient is currently managed with lisinopril and hydrochlorothiazide for blood pressure control. 3. Impaired Glucose Tolerance The patient's hemoglobin A1c is 6.0%, indicating impaired glucose tolerance, and dietary management is advised. 4. Hepatic Steatosis The patient has hepatic steatosis with mildly elevated liver function tests, and lifestyle modifications are recommended. 5. Right Knee Pain The patient consulted orthopedics for right knee pain and was advised on potential interventions. 6. Ankle Swelling The patient reported ankle swelling and was evaluated by a physician purchasing administrative assistant. 7. Preventative Care Colonoscopy and mammogram are due as part of routine preventative care. Discussion Notes During the visit, we discussed the management of hypercholesterolemia with atorvastatin and the importance of maintaining LDL and triglyceride levels within target ranges. We also reviewed the patient's blood pressure management with lisinopril and hydrochlorothiazide. The need for dietary management for impaired glucose tolerance was emphasized, along with lifestyle modifications for hepatic steatosis. Preventative care measures, including the scheduling of a colonoscopy and mammogram, were highlighted. Patient Instructions - Continue taking atorvastatin as prescribed to manage cholesterol levels. - Take lisinopril and hydrochlorothiazide as directed for blood pressure control. - Follow dietary recommendations to manage glucose levels. - Schedule and complete a colonoscopy and mammogram as part of preventative care. - Maintain an active lifestyle and adhere to weight management advice. Medications: New tirzepatide (weight loss) (Zepbound) for 4 weeks 2.5 mg (0.5 mL) subcut QWEEK 2 mL 2RF E66.01 - Morbid (severe) obesity due to excess calories tirzepatide (weight loss) (Zepbound) for 4 weeks 2.5 mg (0.5 mL) subcut QWEEK 2 mL 2RF E66.01 - Morbid (severe) obesity due to excess calories Refilled hydrocodone-acetaminophen 5-325 mg 1 tab PO BID PRN 45 tabs 0RF pain M51.36 - Other intervertebral disc degeneration, lumbar region
[2025-07-24 10:22] VITALS: BP 140/72; PULSE 85; O2SAT 97; BMI 41.5
== END 2025-07-24 12:39 | disposition home or self-care (01) ==
LOC: HO.HMCH 10:20
PROVIDERS: PCP Internal Medicine; Visit Provider Internal Medicine
DX: R73.01 Impaired fasting glucose (principal); E66.01 Morbid (severe) obesity due to excess calories; Z68.41 Body mass index [BMI] 40.0-44.9, adult; E78.00 Pure hypercholesterolemia, unspecified; I10 Essential (primary) hypertension; I73.9 Peripheral vascular disease, unspecified; K76.0 Fatty (change of) liver, not elsewhere classified; M17.9 Osteoarthritis of knee, unspecified; J45.20 Mild intermittent asthma, uncomplicated; M51.369 Other intervertebral disc degeneration, lumbar region without mention of lumbar back pain or lower extremity pain

== ENCOUNTER → 2025-07-24 10:19 | Outpatient (BNVA) | payer MEDICARE, SELFPAY | PROVIDERS: PCP Internal Medicine; Visit Provider Internal Medicine | DX: E66.01 Morbid (severe) obesity due to excess calories (principal); R73.01 Impaired fasting glucose; E78.00 Pure hypercholesterolemia, unspecified; I10 Essential (primary) hypertension; I73.9 Peripheral vascular disease, unspecified; K76.0 Fatty (change of) liver, not elsewhere classified; M17.9 Osteoarthritis of knee, unspecified; J45.20 Mild intermittent asthma, uncomplicated; M51.360 Other intervertebral disc degeneration, lumbar region with discogenic back pain only; M25.561 Pain in right knee; Z68.41 Body mass index [BMI] 40.0-44.9, adult | CPT/HCPCS: 96127; 99212 ==

== ENCOUNTER 2025-09-06 09:51 | Outpatient (REF) | payer MEDICARE, SELFPAY ==
[2025-09-06 10:09] LABS: MANUAL DIFF FLAG NO
[2025-09-06 10:38] LABS: Hematocrit 43.1 % (37.0-47.0); Hemoglobin 13.4 g/dl (12.0-16.0); Imm Gran Abs Auto 0.02 X10*3/uL (0.00-0.03); Imm Gran Pct Auto 0.3 % (0.0-0.4); Lymphocytes Absolute Auto 1.5 X10*3/uL (1.2-4.9); Mean Corpuscular HGB Conc 31.1 g/dl (31.0-35.0); Mean Corpuscular Hemoglobin 29.3 pg (27.0-33.0); Mean Corpuscular Volume 94.3 fL (80.0-98.0); NRBC Abs Auto 0.000 X10*3/uL (0.0-0.012); NRBC Pct Auto 0.0 /100WBC (0.0-0.2); Platelet Count 205 X10*3/uL (160-400); Red Blood Count 4.57 X10*6/uL (4.20-5.50); White Blood Count 6.7 X10*3/uL (4.8-10.8)
[2025-09-06 11:09] LABS: NT Pro B Type Natriuretic Pept 53.1 pg/mL (<300)
[2025-09-06 11:15] LABS: Anion Gap 12 (12-20); Blood Urea Nitrogen 21 mg/dL (9-16); Calcium 9.4 mg/dL (8.4-10.2); Carbon Dioxide 29 mmol/L (22-29); Chloride 106 mmol/L (96-108); Estimated Glomerular Filt Rate 42; Potassium 4.1 mmol/L (3.3-5.1); Sodium 143 mmol/L (135-145)
== END 2025-09-06 09:52 | disposition home or self-care (01) ==
LOC: HO.LAB 09:51
PROVIDERS: PCP Internal Medicine
DX: M25.471 Effusion, right ankle (principal); M25.472 Effusion, left ankle; I73.9 Peripheral vascular disease, unspecified; E66.9 Obesity, unspecified
CPT/HCPCS: 36415; 80048; 83880; 85025

== ENCOUNTER 2025-09-13 10:45 | Outpatient (AMB) | payer MEDICARE, SELFPAY ==
[2025-09-13 10:52] VITALS: BP 132/68; PULSE 94; TEMP 36.3; O2SAT 97; BMI 40.1
--- NOTE | 2025-09-13 10:52 | A.OFFPC_ITS ---
Vital Signs 09/13/25 10:52 Height 5 ft 2 in Weight 219 lb 6 oz BMI 40.1 BP 132/68 Blood Pressure Location Lt brachial Position Sitting Pulse 94 Pulse Source Pulse Oximeter Temp 97.3 F Temp Source Temporal Artery Scan Pulse Oximetry (%) 97 Oxygen Delivery Method Room Air Intake Visit Reasons: 3 month f/u Allergies No Known Allergies Allergy (Verified 09/13/25 10:55) Medication List - Last Reconciled 09/13/25 by Compa Zimmerman MD acetaminophen ER (Tylenol 8 Hour) 650 mg PO Q8H albuterol sulfate 0.63 mg inhalation Q4-6H PRN albuterol sulfate 90 mcg/actuation 2 puffs inhalation Q4-6H PRN atorvastatin 10 mg PO DAILY cholecalciferol (vitamin D3) 50 mcg PO DAILY 90 days hydrochlorothiazide 25 mg PO DAILY hydrocodone-acetaminophen 5-325 mg 1 tab PO BID PRN hydrocortisone 2.5% 1 appl topical TID PRN lisinopril 40 mg PO DAILY [magnilife leg and back pain cream topical] mometasone (Asmanex Twisthaler) 1 inh inhalation DAILY 90 days semaglutide (weight loss) 0.5 mg (0.5 mL) subcut QWEEK triamcinolone acetonide 0.025% 1 appl topical BID Tobacco use date assessed: 09/13/25 Fall risk assessment: No Falls in past year Last assessed Fall Risk: 09/13/25 Dental Screening Dental Screen Date: 09/13/25 Did you have a dental visit in the last 12 months?: No Did you have a dental problem in the last 6 months where you did not have access to dental care?: No Was dental information given to patient?: Patient has dentist HPI 3 month f/u HPI Details History of Present Illness The patient is an 80-year-old morbidly obese female presenting for a follow-up visit. She has noted an 8-pound weight loss. Her past medical history is significant for hypercholesterolemia, asthma, hypertension, lumbar degenerative disc disease, peripheral vascular disease, impaired glucose tolerance, and hepatic steatosis. The patient was last seen in July. Her most recent mammogram was in October 2023, and her last colon test was in 2005. A bone density scan is scheduled for November 2024. Recent lab work from August 2023 showed a normal blood count without anemia, normal electrolytes, and a creatinine of 1.23. A hemoglobin A1c in March was 6.0%. Her LDL was 86 in September 2024. Vitamin D level was low and thyroid function was normal. The patient is currently taking atorvastatin. Health Maintenance - Colon cancer screening: Last colon kyleigh t was in 2005. - Breast cancer screening: Mammogram com pleted in October 2023. - Osteoporosis screening: Bone density s can is scheduled for November 2024. Social History - Diet: Advised to follow a low-fat diet . - Exercise: Encouraged to keep active. Review of Systems Physical Exam - General Appearance: Morbidly obese fem hemalatha. - Weight: Noted 8-pound weight loss. Results - Blood count (August 2023): Normal, no anemia. - Electrolytes (August 2023): Normal. - Renal function (August 2023): Creatin ine 1.23. - Hemoglobin A1c (March): 6.0%. - LDL (September 2024): 86. - Vitamin D: Low. - Thyroid function: Normal. - Mammogram (October 2023): Results not specified. Plan Patient was informed and verbally consented to the use of an ambient scribe for clinic note documentation during this visit. 1. Prediabetes The patient's hemoglobin A1c was 6.0% in March. The plan includes diet and exercise, and a prescription for semaglutide was sent. 2. Hypertension The plan is to continue the current regimen of lisinopril 40 mg once a day and hydrochlorothiazide 25 mg once a day. 3. Hypercholesterolemia The patient's last LDL was 86. She will continue atorvastatin and is advised to follow a low-fat diet and exercise. 4. Asthma The plan is to continue using albuterol. 5. Morbid Obesity The patient is encouraged to lose weight and remain active. A prescription for semaglutide was sent which may aid in weight loss. Discussion Notes I have reviewed the patient's chronic conditions, including prediabetes, hypertension, hypercholesterolemia, and asthma. We will continue her current medications for blood pressure and cholesterol. For her prediabetes and weight management, I have sent a prescription for semaglutide and reinforced the importance of diet and exercise. She will also continue her albuterol inhaler for asthma. We noted that her last colon test was in 2005, and she is due for an updated screening. Patient Instructions - Continue to focus on diet and exercise for your overall health and to help manage your blood sugar. - A prescription for semaglutide has bee n sent to your pharmacy. - Continue taking Lisinopril 40 mg and H ydrochlorothiazide 25 mg once daily for your blood pressure. - Continue taking your atorvastatin for cholesterol and follow a low-fat diet. - Continue using your albuterol inhaler as needed for asthma. - Try to stay active to help with weight loss. [facility] Medical History Obesity (BMI 30-39.9) Osteoporosis Breast lump on right side at 6 o'clock position Post-menopausal Screening for diabetes mellitus Colon cancer screening Hypertension Degenerative disc disease, lumbar Osteopenia Hypercholesterolemia Asthma Surgical History History of total right hip replacement History of right cataract surgery History of repair of left rotator cuff History of tubal ligation Family History Father No problems noted. Mother Liver cancer Social History Housing: House Alcohol intake: former Patient Tobacco Use Status: Former Tobacco user Tobacco use type: Cigarette Years Smoked: 16 years old 6 months only e-Cigarette/Vaping Use: Never Used Second Hand Smoke Exposure: No service: No Current occupational status: retired Cognitive needs: No Hearing needs: No Vision needs: Yes Questionnaire PHQ-9 Over the last 2 weeks, how often have you been bothered by any of the following problems? 1. Little interest or pleasure in doing things: not at all 2. Feeling down, depressed, or hopeless: not at all 3. Trouble falling or staying asleep, or sleeping too much: not at all 4. Feeling tired or having little energy: not at all 5. Poor appetite or overeating: not at all 6. Feeling bad about yourself - or that you are a failure or have let yourself or your family down: not at all 7. Trouble concentrating on things, such as reading the newspaper or watching television: not at all 8. Moving or speaking so slowly that other people could have noticed. Or the opposite - being so fidgety or restless that you have been moving around a lot more than usual: not at all 9. Thoughts that you would be better off or of hurting yourself in some way: not at all Total score: 0 Depression Screening Interpretation: Negative Depression Screening Done: Yes Source: Developed by Drs. James Bolton, Kimberly Myers, Grabiel Kolb and colleagues, with an educational ravinder from [employer]. Thrive Questionnaire Date Thrive assessed: 05/31/25 I am a: Patient What is your living situation today?: I have a steady place to live Within the past 12 months, did the food you bought not last and you didn't have the money to get more?: Never true Within the past 12 months, did you worry whether your food would run out before you got money to buy more?: Never true Do you have trouble paying for medicines?: No Do you have trouble getting transportation to medical appointments?: No Do you have trouble paying your heating and electricity bill?: No Do you have trouble taking care of your child, family member or friend?: No Do you have trouble with day-to-day activities such as bathing, preparing meals, shopping, managing finances, etc.?: No Are you currently unemployed and looking for a job?: No Are you interested in more education?: No Please select the resources that you would like help with: None Currently or been in a relationship where the following occur: No concerns reported THRIVE Score: 0 AUDIT C Alcohol Use Questionnaire (AUDIT-C) 1. How often do you have a drink containing alcohol?: Never 3. How often do you have six or more drinks on one occasion?: Never Total Score: 0 PATRICIO-7 AMB Questionnaire PATRICIO-7 Date PATRICIO - 7 assessed: 05/31/25 Feeling nervous, anxious, or on edge: 0 = Not at all Not being able to stop or control worryin = Not at all Worrying too much about different things: 0 = Not at all Trouble relaxin = Not at all Being so restless that it is hard to sit still: 0 = Not at all Becoming easily annoyed or irritable: 0 = Not at all Feeling afraid as if something awful might happen: 0 = Not at all Total PATRICIO-7 score (0-4 normal; 5-9 mild; 10-14 moderate; 15-21 severe): 0 Source: Developed by Drs. James Bolton, Kimberly Myers, Grabiel Kolb and colleagues, with an educational ravinder from [employer]. Physical exam (Primary Care) Vital Signs: Last Vital Signs Temp 97.3 F 09/13/25 10:52 Pulse 94 09/13/25 10:52 BP 132/68 09/13/25 10:52 Pulse Ox 97 09/13/25 10:52 Oxygen Delivery Method Room Air 09/13/25 10:52 BMI result Body Mass Index 40.1 Tobacco/Smoking Status: Tobacco use Status Tobacco use date assessed 09/13/25 09/13/25 10:58 Patient Tobacco Use Status Former Tobacco user 09/13/25 10:52 Tobacco use type Cigarette 09/13/25 10:52 e-Cigarette/Vaping Use Never Used 09/13/25 10:52 PHQ-9: PHQ-9 Score PHQ-9: Total score 0 09/13/25 10:58 Depression Screening Interpretation: Negative Thrive Assessment: Date of Thrive Assessment Date Thrive assessed 05/31/25 09/13/25 10:52 Currently or been in a relationship where the following occur: No concerns reported Const General: alert; No acute distress Eyes Conjunctivae: conjunctivae normal Resp Auscultation: clear to auscultation bilaterally Cardio Rate: regular rate Rhythm: regular rhythm GI Inspection: Yes normal to inspection Extrem General: Yes normal to inspection and No edema Coding Level of Care Code Est Pt Level 4 (99419) Complex EM visit Add On G2211 Diagnoses Impaired fasting blood sugar R73.01 Morbid obesity E66.01 Essential hypertension I10 Hypertension type: essential hypertension Hypercholesterolemia E78.00 Hepatic steatosis K76.0 Degenerative disc disease, lumbar M51.36 Mild intermittent asthma without complication J45.20 Asthma severity: mild Asthma persistence: intermittent Asthma complication type: uncomplicated Low back pain M54.50 Assessment & Plan Assessment & Plan (1) Impaired fasting blood sugar: Code(s): R73.01 - Impaired fasting glucose Category: Medical Plan: Decrease the amount of carbohydrate intake, pasta, bread, rice and potatoes are all sugar and that is aside from all the sweet stuff, remember that fruits are good but they are Sweet also. (2) Morbid obesity: Code(s): E66.01 - Morbid (severe) obesity due to excess calories Category: Medical Plan: Diet and exercise semaglutide prescription sent (3) Hypertension: Code(s): I10 - Essential (primary) hypertension Category: Medical Qualifiers: Hypertension type: essential hypertension Qualified Code(s): I10 - Ess ential (primary) hypertension Plan: Continue with blood pressure medication. Decrease salt intake and exercise on lisinopril 40 mg once a day hydrochlorothiazide 25 mg once a day (4) Hypercholesterolemia: Code(s): E78.00 - Pure hypercholesterolemia, unspecified Category: Medical Plan: Avoid fried foods, chicken skin, eggs, butter margarine, pastries and meat. Be it pork or beef they have a lot of cholesterol September 2025 last tested (5) Hepatic steatosis: Code(s): K76.0 - Fatty (change of) liver, not elsewhere classified Category: Medical Plan: Low-fat diet and exercise (6) Degenerative disc disease, lumbar: Code(s): M51.36 - Other intervertebral disc degeneration, lumbar region Category: Medical Plan: Keep active continue with albuterol and mometasone (7) Asthma: Code(s): J45.909 - Unspecified asthma, uncomplicated Category: Medical Qualifiers: Asthma severity: mild Asthma persistence: intermittent Asthma complication type: uncomplicated Qualified Code(s): J45.20 - Mild intermittent asthma, uncomplicated Plan: Lose the weight and keep active (8) Low back pain: Code(s): M54.50 - Low back pain, unspecified Category: Medical Plan History of Present Illness The patient is an 80-year-old morbidly obese female presenting for a follow-up visit. She has noted an 8-pound weight loss. Her past medical history is significant for hypercholesterolemia, asthma, hypertension, lumbar degenerative disc disease, peripheral vascular disease, impaired glucose tolerance, and hepatic steatosis. The patient was last seen in July. Her most recent mammogram was in October 2023, and her last colon test was in 2005. A bone density scan is scheduled for November 2024. Recent lab work from August 2023 showed a normal blood count without anemia, normal electrolytes, and a creatinine of 1.23. A hemoglobin A1c in March was 6.0%. Her LDL was 86 in September 2024. Vitamin D level was low and thyroid function was normal. The patient is currently taking atorvastatin. Health Maintenance - Colon cancer screening: Last colon test was in 2005. - Breast cancer screening: Mammogram completed in October 2023. - Osteoporosis screening: Bone density scan is scheduled for November 2024. Social History - Diet: Advised to follow a low-fat diet. - Exercise: Encouraged to keep active. Review of Systems Physical Exam - General Appearance: Morbidly obese female. - Weight: Noted 8-pound weight loss. Results - Blood count (August 2023): Normal, no anemia. - Electrolytes (August 2023): Normal. - Renal function (August 2023): Creatinine 1.23. - Hemoglobin A1c (March): 6.0%. - LDL (September 2024): 86. - Vitamin D: Low. - Thyroid function: Normal. - Mammogram (October 2023): Results not specified. Plan Patient was informed and verbally consented to the use of an ambient scribe for clinic note documentation during this visit. 1. Prediabetes The patient's hemoglobin A1c was 6.0% in March. The plan includes diet and exercise, and a prescription for semaglutide was sent. 2. Hypertension The plan is to continue the current regimen of lisinopril 40 mg once a day and hydrochlorothiazide 25 mg once a day. 3. Hypercholesterolemia The patient's last LDL was 86. She will continue atorvastatin and is advised to follow a low-fat diet and exercise. 4. Asthma The plan is to continue using albuterol. 5. Morbid Obesity The patient is encouraged to lose weight and remain active. A prescription for semaglutide was sent which may aid in weight loss. Discussion Notes I have reviewed the patient's chronic conditions, including prediabetes, hypertension, hypercholesterolemia, and asthma. We will continue her current medications for blood pressure and cholesterol. For her prediabetes and weight management, I have sent a prescription for semaglutide and reinforced the importance of diet and exercise. She will also continue her albuterol inhaler for asthma. We noted that her last colon test was in 2005, and she is due for an updated screening. Patient Instructions - Continue to focus on diet and exercise for your overall health and to help manage your blood sugar. - A prescription for semaglutide has been sent to your pharmacy. - Continue taking Lisinopril 40 mg and Hydrochlorothiazide 25 mg once daily for your blood pressure. - Continue taking your atorvastatin for cholesterol and follow a low-fat diet. - Continue using your albuterol inhaler as needed for asthma. - Try to stay active to help with weight loss. Orders: Orders Lipid Panel 3 Months E78.00 - Pure hypercholesterolemia, unspecified, K76.0 - Fatty (change of) liver, not elsewhere classified Thyroid Stimulating Hormone 3 Months K76.0 - Fatty (change of) liver, not els ewhere classified Vitamin B12 and Folate 3 Months K76.0 - Fatty (change of) liver, not elsewhere classified Vitamin D 25-OH Total 3 Months K76.0 - Fatty (change of) liver, not elsewhere classified Complete Blood Count Auto Diff 3 Months K76.0 - Fatty (change of) liver, not elsewhere classified Comprehensive Met. Panel 3 Months K76.0 - Fatty (change of) liver, not elsewhere classified Free T4 (Free Thyroxine) 3 Months K76.0 - Fatty (change of) liver, not elsewhe re classified Hemoglobin A1c 3 Months K76.0 - Fatty (change of) liver, not elsewhere classified UA CC w/rflx Micro + Cult 3 Months K76.0 - Fatty (change of) liver, not elsewhere classified, R30.0 - Dysuria Medications: New cyclobenzaprine 5 mg PO TID PRN 30 tabs 0RF muscle spasm M54.50 - Low back pain, unspecified Refilled atorvastatin 10 mg PO DAILY 90 tabs 2RF E78.00 - Pure hypercholesterolemia, unspecified hydrochlorothiazide 25 mg PO DAILY 90 tabs 2RF I10 - Essential (primary) hypertension mometasone (Asmanex Twisthaler) 1 inh inhalation DAILY 3 ea 3RF 90 days J45.20 - Mild intermittent asthma, uncomplicated hydrocodone-acetaminophen 5-325 mg 1 tab PO BID PRN 45 tabs 0RF pain M51.36 - Other intervertebral disc degeneration, lumbar region lisinopril 40 mg PO DAILY 90 tabs 2RF I10 - Essential (primary) hypertension cholecalciferol (vitamin D3) 50 mcg PO DAILY 90 caps 3RF 90 days E55.9 - Vitamin D deficiency, unspecified, M81.0 - Age-related osteoporosis without current pathological fracture
== END 2025-09-13 11:55 | disposition home or self-care (01) ==
LOC: HO.HMCH 10:46
PROVIDERS: PCP Internal Medicine; Visit Provider Internal Medicine
DX: R73.01 Impaired fasting glucose (principal); E66.01 Morbid (severe) obesity due to excess calories; Z68.41 Body mass index [BMI] 40.0-44.9, adult; I10 Essential (primary) hypertension; E78.00 Pure hypercholesterolemia, unspecified; K76.0 Fatty (change of) liver, not elsewhere classified; M51.369 Other intervertebral disc degeneration, lumbar region without mention of lumbar back pain or lower extremity pain; J45.20 Mild intermittent asthma, uncomplicated; M54.50 Low back pain, unspecified

== ENCOUNTER → 2025-09-13 10:45 | Outpatient (BNVA) | payer MEDICARE, SELFPAY | PROVIDERS: PCP Internal Medicine; Visit Provider Internal Medicine | DX: I10 Essential (primary) hypertension (principal); R73.03 Prediabetes; E78.00 Pure hypercholesterolemia, unspecified; J45.909 Unspecified asthma, uncomplicated; E66.01 Morbid (severe) obesity due to excess calories; R73.01 Impaired fasting glucose; K76.0 Fatty (change of) liver, not elsewhere classified; M51.369 Other intervertebral disc degeneration, lumbar region without mention of lumbar back pain or lower extremity pain; J45.20 Mild intermittent asthma, uncomplicated; M54.50 Low back pain, unspecified; Z68.41 Body mass index [BMI] 40.0-44.9, adult | CPT/HCPCS: 96127; 99212 ==

== ENCOUNTER 2025-11-13 12:42 | Outpatient (AMB) | payer MEDICARE, SELFPAY ==
--- NOTE | 2025-11-13 12:45 | A.OFFPC_ITS ---
Vital Signs 11/13/25 12:47 Height 5 ft 2 in Weight 218 lb BMI 39.9 BP 142/68 H Blood Pressure Location Lt brachial Position Sitting Pulse 86 Pulse Source Pulse Oximeter Pulse Oximetry (%) 98 Oxygen Delivery Method Room Air Intake Visit Reasons: Morbid obesity Allergies No Known Allergies Allergy (Verified 11/13/25 12:48) Tobacco use date assessed: 09/13/25 Fall risk assessment: No Falls in past year Last assessed Fall Risk: 11/13/25 Dental Screening Dental Screen Date: 09/13/25 HPI HPI Comments History of Present Illness Details History of Present Illness The patient is an 80-year-old obese female with a history of hypercholesterolemia, hypertension, knee osteoarthritis, and impaired glucose tolerance, presenting for a follow-up visit. Her last visit was in August 2025. For her right knee osteoarthritis, she was seen by orthopedics in July and received injections. She was previously prescribed Wegovy for weight management but discontinued it due to nausea. She is on hydrochlorothiazide and lisinopril for her blood pressure and also takes a cholesterol medication. Her last blood work in August showed a creatinine of 1.23. Her hemoglobin A1c was 6.0% in March 2025, and her last LDL cholesterol was 86 in September 2024. Regarding health maintenance, she has declined colonoscopy and mammogram but is up to date with her bone density scan. Health Maintenance - The patient has declined a colonoscopy . - The patient is up to date with her bon e density scan. - The patient declined a mammogram. Social History Results - Laboratory: Creatinine was 1.23 in Aug. - Laboratory: Hemoglobin A1c was 6.0% in March 2025. - Laboratory: LDL was 86 in September. [facility] Medical History Obesity (BMI 30-39.9) Osteoporosis Breast lump on right side at 6 o'clock position Post-menopausal Screening for diabetes mellitus Colon cancer screening Hypertension Degenerative disc disease, lumbar Osteopenia Hypercholesterolemia Asthma Surgical History History of total right hip replacement History of right cataract surgery History of repair of left rotator cuff History of tubal ligation Family History Father No problems noted. Mother Liver cancer Social History Housing: House Alcohol intake: former Patient Tobacco Use Status: Former Tobacco user Tobacco use type: Cigarette Years Smoked: 16 years old 6 months only e-Cigarette/Vaping Use: Never Used Second Hand Smoke Exposure: No service: No Current occupational status: retired Cognitive needs: No Hearing needs: No Vision needs: Yes Questionnaire Thrive Questionnaire Date Thrive assessed: 05/31/25 PATRICIO-7 AMB Questionnaire PATRICIO-7 Date PATRICIO - 7 assessed: 05/31/25 Source: Developed by Drs. James Bolton, Kimberly Myers, Grabiel Kolb and colleagues, with an educational ravinder from [email or web address]. Review of Systems Narrative Review of Systems - Gastrointestinal: Reports nausea with Wegovy. Physical exam (Primary Care) Vital Signs: Last Vital Signs Pulse 86 11/13/25 12:47 BP 142/68 H 11/13/25 12:47 Pulse Ox 98 11/13/25 12:47 Oxygen Delivery Method Room Air 11/13/25 12:47 BMI result Body Mass Index 39.9 Tobacco/Smoking Status: Tobacco use Status Tobacco use date assessed 09/13/25 11/13/25 12:53 Patient Tobacco Use Status Former Tobacco user 11/13/25 12:53 Tobacco use type Cigarette 11/13/25 12:53 e-Cigarette/Vaping Use Never Used 11/13/25 12:53 Thrive Assessment: Date of Thrive Assessment Date Thrive assessed 05/31/25 11/13/25 12:53 Narrative Physical Exam - Vitals: Blood pressure was elevated. Const General: alert; No acute distress Eyes Conjunctivae: conjunctivae normal Resp Auscultation: clear to auscultation bilaterally Cardio Rate: regular rate Rhythm: regular rhythm GI Inspection: Yes normal to inspection Extrem General: Yes normal to inspection and No edema Coding Level of Care Code Est Pt Level 4 (92422) Add On Problem Visit Only Diagnoses Essential hypertension I10 Hypertension type: essential hypertension Hypercholesterolemia E78.00 Impaired fasting blood sugar R73.01 Obesity (BMI 30-39.9) E66.9 Hepatic steatosis K76.0 Breast cancer screening by mammogram Z12.31 Mild intermittent asthma without complication J45.20 Asthma complication type: uncomplicated Asthma persistence: intermittent Asthma severity: mild Knee osteoarthritis M17.9 Assessment & Plan Assessment & Plan (1) Hypertension: Code(s): I10 - Essential (primary) hypertension Category: Medical Qualifiers: Hypertension type: essential hypertension Qualified Code(s): I10 - Essential (primary) hypertension Plan: Continue with blood pressure medication. Decrease salt intake and exercise on hydrochlorothiazide 25 mg once a day lisinopril 40 mg once a day. Advised to monitor blood pressure at home and record (2) Hypercholesterolemia: Code(s): E78.00 - Pure hypercholesterolemia, unspecified Category: Medical Plan: Avoid fried foods, chicken skin, eggs, butter margarine, pastries and meat. Be it pork or beef they have a lot of cholesterol on atorvastatin 10 mg once a day . Advised blood work (3) Impaired fasting blood sugar: Code(s): R73.01 - Impaired fasting glucose Category: Medical Plan: Decrease the amount of carbohydrate intake, pasta, bread, rice and potatoes are all sugar and that is aside from all the sweet stuff, remember that fruits are good but they are Sweet also. Blood work requested March 2025 hemoglobin A1c was 6.0 (4) Obesity (BMI 30-39.9): Code(s): E66.9 - Obesity, unspecified Category: Medical Plan: Diet and exercise, patient has been placed on wegovy but had nausea and so will change to Zepbound (5) Hepatic steatosis: Code(s): K76.0 - Fatty (change of) liver, not elsewhere classified Category: Medical Plan: Low-fat diet and exercise (6) Breast cancer screening by mammogram: Code(s): Z12.31 - Encounter for screening mammogram for malignant neoplasm of breast Category: Medical Plan: Reminded about mammogram (7) Asthma: Code(s): J45.909 - Unspecified asthma, uncomplicated Category: Medical Qualifiers: Asthma complication type: uncomplicated Asthma persistence: intermittent Asthma severity: mild Qualified Code(s): J45.20 - Mild intermittent asthma, uncomplicated Plan: Patient on albuterol inhaler as needed with Asmanex as controller. Stable (8) Knee osteoarthritis: Code(s): M17.9 - Osteoarthritis of knee, unspecified Category: Medical Plan: Narcotic pain meds: Is being prescribed with the understanding that these medications are potentially addictive and should be used only when absolutely necessary and must always be secured. Any remaining pills should be safely disposed off appropriately. Patient is advised that narcotics can impaired judgment and one should not drive or operate heavy machinery while taking these medications. Never share these medications with anybody and do not leave them unattended. They will not be replaced under any circumstances. Plan Plan Patient was informed and verbally consented to the use of an ambient scribe for clinic note documentation during this visit. 1. Obesity The patient experienced nausea with Wegovy and stopped the medication. It was advised to switch to Zepbound, which may have a lower incidence of nausea. 2. Hypertension The patient continues to have elevated blood pressure readings despite being on hydrochlorothiazide and lisinopril. She was advised to monitor her blood pressure at home and maintain a record of the readings. 3. Hypercholesterolemia The patient will continue her current cholesterol medication and is due for repeat blood work to monitor her levels. 4. Impaired Glucose Tolerance Blood work was requested to monitor her glycemic control. Discussion Notes I discussed the patient's medications with her. Due to nausea as a side effect from Wegovy, I advised her to try Zepbound, as in my experience it has a lower incidence of nausea. I noted her blood pressure was still elevated and advised her to monitor her blood pressure at home and keep a record. I also advised for new blood work to check her cholesterol. Patient Instructions - You will be switched from Wegovy to Zepbound for weight management because it may cause less nausea. - Please check your blood pressure at home and write down the numbers. - You need to have blood work done to check your cholesterol levels. Medications: New tirzepatide (weight loss) (Zepbound) for 4 weeks 2.5 mg (0.5 mL) subcut QWEEK 2 mL 3RF E66.01 - Morbid (severe) obesity due to excess calories Discontinued semaglutide (weight loss) administer weeks 1 through 4 of therapy Discontinued Reason: Patient Refused 0.5 mg (0.5 mL) subcut QWEEK 2 mL 3RF
[2025-11-13 12:47] VITALS: BP 142/68; PULSE 86; O2SAT 98; BMI 39.9
== END 2025-11-13 15:53 | disposition home or self-care (01) ==
LOC: HO.HMCH 12:43
PROVIDERS: PCP Internal Medicine; Visit Provider Internal Medicine
DX: I10 Essential (primary) hypertension (principal); E78.00 Pure hypercholesterolemia, unspecified; R73.01 Impaired fasting glucose; E66.9 Obesity, unspecified; K76.0 Fatty (change of) liver, not elsewhere classified; Z12.31 Encounter for screening mammogram for malignant neoplasm of breast; J45.20 Mild intermittent asthma, uncomplicated; M17.9 Osteoarthritis of knee, unspecified

== ENCOUNTER → 2025-11-13 12:42 | Outpatient (BNVA) | payer MEDICARE, SELFPAY | PROVIDERS: PCP Internal Medicine; Visit Provider Internal Medicine | DX: Z12.31 Encounter for screening mammogram for malignant neoplasm of breast (principal); I10 Essential (primary) hypertension; E78.00 Pure hypercholesterolemia, unspecified; R73.01 Impaired fasting glucose; E66.9 Obesity, unspecified; K76.0 Fatty (change of) liver, not elsewhere classified; J45.31 Mild persistent asthma with (acute) exacerbation; M17.9 Osteoarthritis of knee, unspecified; Z68.39 Body mass index [BMI] 39.0-39.9, adult | CPT/HCPCS: 99212 ==